=== PATIENT | male | born 1945 | race Caucasian/White ===

== ENCOUNTER 2021-03-05 17:56 | Outpatient (CLI) | payer OTHER | END 2021-03-05 17:57 | disposition critical access hospital (66) | LOC: EMS 17:56 | DX: S00.83XA Contusion of other part of head, initial encounter (principal); W19.XXXA Unspecified fall, initial encounter; Y92.003 Bedroom of unspecified non-institutional (private) residence as the place of occurrence of the external cause; R41.0 Disorientation, unspecified | CPT/HCPCS: A0425; A0429 ==

== ENCOUNTER 2021-03-05 18:30 | Inpatient (IN) | payer OTHER ==
[2021-03-05 18:53] LABS: BASOPHILS # (AUTO) 0.1 10^3/uL (0.0-0.1); BASOPHILS % (AUTO) 0.3 %; EOSINOPHILS # (AUTO) 0.3 10^3/uL (0.0-0.7); EOSINOPHILS % (AUTO) 1.5 %; HCT - HEMATOCRIT 43.2 % (42.0-52.0); HGB - HEMOGLOBIN 14.3 g/dL (14.0-18.0); LYMPHOCYTES # (AUTO) 0.2 10^3/uL (1.5-3.5); LYMPHOCYTES % (AUTO) 1.3 %; MEAN CORPUSCULAR HEMOGLOBIN 31.4 pg (27.0-31.0); MEAN CORPUSCULAR HGB CONC 33.1 g/dL (32.0-36.0); MEAN CORPUSCULAR VOLUME 94.7 fL (80.0-94.0); MEAN PLATELET VOLUME 10.9 fL (7.4-11.4); MONOCYTES # (AUTO) 1.2 10^3/uL (0.0-1.0); MONOCYTES % (AUTO) 6.3 %; NEUTROPHILS # (AUTO) 16.6 10^3/uL (1.5-6.6); NEUTROPHILS % (AUTO) 90.1 %; PLT - PLATELET COUNT 179 10^3/uL (130-450); RED BLOOD COUNT 4.56 10^6/uL (4.70-6.10); RED CELL DISTRIBUTION WIDTH 13.1 % (12.0-15.0); WHITE BLOOD COUNT 18.4 x10^3/uL (4.8-10.8)
[2021-03-05 18:58] LABS: INR 1.2 (0.8-1.2); PT - PROTHROMBIN TIME 12.8 secs (9.9-12.6); SLIDE REVIEW? Indicated
[2021-03-05 18:59] LABS: LACTIC ACID, VENOUS 2.1 mmol/L (0.5-2.2)
[2021-03-05 19:03] LABS: ALBUMIN 4.7 g/dL (3.2-5.5); ALBUMIN/GLOBULIN RATIO 1.8 (1.0-2.2); BILIRUBIN,TOTAL 0.7 mg/dL (0.2-1.0); CALCIUM 9.2 mg/dL (8.5-10.3); CREATININE 1.6 mg/dL (0.6-1.2); POTASSIUM 3.1 mmol/L (3.5-5.0); TOTAL PROTEIN 7.3 g/dL (6.7-8.2)
--- NOTE | 2021-03-05 19:04 | XRAY Report ---
PROCEDURE: Chest 1 View X-Ray INDICATIONS: fever TECHNIQUE: One view of the chest was acquired. COMPARISON: None. FINDINGS: Surgical changes and devices: None. Lungs and pleura: No pleural effusions or pneumothorax. Lungs are clear. Mediastinum: Mediastinal contours appear normal. Heart size is normal. Bones and chest wall: No suspicious bony lesions. Overlying soft tissues appear unremarkable. IMPRESSION: 1. No acute cardiopulmonary disease. Reviewed by: Yong Julien MD on 03/05/2021 7:03 PM [facility] Approved by: Yong Julien MD on 03/05/2021 7:03 PM [facility] Station ID: [id number]
[2021-03-05 19:05] LABS: PARTIAL THROMBOPLASTIN TIME 26.2 secs (24.9-33.3)
[2021-03-05 19:06] LABS: BILIRUBIN,URINE NEGATIVE (NEGATIVE); GLUCOSE, URINE (UA) NEGATIVE (NEGATIVE); KETONES,URINE (UA) NEGATIVE (NEGATIVE); LEUKOCYTE ESTERASE, URINE TRACE (NEGATIVE); NITRITE,URINE POSITIVE (NEGATIVE); OCCULT BLOOD,URINE LARGE (NEGATIVE); PROTEIN,URINE TRACE mg/dL (NEGATIVE); UROBILINOGEN,URINE 0.2 (NORMAL) E.U./dL (NORMAL)
[2021-03-05 19:18] LABS: CLARITY,URINE HAZY (CLEAR)
[2021-03-05 19:19] LABS: BACTERIA,URINE Few /HPF (None Seen); SQUAMOUS EPITHELIAL CELL,UR RARE Squamous (<= Few)
--- NOTE | 2021-03-05 19:36 | CT Report ---
PROCEDURE: HEAD WO INDICATIONS: fall, altered TECHNIQUE: Noncontrast 4.5 mm thick angled axial sections acquired from the foramen magnum to the vertex. For r adiation dose reduction, the following was used: automated exposure control, adjustment of mA and/or kV according to patient size. COMPARISON: None. FINDINGS: Image quality: Excellent. CSF spaces: There is moderate cerebral volume loss with prominence of the ventricles and sulci. Ther e is also ex vacuo dilatation of the posterior horn of the left lateral ventricle secondary to left p arietal encephalomalacia. Basal cisterns are patent. No extra-axial fluid collections. Brain: No intracranial hemorrhage, mass, or mass effect. There is a moderate region of encephalomalac ia within the left parietal lobe. A small region of encephalomalacia is also demonstrated in the left frontal lobe. There are periventricular and subcortical white matter hypodensities consistent with m oderate chronic small vessel ischemic changes. Skull and face: Calvarium and visualized facial bones are intact, without suspicious lesions. Sinuses: Visualized sinuses and mastoids are clear. IMPRESSION: 1. No acute intracranial abnormality. 2. Left frontal and parietal encephalomalacia consistent with sequelae of prior infarcts or trauma. T here is associated ex vacuo dilatation of the left lateral ventricle. 3. Moderate cerebral volume loss and chronic white matter vessel skin changes Reviewed by: Yong Julien MD on 03/05/2021 7:35 PM PST Approved by: Yong Julien MD on 03/05/2021 7:35 PM PST Station ID: [id number]
--- NOTE | 2021-03-05 19:43 | CT Report ---
PROCEDURE: CERVICAL SPINE WO INDICATIONS: fall, altered TECHNIQUE: Noncontrast 3 mm thick sections acquired from the skull base to the T4 level. Sagittal and coronal r eformats were then constructed. For radiation dose reduction, the following was used: automated exp osure control, adjustment of mA and/or kV according to patient size. COMPARISON: None. FINDINGS: Image quality: Excellent. Bones: No definite fractures or subluxation. There is minimal retrolisthesis at C3-C4 and C4-C5. Th ere is minimal anterolisthesis at C6-C7 and C7-T1. There is multilevel generative disc disease includ ing severe degeneration at C3-C4, C4-C5, C5-C6, and C6-C7. There is multilevel facet arthropathy incl uding severe degeneration at C7-T1. Visualized superior ribs are intact. Soft tissues: Prevertebral soft tissues are normal in thickness. No paravertebral hematomas. No ap ical pneumothoraces. There is bilateral calcified plaque within the carotid bulbs. IMPRESSION: 1. No definite fracture or dislocation. 2. Multilevel degenerative disc disease including severe degeneration in the mid and lower cervical s pine. 3. Multilevel facet arthropathy most prominent at C7-T1. Reviewed by: Yong Julien MD on 03/05/2021 7:41 PM PST Approved by: Yong Julien MD on 03/05/2021 7:41 PM PST Station ID: [id number]
[2021-03-05 19:50] LABS: PLATELET MORPHOLOGY NORMAL APPEARANCE (NORMAL); RBC MORPHOLOGY (MULTIPLE) NORMAL APPEARANCE (NORMAL)
[2021-03-05 19:51] LABS: PLATELET ESTIMATE, MANUAL NORMAL (130-450,000) (NORMAL)
[2021-03-05] MEDS ORDERED: SODIUM CHLORIDE 0.9% 1,000 ML IV STA (20:06)
[2021-03-05] MEDS ORDERED: cefTRIAXone 1 GM VIAL IVP STA (20:06)
--- NOTE | 2021-03-05 20:07 | ED Physician Documentation ---
History of Present Illness - Stated complaint Stated Complaint: GLF, CONFUSION,INCONTINENT, RT FACIAL PAIN - Chief complaint Chief Complaint: Trauma Hd/Nk - History obtained from History obtained from: Patient, EMS - History of Present Illness Timing: Today Pain level max: 0 Pain level now: 0 - Additonal information Additional information: Patient is a 75-year-old male who is brought in by EMS today. He was found down on the ground at home. Last seen normal at about noon. He normally is coherent and able to take care of himself. Per family on scene per EMS patient was very confused and disoriented. Unknown how long he has been on the ground. Patient denies any pain. He was found to be incontinent. Review of Systems Unable to obtain: Confused Constitutional: reports: Fever (febrile here) Respiratory: denies: Cough GI: denies: Vomiting, Diarrhea PD PAST MEDICAL HISTORY - Past Medical History Past Medical History: Yes Cardiovascular: Hypertension Neuro: CVA - Present Medications Home Medications: Ambulatory Orders Medication Instructions Recorded Confirmed Atorvastatin [Lipitor] 1 tablet ORAL DAILY 03/05/21 03/05/21 Clopidogrel [Plavix] 1 tablet ORAL DAILY 03/05/21 03/05/21 Lisinopril [Zestril] 10 mg PO DAILY 03/05/21 03/05/21 Sertraline [Zoloft] 1 tab ORAL DAILY 03/05/21 03/05/21 amLODIPine [Norvasc] 1 tab ORAL DAILY 03/05/21 03/05/21 - Allergies Allergies/Adverse Reactions: Allergies Allergy/AdvReac Type Severity Reaction Status Date / Time No Known Drug Allergies Allergy Verified 03/05/21 18:38 - Living Situation Living Situation: reports: With family Living Arrangement: reports: At home - Social History Does the pt have substance abuse?: No PD ED PE NORMAL - Vitals Vital signs reviewed: Yes - General General: No acute distress, Well developed/nourished, Other (Alert, oriented to person and place, not to time) - HEENT HEENT: PERRL - Neck Neck: Supple, no meningeal sign - Cardiac Cardiac: RRR - Respiratory Respiratory: No respiratory distress, Clear bilaterally - Abdomen Abdomen: Soft, Non tender, Non distended - Back Back: No spinal TTP - Derm Derm: Warm and dry - Extremities Extremities: No calf tenderness / cord - Neuro Neuro: No motor deficit, No sensory deficit, Other (Alert, oriented to person and place, not to time) Eye Opening: Spontaneous Motor: Obeys Commands Verbal: Confused GCS Score: 14 - Psych Psych: Normal mood, Normal affect Results - Vitals Vitals: Vital Signs - 24 hr 03/05/21 03/05/21 03/05/21 18:31 19:18 21:05 Temperature 39.1 C H 37.2 C Heart Rate 105 H 97 92 Respiratory 25 H 21 25 H Rate Blood Pressure 111/72 113/71 117/77 O2 Saturation 97 96 98 Oxygen O2 Source Room air - EKG (time done) 1857 Rate: Rate (enter#) (98) Rhythm: NSR [place]: Normal Intervals: Prolonged [place] QRS: Normal Ischemia: Normal ST segments - Labs Labs: Laboratory Tests 03/05/21 03/05/21 03/05/21 18:36 18:36 18:36 WBC 18.4 H RBC 4.56 L Hgb 14.3 Hct 43.2 MCV 94.7 H MCH 31.4 H MCHC 33.1 RDW 13.1 Plt Count 179 MPV 10.9 Neut # (Auto) 16.6 H Lymph # (Auto) 0.2 L [place] # (Auto) 1.2 H Eos # (Auto) 0.3 Baso # (Auto) 0.1 Absolute Nucleated RBC 0.00 Nucleated RBC % 0.0 Manual Slide Review Indicated Platelet Estimate NORMAL (130-450,000) Platelet Morphology NORMAL APPEARANCE RBC Morph Micro Appear NORMAL APPEARANCE PT 12.8 H INR 1.2 APTT 26.2 Sodium 137 Potassium 3.1 L Chloride 103 Carbon Dioxide 23 Anion Gap 11.0 BUN 38 H Creatinine 1.6 H Estimated GFR (MDRD) 43 L Glucose 123 H Lactic Acid Calcium 9.2 Total Bilirubin 0.7 AST 61 H ALT 16 Alkaline Phosphatase 45 Total Protein 7.3 Albumin 4.7 Globulin 2.6 Albumin/Globulin Ratio 1.8 Lipase 29 Urine Color Urine Clarity Urine pH Ur Specific [place] Urine Protein Urine Glucose (UA) Urine Ketones Urine Occult Blood Urine Nitrite Urine Bilirubin Urine Urobilinogen Ur Leukocyte Esterase Urine RBC Urine WBC Ur Squamous Epith Cells Urine Bacteria Ur Microscopic Review Urine Culture Comments Nasal Adenovirus (PCR) Nasal B. parapertussis DNA (PCR) Nasal Coronavir 229E PCR Nasal Coronavir HKU1 PCR Nasal Coronavir NL63 PCR Nasal Coronavir OC43 PCR Nasal Enterovir/Rhinovir PCR Nasal Influenza B PCR Nasal Influenza A PCR Nasal Parainfluen 1 PCR Nasal Parainfluen 2 PCR Nasal Parainfluen 3 PCR Nasal Parainfluen 4 PCR Nasal RSV (PCR) Nasal B.pertussis DNA PCR Nasal C.pneumoniae (PCR) [place] Human Metapneumo PCR Nasal M.pneumoniae (PCR) Nasal SARS-CoV-2 (PCR) 03/05/21 03/05/21 03/05/21 18:36 18:55 18:55 WBC RBC Hgb Hct MCV MCH MCHC RDW Plt Count MPV Neut # (Auto) Lymph # (Auto) [place] # (Auto) Eos # (Auto) Baso # (Auto) Absolute Nucleated RBC Nucleated RBC % Manual Slide Review Platelet Estimate Platelet Morphology RBC Morph Micro Appear PT INR APTT Sodium Potassium Chloride Carbon Dioxide Anion Gap BUN Creatinine Estimated GFR (MDRD) Glucose Lactic Acid 2.1 Calcium Total Bilirubin AST ALT Alkaline Phosphatase Total Protein Albumin Globulin Albumin/Globulin Ratio Lipase Urine Color BROWN Urine Clarity HAZY Urine pH 5.0 Ur Specific [place] 1.025 Urine Protein TRACE Urine Glucose (UA) NEGATIVE Urine Ketones NEGATIVE Urine Occult Blood LARGE H Urine Nitrite POSITIVE H Urine Bilirubin NEGATIVE Urine Urobilinogen 0.2 (NORMAL) Ur Leukocyte Esterase TRACE H Urine RBC 6-10 H Urine WBC 6-10 H Ur Squamous Epith Cells RARE Squamous Urine Bacteria Few Ur Microscopic Review INDICATED Urine Culture Comments INDICATED Nasal Adenovirus (PCR) NOT DETECTED Nasal B. parapertussis DNA (PCR) NOT DETECTED Nasal Coronavir 229E PCR NOT DETECTED Nasal Coronavir HKU1 PCR NOT DETECTED Nasal Coronavir NL63 PCR NOT DETECTED Nasal Coronavir OC43 PCR NOT DETECTED Nasal Enterovir/Rhinovir PCR NOT DETECTED Nasal Influenza B PCR NOT DETECTED Nasal Influenza A PCR NOT DETECTED Nasal Parainfluen 1 PCR NOT DETECTED Nasal Parainfluen 2 PCR NOT DETECTED Nasal Parainfluen 3 PCR NOT DETECTED Nasal Parainfluen 4 PCR NOT DETECTED Nasal RSV (PCR) NOT DETECTED Nasal B.pertussis DNA PCR NOT DETECTED Nasal C.pneumoniae (PCR) NOT DETECTED [place] Human Metapneumo PCR NOT DETECTED Nasal M.pneumoniae (PCR) NOT DETECTED Nasal SARS-CoV-2 (PCR) NOT DETECTED - Rads (name of study) head Ct Radiology: Final report received, EMP read contemporaneously, See rad report c-spine CT Radiology: Final report received, EMP read contemporaneously, See rad report abd/pelvis CT Radiology: Final report received, EMP read contemporaneously, See rad report PD MEDICAL DECISION MAKING - ED course Complexity details: reviewed results, re-evaluated patient, considered differential, d/w patient ED course: 75-year-old male with with continued altered mental status. Appears to have pyelonephritis with fever and altered mental status. Likely early sepsis. Given IV fluids, IV antibiotics. We will admit for further care. Discussed the case with Dr. Celestin, hospitalist who accepts This document was made in part using voice recognition software. While efforts a re made to proofread this document, sound alike and grammatical errors may occur. Departure - Departure Disposition: 66 [facility] DC/Xfer Clinical Impression: Pyelonephritis UTI (urinary tract infection) Qualifiers: Urinary tract infection type: acute pyelonephritis Qualified Code(s): N10 - Acute pyelonephritis Fever Qualifiers: Fever type: unspecified Qualified Code(s): R50.9 - Fever, unspecified Altered mental status Qualifiers: Altered mental status type: disorientation Qualified Code(s): R41.0 - Disorientation, unspecified Sepsis Qualifiers: Sepsis type: sepsis due to unspecified organism Sepsis acute organ dysfunction status: without acute organ dysfunction Qualified Code(s): A41.9 - Sepsis, unspecified organism Condition: Stable
[2021-03-05 20:30] LABS: B. PARAPERTUSSIS- RESP PCR PAN NOT DETECTED; B. PERTUSSIS- RESP PCR PANEL NOT DETECTED; C. PNEUMONIAE- RESP PCR PANEL NOT DETECTED; CORONAVIRUS 229E-RESP PCR NOT DETECTED; CORONAVIRUS HKU1-RESP PCR NOT DETECTED; CORONAVIRUS NL63-RESP PCR NOT DETECTED; CORONAVIRUS OC43-RESP PCR NOT DETECTED; HUMAN METAPNEUMOVIRUS NOT DETECTED; INFLUENZA A- RESP PCR PANEL NOT DETECTED; INFLUENZA B - RESP PCR PANEL NOT DETECTED; M. PNEUMONIAE- RESP PCR PANEL NOT DETECTED; PARAINFLUENZA VIRUS 1 NOT DETECTED; PARAINFLUENZA VIRUS 2 NOT DETECTED; PARAINFLUENZA VIRUS 3 NOT DETECTED; PARAINFLUENZA VIRUS 4 NOT DETECTED; RHINOVIRUS/ENTEROVIRUS NOT DETECTED; RSV- RESP PCR PANEL NOT DETECTED; SARS-CoV-2 -RESP PCR PANEL NOT DETECTED
--- NOTE | 2021-03-05 20:47 | CT Report ---
PROCEDURE: Abdomen/Pelvis WO INDICATIONS: fever, UTI TECHNIQUE: Noncontrast 5 mm thick sections acquired from the diaphragms to the symphysis. 5 mm coronal and sagi ttal reformats were then performed. For radiation dose reduction, the following was used: automated exposure control, adjustment of mA and/or kV according to patient size. COMPARISON: None. FINDINGS: Image quality: Excellent. ABDOMEN: Lung bases: There is mild dependent atelectasis. Heart size is normal. There is a small hiatal hernia . Solid organs: Noncontrast evaluation of the liver demonstrates no focal hepatic lesions. Gallbladder appears within normal limits without calcified gallstones. Pancreas is normal in contours. No adren al nodules. The right kidney appears atrophic in size. There is no hydronephrosis. Mild nonspecific perinephric s tranding is demonstrated bilaterally. Bilateral vascular calcifications are demonstrated within the r enal arteries which limits evaluation for nonobstructing renal stones. There is an exophytic slightly hyperdense lesion in the left kidney measuring up to 1.2 cm which may represent a solid mass or hype rdense cyst. Peritoneum and bowel: Small and large bowel loops demonstrate normal wall thickness and caliber. The appendix is normal in appearance. There is colonic diverticulosis without acute diverticulitis. No fr ee fluid or air. Nodes and vessels: No retroperitoneal or mesenteric adenopathy by size criteria. Aorta and inferior vena cava are normal in caliber. There is extensive apical scarring vascular calcification most prom inent within the iliac arteries bilaterally. Evaluation limited in the absence of intravenous contras t. Miscellaneous: No ventral hernias. PELVIS: Genitourinary: There are dependent calcifications within the bladder measuring up to 0.8 cm compatibl e with urinary stones. Bladder wall appears normal in thickness. Miscellaneous: No inguinal hernias or adenopathy. Bones: No suspicious bony lesions. No vertebral body compression fractures. IMPRESSION: 1. No evidence of hydronephrosis. Mild nonspecific perinephric stranding is demonstrated bilaterally. No obstructing renal stones. 2. Dependent urinary stones within the bladder. No definite bladder wall thickening or fat stranding to suggest cystitis. 3. Small exophytic slightly hyperdense mass or cyst extending posteriorly from the left kidney. Initi al further evaluation may be obtained with a dedicated renal ultrasound. 4. Colonic diverticulosis. Reviewed by: Yong Julien MD on 03/05/2021 8:45 PM PST Approved by: Yong Julien MD on 03/05/2021 8:45 PM PST Station ID: [id number]
[2021-03-05] MEDS ORDERED: SODIUM CHLORIDE FLUSH 0.9% 10 ML SYRINGE IVP PRN (21:19)
[2021-03-05] MEDS ORDERED: ACETAMINOPHEN 325 MG TABLET PO PRN (21:19)
--- NOTE | 2021-03-05 21:29 | HISTORY & PHYSICAL EXAMINATION ---
Chief Complaint - Chief Complaint Chief Complaint: Found down, confused History of Present Illness - Admitted From Admitted From:: ED - History Obtained From History obtained from: ED provider and chart review - History of Present Illness HPI Comment/Other: This is a 75 year old white male with history of stroke about 10 years ago with unknown amount of residual deficit, and he lives with his son. He also has HTN and depression. Today the son found the patient down on the floor in the house and called 911. The paramedics found him to be confused, incontinent of urine b ut with stable vital signs. In the ED, he had a fever of 39 degrees C, elevated WBC of 18, Lactic Acid level of 2.1, and was still confused. His U/A showed large blood, (+) nitrites, high WBCs and bacteria present. His BUN/creat are elevated at 38/1.6 and there are no prior labs done here for comparison. The patient underwent a head CT, C-spine imaging and abdomen CT. These showed brain encephalomalacia consistent with old strokes, no acute stroke or hemorrhage, no trauma, and stones visible in the urinary bladder, an atrophied R kidney, perinephric stranding, but no hydronephrosis. He received iv Ceftiaxone and was started on iv fluids in the ED. He was presented to the Hospitalist team for admission for treatment of altered mental status, fever and complicated UTI. History - Past Medical History Cardiovascular: reports: Hypertension, High cholesterol Respiratory: reports: None Neuro: reports: CVA Endocrine/Autoimmune: reports: None GI: reports: None : reports: Other (Unknown) Psych: reports: Depression - Family & Social History Family History Comment/Other: Patient lives with his son [place]. He no longer drives. He is an avid fisherman. He is retired from [employer]. Living arrangement: At home Living Situation: With family Social History Notes: He quit smoking over 5 years ago. He drinks no alcohol. He uses no recreational or illicit drugs. - Substance History Use: Uses substance without health or social issues: NONE Meds/Allgy - Home Medications Home Medications: Ambulatory Orders Medication Instructions Recorded Confirmed Atorvastatin [Lipitor] 1 tablet ORAL DAILY 03/05/21 03/05/21 Clopidogrel [Plavix] 1 tablet ORAL DAILY 03/05/21 03/05/21 Lisinopril [Zestril] 10 mg PO DAILY 03/05/21 03/05/21 Sertraline [Zoloft] 1 tab ORAL DAILY 03/05/21 03/05/21 amLODIPine [Norvasc] 1 tab ORAL DAILY 03/05/21 03/05/21 - Allergies Allergies/Adverse Reactions: Allergies Allergy/AdvReac Type Severity Reaction Status Date / Time No Known Drug Allergies Allergy Verified 03/05/21 18:38 Review of Systems - Constitutional Constitutional: reports: Weakness (He remembers being on the floor but cannot remember how he got there.) - Musculoskeletal Musculoskeletal: reports: Other (Uses a walker to ambulate) - Neurological Neurological: reports: Memory problems - All Other Systems All Other Systems: reports: Other (A more complete review of systems could not be done since the patient is confused and slow to respond or says "I don't know" and is a poor historian.) Exam - Vital Signs Reviewed Vital Signs: Yes Vital Signs: Vital Signs x48h Temp Pulse Resp BP Pulse Ox 03/05/21 21:05 92 25 H 117/77 98 03/05/21 19:18 37.2 C 97 21 113/71 96 03/05/21 18:31 39.1 C H 105 H 25 H 111/72 97 - Physical Exam General Appearance: positive: No acute distress, Other (Disheveled with long hair and long baltazar, and appears older than his age.) Eyes Bilateral: positive: Normal inspection, EOMI ENT: positive: Dry mucous membranes Neck: positive: Nml inspection Respiratory: positive: No respiratory distress, Breath sounds nml Cardiovascular: positive: Regular rate & rhythm, No murmur Abdomen: positive: Non-tender, Nml bowel sounds, No distention Skin: positive: Warm, Dry Extremities: positive: Non-tender, No pedal edema Neurologic/Psychiatric: positive: Disoriented to person, Disoriented to time, Other (Equal strength bilat UEs and LEs, L hand has a resting tremor. Slow to answer and needs questions asked different ways ("Who do live with"? No answer. "Does your son have a ?","Yes" Does she live with you?", "Yes".) Sepsis Event Note (H) - Sepsis Criteria Sepsis Criteria: Recorded Temperature greater than 38.3C or Less than 36C, Recorded Heart Rate greater than 90 bpm, WBC count greater than 12,000 or less than 4000, ELECTRICAL SIGN SERVICER: altered consciousness (unrelated to primary neuro pathology), Metabolic: lactate > 2 mmol/L Conclusion/Plan - Problem List (1) Sepsis Conclusion/Plan: He has several criteria for sepsis. He will be admitted to inpatient status. Continue with IV fluids. Continue with empiric IV ceftriaxone, awaiting urine and blood cultures, sensitivities for adjustment of antibiotics. Follow WBC daily Qualifiers: Sepsis type: sepsis due to unspecified organism Qualified Code(s): A41.9 - Sepsis, unspecified organism (2) Pyelonephritis Conclusion/Plan: His urinalysis had hematuria. Altered mental status is likely related to his urinary tract infection. The CT imaging showed perinephric stranding which is consistent with pyelonephritis. Continue with IV antibiotics awaiting culture and sensitivity results. (3) Bladder stones Conclusion/Plan: There are currently no stones in the kidney creating obstruction. We will order a uric acid level. (4) MARIS (acute kidney injury) Conclusion/Plan: He has not had labs done at this hospital in the past therefore unknown if this is CKD related to the atrophic kidney seen on abdomen imaging or if this is MARIS related to this UTI. Avoid nephrotoxins. IV fluids will continue. Follow BMP daily (5) Altered mental status Conclusion/Plan: According to the ED provider discussion with the son, this confusion is more than his normal. Will give IV fluids and antibiotics for treatment of the UTI and follow his neuro status for hopeful improvement. Will order PT to evaluate and to continue walking with him to prevent deconditioning Qualifiers: Altered mental status type: disorientation Qualified Code(s): R41.0 - Disorientation, unspecified (6) Hypokalemia Conclusion/Plan: Replace. Follow BMP daily (7) History of CVA with residual deficit Conclusion/Plan: Brain imaging indicates significant encephalomalacia as a result of more than 1 prior stroke. We will continue with his daily antiplatelet agent and statin. (8) Hx of essential hypertension Conclusion/Plan: Patient normally takes lisinopril and amlodipine for blood pressure but here his blood pressure is normal at 120s over 80s. Will not yet resume his blood pressure meds until blood pressure rises. (9) Depression Conclusion/Plan: We will continue his home dose of Zoloft - Lab Results Fish Bones: 03/05/21 18:36 03/05/21 18:36
[2021-03-05] MEDS: SODIUM CHLORIDE 0.9% 1,000 ML IV SCH (22:01)
[2021-03-05] MEDS ORDERED: ZINC OXIDE 20% OINT 30 GM TUBE TOP PRN (22:57)
[2021-03-05] MEDS ORDERED: POTASSIUM CHLORIDE 20 MEQ TABLET PO ONE (23:46)
[2021-03-06] MEDS: SODIUM CHLORIDE FLUSH 0.9% 10 ML SYRINGE IVP SCH ×3 (00:27→17:02)
[2021-03-06 06:06] LABS: BASOPHILS % (AUTO) 0.3 %; EOSINOPHILS % (AUTO) 0.1 %; HGB - HEMOGLOBIN 12.2 g/dL (14.0-18.0); LYMPHOCYTES # (AUTO) 0.9 10^3/uL (1.5-3.5); LYMPHOCYTES % (AUTO) 6.4 %; MEAN CORPUSCULAR HEMOGLOBIN 31.3 pg (27.0-31.0); MEAN CORPUSCULAR VOLUME 94.9 fL (80.0-94.0); MEAN PLATELET VOLUME 10.8 fL (7.4-11.4); MONOCYTES # (AUTO) 0.9 10^3/uL (0.0-1.0); MONOCYTES % (AUTO) 6.5 %; NEUTROPHILS # (AUTO) 12.1 10^3/uL (1.5-6.6); NEUTROPHILS % (AUTO) 86.3 %; PLT - PLATELET COUNT 144 10^3/uL (130-450); RED CELL DISTRIBUTION WIDTH 13.2 % (12.0-15.0)
[2021-03-06 06:19] LABS: ALBUMIN 3.4 g/dL (3.2-5.5); ALBUMIN/GLOBULIN RATIO 1.5 (1.0-2.2); BILIRUBIN,TOTAL 0.7 mg/dL (0.2-1.0); CALCIUM 8.2 mg/dL (8.5-10.3); CREATININE 1.3 mg/dL (0.6-1.2); POTASSIUM 3.5 mmol/L (3.5-5.0); TOTAL PROTEIN 5.7 g/dL (6.7-8.2)
[2021-03-06] MEDS: SODIUM CHLORIDE 0.9% 1,000 ML IV SCH (07:54)
[2021-03-06] MEDS ORDERED: cefTRIAXone 2 GM in SODIUM CHLORIDE 0.9% MINIBAG 100 ML IV SCH (09:00)
[2021-03-06] MEDS ORDERED: cefTRIAXone 1 GM in SODIUM CHLORIDE 0.9% MINIBAG 100 ML IV SCH (09:00)
[2021-03-06] MEDS: cefTRIAXone 2 GM in SODIUM CHLORIDE 0.9% MINIBAG 100 ML IV SCH (09:11)
[2021-03-06] MEDS: CLOPIDOGREL 75 MG TABLET PO SCH (09:11)
[2021-03-06] MEDS: SERTRALINE 25 MG TABLET PO SCH (09:11)
--- NOTE | 2021-03-06 09:40 | PHARMACY PROGRESS NOTE ---
- Best Possible Medication History Admit Date and Time: 03/05/212118 Processed by: Nursing Medication History completed: Yes As the person ultimately responsible for medication therapy, providers are able to order a medication from an existing home medication list in [facility] via the "Reconcile Routine" prior to Confirmation of that medication by business support manager. Such practice is discouraged except when the physician, in their clinical judgment, deems that a medical need exists for a medication without regard to previous use.
--- NOTE | 2021-03-06 10:38 | ADVANCE CARE PLANNING NOTE ---
Advance Care Planning - Planning Encounter Date: 03/06/21 Time: 09:20 Purpose: Advanced care plan for patient Parties in Attendance: Patient and me Decisional Capacity of the Patient: pt is alert, orientated to himself, he know the hospital name, who is president, but unaware of the day. - Encounter Subjective/Patient's Story: Patient reported he had a stroke about 10 to 12 years ago. Since that, his quality life had reduce. He liked fishing before, now he can not fish. He can walk with walker at home. He lives with his son in [facility]. Patient report he smoked over 20 years, he stopped to smoke about 6 to 8 years ago. He has no alcohol or drug problem. He used to work at [employer]. He had 2 sons. he live with his son and two grandchildren. he report His father born in 1921, 1984, He did not remember what caused his father . His mother 20 years ago, unknown cause. He also reported he had no COVID-19 vaccination because he did not believe. Clearly patient would like to have "do not resuscitation, do not intubation" for his CODE STATUS. Objective/Medical Story: Patient has a medical history of stroke, hypertension, depression. You walk with a walker in the home. Patient was admitted in the hospital this time for fall in the home, confusion, and fever. Patient was found to have urinary sepsis. Goals of Care: Stabilization for his sepsis, hope d/c to home after he became Hemodynamically stable Plan: Stabilization for his sepsis, Antibiotics treatment for his urinary tract infection, nurse help pt out of bed to see if need PT/OT evaluation, hope d/c to home after he became Hemodynamically stable, Switch patient's CODE STATUS from full code to DNR per patient's wish. Code Status: Do Not Attempt Resuscitation Time spent on advance care plannin
--- NOTE | 2021-03-06 12:35 | PROVIDER PROGRESS NOTE ---
Assessment/Plan - Problem List (1) Altered mental status Qualifiers: Altered mental status type: disorientation Qualified Code(s): R41.0 - Disorientation, unspecified Assessment/Plan: 03/06 pt significantly improved. pt is alert and oriented +2, himself and location. it was likely caused by infection and fever. Continue antibiotics, IV fluids, neuro Check (2) Sepsis improved. Patient has no fever at today, WBC is reduced. Patient feels better, patient's mental status improved. 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 Blood culture and urine sensitivity study are pending (3) Pyelonephritis His urinalysis had hematuria, positive nitrite, esterase, pyuria. Altered mental status is likely related to his urinary tract infection. The CT imaging showed perinephric stranding which is suggestive to pyelonephritis. Continue with IV antibiotics, Intravenous IV fluids, awaiting Blood culture and sensitivity results. (4) Bladder stones Patient denies pain, CT of abdomen/pelvis reveal no evidence of obstruction, Continue IV fluids (5) MARIS (acute kidney injury) improved. Creatinine is 1.3 from 1.6 at admission. Avoid nephrotoxins. continue IV fluids will continue. Follow BMP daily (6) Hypokalemia resolved (7) History of CVA with residual deficit stable, continue antiplatelet agent and statin. (8) Hx of essential hypertension stable (9) Depression stable, continue home dose of Zoloft - Current Meds Current Meds: Current Medications Generic Name Dose Route Start Last Admin Trade Name Freq PRN Reason Stop Dose Admin Acetaminophen 650 mg 03/05/21 21:19 03/06/21 00:00 Acetaminophen 325 Mg Tablet PO 650 mg Q4HR PRN Administration Pain or Fever > 38C (100.4F) Clopidogrel Bisulfate 75 mg 03/06/21 09:00 03/06/21 09:11 Clopidogrel 75 Mg Tablet PO 75 mg DAILY CAROLYN Administration Sodium Chloride 1,000 mls @ 100 mls/hr 03/05/21 22:00 03/06/21 07:54 Normal Saline 0.9% IV 03/06/21 17:59 100 mls/hr .Q10H CAROLYN Administration Ceftriaxone Sodium 2 gm/ 100 mls @ 200 mls/hr 03/06/21 09:30 03/06/21 09:45 Sodium Chloride IV Infused DAILY CAROLYN Infusion Sertraline HCl 25 mg 03/06/21 09:00 03/06/21 09:11 Sertraline 25 Mg Tablet PO 25 mg DAILY CAROLYN Administration Sodium Chloride 10 ml 03/05/21 21:19 03/05/21 22:01 Sodium Chloride Flush 0.9% 10 Ml Syringe IVP 10 ml PRN PRN Administration NEEDED PER PROVIDER ORDERS Sodium Chloride 10 ml 03/06/21 01:00 03/06/21 09:11 Sodium Chloride Flush 0.9% 10 Ml Syringe IVP 10 ml 0100,0900,1700 CAROLYN Administration - Lab Result Fish Bone Diagrams: 03/06/21 05:33 03/06/21 05:33 - Additional Planning My Orders: My Active Orders 03/06/21 09:30 cefTRIAXone [Rocephin] 2 gm Sodium Chloride 0.9% Minibag [Normal Saline 0.9% Minibag] 100 ml IV DAILY 03/06/21 10:29 Out of bed 3+ hours today [RC] TID 03/06/21 10:36 Code Status [OTHERS] Routine 03/06/21 21:00 Atorvastatin [Lipitor] 20 mg PO QPM Subjective - Subjective Patient Reports: Feeling Better, Resting Comfortably Objective Vital Signs: Vital Signs - 24 hr 03/05/21 03/05/21 03/05/21 18:31 19:18 21:05 Temperature 39.1 C H 37.2 C Heart Rate 105 H 97 92 Heart Rate [ Brachial] Heart Rate [ Monitoring electrodes] Respiratory 25 H 21 25 H Rate Blood Pressure 111/72 113/71 117/77 Blood Pressure [Right Brachial artery] O2 Saturation 97 96 98 03/05/21 03/05/21 03/06/21 22:20 23:51 01:24 Temperature 37.1 C 38.4 C H 37.4 C Heart Rate Heart Rate [ 82 Brachial] Heart Rate [ 91 Monitoring electrodes] Respiratory 18 24 Rate Blood Pressure Blood Pressure 99/64 104/58 L [Right Brachial artery] O2 Saturation 99 96 03/06/21 03/06/21 05:39 07:55 Temperature 36.9 C 37 C Heart Rate Heart Rate [ 65 75 Brachial] Heart Rate [ Monitoring electrodes] Respiratory 24 21 Rate Blood Pressure Blood Pressure 124/54 L 119/57 L [Right Brachial artery] O2 Saturation 96 98 Oxygen O2 Source Room air I&O (Last 24 Hrs): Intake and Output Totals x24h 03/04/21 03/05/21 03/06/21 23:59 23:59 23:59 Intake Total 1000 1718.333 Output Total 300 Balance 1000 1418.333 General: Alert, Oriented x3, Cooperative, No acute distress HEENT: Atraumatic, PERRLA Neck: Supple Lymphatic: no adenopathy Neuro: Alert, Oriented Times 3 Cardiovascular: Regular rate, Normal S1, Normal S2 Respiratory: Chest non-tender, No respiratory distress Abdomen: Normal bowel sounds, Soft Extremities: Normal pulses - Results Results: Laboratory Results WBC 14.0 x10^3/uL (4.8-10.8) H 03/06/21 05:33 RBC 3.90 10^6/uL (4.70-6.10) L 03/06/21 05:33 Hgb 12.2 g/dL (14.0-18.0) L 03/06/21 05:33 Hct 37.0 % (42.0-52.0) L 03/06/21 05:33 MCV 94.9 fL (80.0-94.0) H 03/06/21 05:33 MCH 31.3 pg (27.0-31.0) H 03/06/21 05:33 MCHC 33.0 g/dL (32.0-36.0) 03/06/21 05:33 RDW 13.2 % (12.0-15.0) 03/06/21 05:33 Plt Count 144 10^3/uL (130-450) 03/06/21 05:33 MPV 10.8 fL (7.4-11.4) 03/06/21 05:33 Neut # (Auto) 12.1 10^3/uL (1.5-6.6) H 03/06/21 05:33 Lymph # (Auto) 0.9 10^3/uL (1.5-3.5) L 03/06/21 05:33 Travis # (Auto) 0.9 10^3/uL (0.0-1.0) 03/06/21 05:33 Eos # (Auto) 0.0 10^3/uL (0.0-0.7) 03/06/21 05:33 Baso # (Auto) 0.0 10^3/uL (0.0-0.1) 03/06/21 05:33 Absolute Nucleated RBC 0.00 x10^3/uL 03/06/21 05:33 Nucleated RBC % 0.0 /100WBC 03/06/21 05:33 Manual Slide Review Indicated 03/05/21 18:36 Platelet Estimate NORMAL (130-450,000) (NORMAL) 03/05/21 18:36 Platelet Morphology NORMAL APPEARANCE (NORMAL) 03/05/21 18:36 RBC Morph Micro Appear NORMAL APPEARANCE (NORMAL) 03/05/21 18:36 PT 12.8 secs (9.9-12.6) H 03/05/21 18:36 INR 1.2 (0.8-1.2) 03/05/21 18:36 APTT 26.2 secs (24.9-33.3) 03/05/21 18:36 Sodium 139 mmol/L (135-145) 03/06/21 05:33 Potassium 3.5 mmol/L (3.5-5.0) 03/06/21 05:33 Chloride 109 mmol/L (101-111) 03/06/21 05:33 Carbon Dioxide 21 mmol/L (21-32) 03/06/21 05:33 Anion Gap 9.0 (6-13) 03/06/21 05:33 BUN 31 mg/dL (6-20) H 03/06/21 05:33 Creatinine 1.3 mg/dL (0.6-1.2) H 03/06/21 05:33 Estimated GFR (MDRD) 54 (>89) L 03/06/21 05:33 Glucose 102 mg/dL (70-100) H 03/06/21 05:33 Lactic Acid 1.3 mmol/L (0.5-2.2) 03/05/21 22:23 Calcium 8.2 mg/dL (8.5-10.3) L 03/06/21 05:33 Total Bilirubin 0.7 mg/dL (0.2-1.0) 03/06/21 05:33 AST 261 IU/L (10-42) H 03/06/21 05:33 ALT 35 IU/L (10-60) 03/06/21 05:33 Alkaline Phosphatase 31 IU/L (42-121) L 03/06/21 05:33 Total Protein 5.7 g/dL (6.7-8.2) L 03/06/21 05:33 Albumin 3.4 g/dL (3.2-5.5) 03/06/21 05:33 Globulin 2.3 g/dL (2.1-4.2) 03/06/21 05:33 Albumin/Globulin Ratio 1.5 (1.0-2.2) 03/06/21 05:33 Lipase 29 U/L (22-51) 03/05/21 18:36 Urine Color BROWN 03/05/21 18:55 Urine Clarity HAZY (CLEAR) 03/05/21 18:55 Urine pH 5.0 PH (5.0-7.5) 03/05/21 18:55 Ur Specific [place] 1.025 (1.002-1.030) 03/05/21 18:55 Urine Protein TRACE mg/dL (NEGATIVE) 03/05/21 18:55 Urine Glucose (UA) NEGATIVE mg/dL (NEGATIVE) 03/05/21 18:55 Urine Ketones NEGATIVE mg/dL (NEGATIVE) 03/05/21 18:55 Urine Occult Blood LARGE (NEGATIVE) H 03/05/21 18:55 Urine Nitrite POSITIVE (NEGATIVE) H 03/05/21 18:55 Urine Bilirubin NEGATIVE (NEGATIVE) 03/05/21 18:55 Urine Urobilinogen 0.2 (NORMAL) E.U./dL (NORMAL) 03/05/21 18:55 Ur Leukocyte Esterase TRACE (NEGATIVE) H 03/05/21 18:55 Urine RBC 6-10 /HPF (0-5) H 03/05/21 18:55 Urine WBC 6-10 /HPF (0-3) H 03/05/21 18:55 Ur Squamous Epith Cells RARE Squamous (<= Few) 03/05/21 18:55 Urine Bacteria Few /HPF (None Seen) 03/05/21 18:55 Ur Microscopic Review INDICATED 03/05/21 18:55 Urine Culture Comments INDICATED 03/05/21 18:55 Nasal Adenovirus (PCR) NOT DETECTED 03/05/21 18:55 Nasal B. parapertussis DNA (PCR) NOT DETECTED 03/05/21 18:55 Nasal Coronavir 229E PCR NOT DETECTED 03/05/21 18:55 Nasal Coronavir HKU1 PCR NOT DETECTED 03/05/21 18:55 Nasal Coronavir NL63 PCR NOT DETECTED 03/05/21 18:55 Nasal Coronavir OC43 PCR NOT DETECTED 03/05/21 18:55 Nasal Enterovir/Rhinovir PCR NOT DETECTED 03/05/21 18:55 Nasal Influenza B PCR NOT DETECTED 03/05/21 18:55 Nasal Influenza A PCR NOT DETECTED 03/05/21 18:55 Nasal Parainfluen 1 PCR NOT DETECTED 03/05/21 18:55 Nasal Parainfluen 2 PCR NOT DETECTED 03/05/21 18:55 Nasal Parainfluen 3 PCR NOT DETECTED 03/05/21 18:55 Nasal Parainfluen 4 PCR NOT DETECTED 03/05/21 18:55 Nasal RSV (PCR) NOT DETECTED 03/05/21 18:55 Nasal B.pertussis DNA PCR NOT DETECTED 03/05/21 18:55 Nasal C.pneumoniae (PCR) NOT DETECTED 03/05/21 18:55 Glen Human Metapneumo PCR NOT DETECTED 03/05/21 18:55 Nasal M.pneumoniae (PCR) NOT DETECTED 03/05/21 18:55 Nasal SARS-CoV-2 (PCR) NOT DETECTED 03/05/21 18:55 Sepsis Event Note (H) - Sepsis Criteria Sepsis Criteria: Recorded Temperature greater than 38.3C or Less than 36C, R ecorded Heart Rate greater than 90 bpm, WBC count greater than 12,000 or less than 4000, 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 (unrelated to primary neuro pathology), Metabolic: lactate > 2 mmol/L ABX Reporting Has patient been on IV antibiotics over the past 48 hours?: Yes Current Medications - Current Medications Current Medications: Active Medications Acetaminophen (Acetaminophen 325 Mg Tablet) 650 mg PO Q4HR PRN PRN Reason: Pain or Fever > 38C (100.4F) Last Admin: 03/06/21 00:00 Dose: 650 mg Documented by: Atorvastatin Calcium (Atorvastatin 10 Mg Tablet) 20 mg PO QPM CAROLYN Clopidogrel Bisulfate (Clopidogrel 75 Mg Tablet) 75 mg PO DAILY COUNT INCLUDES THE [facility] Last Admin: 03/06/21 09:11 Dose: 75 mg Documented by: Sodium Chloride (Normal Saline 0.9%) 1,000 mls @ 100 mls/hr IV .Q10H CAROLYN Stop: 03/06/21 17:59 Last Admin: 03/06/21 07:54 Dose: 100 mls/hr Documented by: Ceftriaxone Sodium 2 gm/ (Sodium Chloride) 100 mls @ 200 mls/hr IV DAILY COUNT INCLUDES THE [facility] Last Infusion: 03/06/21 09:45 Dose: Infused Documented by: Multi-Ingredient Ointment (Zinc Oxide 20% Oint 30 Gm Tube) 1 applic TOP PRN PRN PRN Reason: Skin Care Sertraline HCl (Sertraline 25 Mg Tablet) 25 mg PO DAILY COUNT INCLUDES THE [facility] Last Admin: 03/06/21 09:11 Dose: 25 mg Documented by: Sodium Chloride (Sodium Chloride Flush 0.9% 10 Ml Syringe) 10 ml IVP PRN PRN PRN Reason: NEEDED PER PROVIDER ORDERS Last Admin: 03/05/21 22:01 Dose: 10 ml Documented by: Sodium Chloride (Sodium Chloride Flush 0.9% 10 Ml Syringe) 10 ml IVP 0100,0900,1700 COUNT INCLUDES THE [facility] Last Admin: 03/06/21 09:11 Dose: 10 ml Documented by: Atorvastatin [Lipitor] 1 tablet ORAL DAILY 03/05/21 Clopidogrel [Plavix] 1 tablet ORAL DAILY 03/05/21 Lisinopril [Zestril] 10 mg PO DAILY 03/05/21 Sertraline [Zoloft] 1 tab ORAL DAILY 03/05/21 amLODIPine [Norvasc] 1 tab ORAL DAILY 03/05/21
[2021-03-06] MEDS ORDERED: ATORVASTATIN 10 MG TABLET PO SCH (21:00)
[2021-03-07] MEDS: SODIUM CHLORIDE FLUSH 0.9% 10 ML SYRINGE IVP SCH ×2 (00:24→08:30)
[2021-03-07 06:33] LABS: BASOPHILS % (AUTO) 0.4 %; EOSINOPHILS # (AUTO) 0.1 10^3/uL (0.0-0.7); EOSINOPHILS % (AUTO) 0.8 %; HCT - HEMATOCRIT 38.4 % (42.0-52.0); HGB - HEMOGLOBIN 12.8 g/dL (14.0-18.0); LYMPHOCYTES # (AUTO) 1.1 10^3/uL (1.5-3.5); LYMPHOCYTES % (AUTO) 13.5 %; MEAN CORPUSCULAR HEMOGLOBIN 31.5 pg (27.0-31.0); MEAN CORPUSCULAR HGB CONC 33.3 g/dL (32.0-36.0); MEAN CORPUSCULAR VOLUME 94.6 fL (80.0-94.0); MEAN PLATELET VOLUME 10.8 fL (7.4-11.4); MONOCYTES # (AUTO) 0.6 10^3/uL (0.0-1.0); MONOCYTES % (AUTO) 7.6 %; NEUTROPHILS # (AUTO) 6.5 10^3/uL (1.5-6.6); NEUTROPHILS % (AUTO) 77.3 %; PLT - PLATELET COUNT 149 10^3/uL (130-450); RED BLOOD COUNT 4.06 10^6/uL (4.70-6.10); RED CELL DISTRIBUTION WIDTH 13.2 % (12.0-15.0); WHITE BLOOD COUNT 8.4 x10^3/uL (4.8-10.8)
[2021-03-07 06:42] LABS: CALCIUM 8.5 mg/dL (8.5-10.3); POTASSIUM 3.7 mmol/L (3.5-5.0)
[2021-03-07] MEDS: SERTRALINE 25 MG TABLET PO SCH (08:30)
[2021-03-07] MEDS: CLOPIDOGREL 75 MG TABLET PO SCH (08:30)
[2021-03-07] MEDS: cefTRIAXone 2 GM in SODIUM CHLORIDE 0.9% MINIBAG 100 ML IV SCH (08:30)
--- NOTE | 2021-03-07 08:51 | PROVIDER PROGRESS NOTE ---
Assessment/Plan - Current Meds Current Meds: Current Medications Generic Name Dose Route Start Last Admin Trade Name Freq PRN Reason Stop Dose Admin Acetaminophen 650 mg 03/05/21 21:19 03/06/21 00:00 Acetaminophen 325 Mg Tablet PO 650 mg Q4HR PRN Administration Pain or Fever > 38C (100.4F) Atorvastatin Calcium 20 mg 03/06/21 21:00 03/06/21 21:00 Atorvastatin 10 Mg Tablet PO 20 mg QPM CAROLYN Administration Clopidogrel Bisulfate 75 mg 03/06/21 09:00 03/07/21 08:30 Clopidogrel 75 Mg Tablet PO 75 mg DAILY CAROLYN Administration Ceftriaxone Sodium 2 gm/ 100 mls @ 200 mls/hr 03/06/21 09:30 03/07/21 08:30 Sodium Chloride IV 200 mls/hr DAILY CAROLYN Administration Sertraline HCl 25 mg 03/06/21 09:00 03/07/21 08:30 Sertraline 25 Mg Tablet PO 25 mg DAILY CAROLYN Administration Sodium Chloride 10 ml 03/05/21 21:19 03/05/21 22:01 Sodium Chloride Flush 0.9% 10 Ml Syringe IVP 10 ml PRN PRN Administration NEEDED PER PROVIDER ORDERS Sodium Chloride 10 ml 03/06/21 01:00 03/07/21 08:30 Sodium Chloride Flush 0.9% 10 Ml Syringe IVP 10 ml 0100,0900,1700 CAROLYN Administration - Lab Result Fish Bone Diagrams: 03/07/21 06:22 03/07/21 06:22 Objective Vital Signs: Vital Signs - 24 hr 03/06/21 03/06/21 03/06/21 11:50 12:54 16:26 Temperature 36.9 C 37.2 C Heart Rate [ 75 70 Brachial] Heart Rate [ 66 Sitting] Respiratory 20 18 Rate Blood Pressure 124/69 136/70 H [Right Brachial artery] Blood Pressure 124/69 [Sitting] O2 Saturation 97 95 03/06/21 03/06/21 03/07/21 21:00 23:52 04:25 Temperature 37.6 C 37.1 C 36.8 C Heart Rate [ 66 66 83 Brachial] Heart Rate [ Sitting] Respiratory 18 20 20 Rate Blood Pressure 123/62 146/68 H 112/71 [Right Brachial artery] Blood Pressure [Sitting] O2 Saturation 97 98 97 03/07/21 07:37 Temperature 37.0 C Heart Rate [ 74 Brachial] Heart Rate [ Sitting] Respiratory 18 Rate Blood Pressure 143/66 H [Right Brachial artery] Blood Pressure [Sitting] O2 Saturation 97 Oxygen O2 Source Room air I&O (Last 24 Hrs): Intake and Output Totals x24h 03/05/21 03/06/21 03/07/21 23:59 23:59 23:59 Intake Total 1000 3498.333 Output Total 825 450 Balance 1000 2673.333 -450 - Results Results: Laboratory Results WBC 8.4 x10^3/uL (4.8-10.8) 03/07/21 06:22 RBC 4.06 10^6/uL (4.70-6.10) L 03/07/21 06:22 Hgb 12.8 g/dL (14.0-18.0) L 03/07/21 06:22 Hct 38.4 % (42.0-52.0) L 03/07/21 06:22 MCV 94.6 fL (80.0-94.0) H 03/07/21 06:22 MCH 31.5 pg (27.0-31.0) H 03/07/21 06:22 MCHC 33.3 g/dL (32.0-36.0) 03/07/21 06:22 RDW 13.2 % (12.0-15.0) 03/07/21 06:22 Plt Count 149 10^3/uL (130-450) 03/07/21 06:22 MPV 10.8 fL (7.4-11.4) 03/07/21 06:22 Neut # (Auto) 6.5 10^3/uL (1.5-6.6) 03/07/21 06:22 Lymph # (Auto) 1.1 10^3/uL (1.5-3.5) L 03/07/21 06:22 Levy # (Auto) 0.6 10^3/uL (0.0-1.0) 03/07/21 06:22 Eos # (Auto) 0.1 10^3/uL (0.0-0.7) 03/07/21 06:22 Baso # (Auto) 0.0 10^3/uL (0.0-0.1) 03/07/21 06:22 Absolute Nucleated RBC 0.00 x10^3/uL 03/07/21 06:22 Nucleated RBC % 0.0 /100WBC 03/07/21 06:22 Manual Slide Review Indicated 03/05/21 18:36 Platelet Estimate NORMAL (130-450,000) (NORMAL) 03/05/21 18:36 Platelet Morphology NORMAL APPEARANCE (NORMAL) 03/05/21 18:36 RBC Morph Micro Appear NORMAL APPEARANCE (NORMAL) 03/05/21 18:36 PT 12.8 secs (9.9-12.6) H 03/05/21 18:36 INR 1.2 (0.8-1.2) 03/05/21 18:36 APTT 26.2 secs (24.9-33.3) 03/05/21 18:36 Sodium 138 mmol/L (135-145) 03/07/21 06:22 Potassium 3.7 mmol/L (3.5-5.0) 03/07/21 06:22 Chloride 107 mmol/L (101-111) 03/07/21 06:22 Carbon Dioxide 21 mmol/L (21-32) 03/07/21 06:22 Anion Gap 10.0 (6-13) 03/07/21 06:22 BUN 18 mg/dL (6-20) 03/07/21 06:22 Creatinine 1.0 mg/dL (0.6-1.2) 03/07/21 06:22 Estimated GFR (MDRD) 73 (>89) L 03/07/21 06:22 Glucose 100 mg/dL (70-100) 03/07/21 06:22 Lactic Acid 1.3 mmol/L (0.5-2.2) 03/05/21 22:23 Calcium 8.5 mg/dL (8.5-10.3) 03/07/21 06:22 Total Bilirubin 0.7 mg/dL (0.2-1.0) 03/06/21 05:33 AST 261 IU/L (10-42) H 03/06/21 05:33 ALT 35 IU/L (10-60) 03/06/21 05:33 Alkaline Phosphatase 31 IU/L (42-121) L 03/06/21 05:33 Total Protein 5.7 g/dL (6.7-8.2) L 03/06/21 05:33 Albumin 3.4 g/dL (3.2-5.5) 03/06/21 05:33 Globulin 2.3 g/dL (2.1-4.2) 03/06/21 05:33 Albumin/Globulin Ratio 1.5 (1.0-2.2) 03/06/21 05:33 Lipase 29 U/L (22-51) 03/05/21 18:36 Urine Color BROWN 03/05/21 18:55 Urine Clarity HAZY (CLEAR) 03/05/21 18:55 Urine pH 5.0 PH (5.0-7.5) 03/05/21 18:55 Ur Specific [place] 1.025 (1.002-1.030) 03/05/21 18:55 Urine Protein TRACE mg/dL (NEGATIVE) 03/05/21 18:55 Urine Glucose (UA) NEGATIVE mg/dL (NEGATIVE) 03/05/21 18:55 Urine Ketones NEGATIVE mg/dL (NEGATIVE) 03/05/21 18:55 Urine Occult Blood LARGE (NEGATIVE) H 03/05/21 18:55 Urine Nitrite POSITIVE (NEGATIVE) H 03/05/21 18:55 Urine Bilirubin NEGATIVE (NEGATIVE) 03/05/21 18:55 Urine Urobilinogen 0.2 (NORMAL) E.U./dL (NORMAL) 03/05/21 18:55 Ur Leukocyte Esterase TRACE (NEGATIVE) H 03/05/21 18:55 Urine RBC 6-10 /HPF (0-5) H 03/05/21 18:55 Urine WBC 6-10 /HPF (0-3) H 03/05/21 18:55 Ur Squamous Epith Cells RARE Squamous (<= Few) 03/05/21 18:55 Urine Bacteria Few /HPF (None Seen) 03/05/21 18:55 Ur Microscopic Review INDICATED 03/05/21 18:55 Urine Culture Comments INDICATED 03/05/21 18:55 Nasal Adenovirus (PCR) NOT DETECTED 03/05/21 18:55 Nasal B. parapertussis DNA (PCR) NOT DETECTED 03/05/21 18:55 Nasal Coronavir 229E PCR NOT DETECTED 03/05/21 18:55 Nasal Coronavir HKU1 PCR NOT DETECTED 03/05/21 18:55 Nasal Coronavir NL63 PCR NOT DETECTED 03/05/21 18:55 Nasal Coronavir OC43 PCR NOT DETECTED 03/05/21 18:55 Nasal Enterovir/Rhinovir PCR NOT DETECTED 03/05/21 18:55 Nasal Influenza B PCR NOT DETECTED 03/05/21 18:55 Nasal Influenza A PCR NOT DETECTED 03/05/21 18:55 Nasal Parainfluen 1 PCR NOT DETECTED 03/05/21 18:55 Nasal Parainfluen 2 PCR NOT DETECTED 03/05/21 18:55 Nasal Parainfluen 3 PCR NOT DETECTED 03/05/21 18:55 Nasal Parainfluen 4 PCR NOT DETECTED 03/05/21 18:55 Nasal RSV (PCR) NOT DETECTED 03/05/21 18:55 Nasal B.pertussis DNA PCR NOT DETECTED 03/05/21 18:55 Nasal C.pneumoniae (PCR) NOT DETECTED 03/05/21 18:55 Glen Human Metapneumo PCR NOT DETECTED 03/05/21 18:55 Nasal M.pneumoniae (PCR) NOT DETECTED 03/05/21 18:55 Nasal SARS-CoV-2 (PCR) NOT DETECTED 03/05/21 18:55 Sepsis Event Note (H) - Sepsis Criteria Sepsis Criteria: Recorded Temperature greater than 38.3C or Less than 36C, Recorded Heart Rate greater than 90 bpm, WBC count greater than 12,000 or less than 4000, 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
--- NOTE | 2021-03-07 12:40 | DISCHARGE SUMMARY ---
Discharge Summary Admit Date: 03/05/21 Discharge Date: 03/08/21 Discharging Provider: Ozzy Delong Primary Care Provider: Martínez Sauceda Condition at Discharge: Stable Discharge Disposition: 01 Home, Self Care - DIAGNOSES Admission Diagnoses: Sepsis Pyelonephritis Bladder stones MARIS Altered mental status Hypokalemia Hx of CVA with residual deficit History of essential hypertension Depression Discharge Diagnoses with Status of Each Condition: Sepsis: Acute. 2/2 Pyelonephritis. Improved/Resolved. Cipro 500mg po bid X 7 days Pyelonephritis: Acute. Improved/Resolved. Cipro 500mg po bid X 7 days Bladder stones: Resolved MARIS: Resolved. Kikely 2/2 pyelonephritis Altered mental status: Acute. Likely 2/2 Sepsis. Resolved Hypokalemia: Acute. Resolved Hx of CVA with residual deficit: Chronic. Continue home medications History of essential hypertension: Chronic. Stable. Continue home medications Depression: Chronic. Continue home medications - HPI History of Present Illness: This is a 75 year old white male with history of stroke about 10 years ago with unknown amount of residual deficit, and he lives with his son. He also has HTN and depression. Today the son found the patient down on the floor in the house and called 911. The paramedics found him to be confused, incontinent of urine but with stable vital signs. In the ED, he had a fever of 39 degrees C, elevated WBC of 18, Lactic Acid level of 2.1, and was still confused. His U/A showed large blood, (+) nitrites, high WBCs and bacteria present. His BUN/creat are elevated at 38/1.6 and there are no prior labs done here for comparison. The patient underwent a head CT, C-spine imaging and abdomen CT. These showed brain encephalomalacia consistent with old strokes, no acute stroke or hemorrhage, no trauma, and stones visible in the urinary bladder, an atrophied R kidney, perinephric stranding, but no hydronephrosis. He received iv Ceftiaxone and was started on iv fluids in the ED. He was presented to the Hospitalist team for admission for treatment of altered mental status, fever and complicated UTI. - HOSPITAL COURSE Hospital Course: Patient was started on Rocephin 1 g IV daily and IV hydration with normal saline at the time of admission. His white blood cell count which was 18.4 at time of admission steadily decreased down to 8.4 at the time of discharge. Creatinine was initially 1.6 with an estimated GFR of 43. By discharge creatinine was 1.0 with an estimated GFR of 73. By the time of discharge blood cultures with no growth to date. Urine cultures were still pending. Patient was discharged with a prescription of Cipro 500 mg p.o. twice daily x7 days CT of head and cervical spine were unremarkable for any acute processes. Chest x-ray showed no acute cardiopulmonary disease. Patient was discharged in stable condition after 3 days of hospital stay. - ALLERGIES Allergies/Adverse Reactions: Allergies Allergy/AdvReac Type Severity Reaction Status Date / Time No Known Drug Allergies Allergy Verified 03/05/21 18:38 - MEDICATIONS Home Medications: Ambulatory Orders Medication Instructions Recorded Confirmed Atorvastatin [Lipitor] 1 tablet ORAL DAILY 03/05/21 03/05/21 Clopidogrel [Plavix] 1 tablet ORAL DAILY 03/05/21 03/05/21 Lisinopril [Zestril] 10 mg PO DAILY 03/05/21 03/05/21 Sertraline [Zoloft] 1 tab ORAL DAILY 03/05/21 03/05/21 amLODIPine [Norvasc] 1 tab ORAL DAILY 03/05/21 03/05/21 Ciprofloxacin HCl [Cipro] 500 mg PO BID 7 Days #14 tablet 03/07/21 - PHYSICAL EXAM AT DISCHARGE General Appearance: positive: No acute distress, Alert Eyes Bilateral: positive: PERRL, EOMI ENT: positive: No signs of dehydration Neck: positive: No JVD, Trachea midline Respiratory: positive: Chest non-tender, No respiratory distress, Breath sounds nml. negative: Wheezes, Rales, Rhonchi Cardiovascular: positive: Regular rate & rhythm, No murmur Abdomen: positive: Non-tender, No organomegaly, Nml bowel sounds, No distention. 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
--- NOTE | 2021-03-07 12:44 | Discharge Plan ---
Discharge Plan Problem Reviewed?: Yes Disposition: Home, Self Care Condition: Stable Prescriptions: Ciprofloxacin HCl [Cipro] 500 mg PO BID 7 Days #14 tablet Diet: Cardiac Activity Restrictions: Activity as Tolerated Health Concerns: You presented to the emergency department via EMS on 03/05/2021 with altered mental status and a fever for which further work-up showed you had a urinary tract infection. You were admitted to the hospital and placed on antibiotics which included Rocephin. Over the cause of your 3-day hospital stay you steadily improved. By the day of discharge your white blood cell count was normal. You did not have a fever and your vitals are stable. Blood and urine cultures are no growth to date. Upon discharge you are being placed on Cipro 500mg po twice daily for 7 days You are being discharged in stable condition. You may follow-up with your primary care physician in 7 to 10 days or as needed. The above was explained to you you expressed understanding and are in agreement. No Smoking: If you smoke, Please STOP! Call for help. Follow-up with: NILSON AVILA DO [Primary Care Provider] -
[2021-03-07 17:03] VITALS: BP 148/70
== END 2021-03-07 17:25 | disposition home or self-care (01) | DRG 872 ==
LOC: ED 18:30 → MS2 21:19
PROVIDERS: ADMIT Internal Medicine; ATTEND Internal Medicine
DX: A41.9 Sepsis, unspecified organism (principal); N10 Acute pyelonephritis; N17.9 Acute kidney failure, unspecified; N21.0 Calculus in bladder; R41.82 Altered mental status, unspecified; E87.6 Hypokalemia; I69.398 Other sequelae of cerebral infarction; G93.89 Other specified disorders of brain; I10 Essential (primary) hypertension; F32.9 Major depressive disorder, single episode, unspecified; Z87.891 Personal history of nicotine dependence; Z79.899 Other long term (current) drug therapy; Z91.81 History of falling; Z79.01 Long term (current) use of anticoagulants; E78.00 Pure hypercholesterolemia, unspecified; R25.1 Tremor, unspecified; Z66 Do not resuscitate; Z20.822 Contact with and (suspected) exposure to COVID-19
CPT/HCPCS: 0202U; 36415; 70450; 71045; 72125; 74176; 80048; 80053; 81001; 83605; 83690; 85025; 85610; 85730; 87040; 87086; 93005; 96361; 96374; 97161; 97530; 99283; 99285; A9270; 81003

== ENCOUNTER 2021-09-28 16:01 | Outpatient (CLI) | payer OTHER | END 2021-09-28 16:02 | disposition critical access hospital (66) | LOC: EMS 16:01 | DX: R53.1 Weakness (principal); R26.81 Unsteadiness on feet; R05.9 Cough, unspecified; R29.6 Repeated falls; Z79.02 Long term (current) use of antithrombotics/antiplatelets | CPT/HCPCS: A0425; A0427 ==

== ENCOUNTER 2021-09-28 16:35 | Emergency (ER) | payer OTHER ==
[2021-09-28] MEDS ORDERED: SODIUM CHLORIDE 0.9% 1,000 ML IV STA (16:56)
--- NOTE | 2021-09-28 16:57 | ED Physician Documentation ---
History of Present Illness - Stated complaint Stated Complaint: INCREASED FALLS - Chief complaint Chief Complaint: General - History obtained from History obtained from: Patient, EMS - Additonal information Additional information: 76-year-old gentleman who goes by "[facility]ide" comes in by ambulance with a report of increased falls over the last day or so associate with 2 days of cough and foul- smelling urine. Patient is reportedly confused at baseline but a little more confused than normal. No family accompanies him on initial evaluation. Review of Systems Unable to obtain: Confused PD PAST MEDICAL HISTORY - Past Medical History Cardiovascular: Hypertension, High cholesterol Respiratory: None Neuro: CVA Endocrine/Autoimmune: None GI: None : Other (Unknown) Psych: Depression - Present Medications Home Medications: Ambulatory Orders Medication Instructions Recorded Confirmed Atorvastatin [Lipitor] 1 tablet ORAL DAILY 03/05/21 03/05/21 Clopidogrel [Plavix] 1 tablet ORAL DAILY 03/05/21 03/05/21 Lisinopril [Zestril] 10 mg PO DAILY 03/05/21 03/05/21 Sertraline [Zoloft] 1 tab ORAL DAILY 03/05/21 03/05/21 amLODIPine [Norvasc] 1 tab ORAL DAILY 03/05/21 03/05/21 Ciprofloxacin HCl [Cipro] 500 mg PO BID 7 Days #14 tablet 03/07/21 - Allergies Allergies/Adverse Reactions: Allergies Allergy/AdvReac Type Severity Reaction Status Date / Time No Known Drug Allergies Allergy Verified 09/28/21 16:41 - Social History Smoking Status: Former smoker Does the pt have substance abuse?: No PD ED PE NORMAL - Vitals Vital signs reviewed: Yes - General General: No acute distress, Other (He is oriented to person and place, knows the month and the year but not the date but seems confused as to short-term events and the purpose of his visit.) - HEENT HEENT: PERRL, EOMI - Neck Neck: Supple, no meningeal sign, No bony TTP - Cardiac Cardiac: RRR, No murmur - Respiratory Respiratory: No respiratory distress, Clear bilaterally - Abdomen Abdomen: Other (Mild suprapubic tenderness without surgical signs) - Back Back: No CVA TTP, No spinal TTP - Derm Derm: Normal color, Warm and dry - Neuro Neuro: Normal speech Eye Opening: Spontaneous Motor: Obeys Commands Results - Vitals Vitals: Vital Signs - 24 hr 06/13/22 06/13/22 16:41 16:47 Temperature 37.2 C Heart Rate 76 76 Respiratory 16 16 Rate Blood Pressure 145/80 H 145/81 H O2 Saturation 98 97 Oxygen O2 Source Room air - Labs Labs: Laboratory Tests 09/28/21 09/28/21 09/28/21 17:00 17:00 17:35 WBC 6.7 RBC 4.53 L Hgb 14.0 Hct 43.9 MCV 96.9 H MCH 30.9 MCHC 31.9 L RDW 13.2 Plt Count TNP MPV 11.2 Neut # (Auto) 5.2 Lymph # (Auto) 0.7 L [place] # (Auto) 0.8 Eos # (Auto) 0.0 Baso # (Auto) 0.0 Absolute Nucleated RBC 0.00 Nucleated RBC % 0.0 Platelet Estimate NORMAL (130-450,000) Platelet Morphology PLATELET CLUMPING Sodium 138 Potassium 3.9 Chloride 101 Carbon Dioxide 25 Anion Gap 12.0 BUN 27 H Creatinine 1.4 H Estimated GFR (MDRD) 50 L Glucose 109 H Calcium 8.9 Urine Color YELLOW Urine Clarity CLEAR Urine pH 5.5 Ur Specific [place] 1.020 Urine Protein NEGATIVE Urine Glucose (UA) NEGATIVE Urine Ketones NEGATIVE Urine Occult Blood SMALL H Urine Nitrite NEGATIVE Urine Bilirubin NEGATIVE Urine Urobilinogen 0.2 (NORMAL) Ur Leukocyte Esterase NEGATIVE Urine RBC 0-5 Urine WBC 0-3 Ur Squamous Epith Cells RARE Squamous Urine Bacteria None Seen Ur Microscopic Review INDICATED Urine Culture Comments NOT INDICATED - Rads (name of study) Single view chest x-ray is unremarkable Radiology: EMP read contemporaneously PD MEDICAL DECISION MAKING - ED course ED course: 76-year-old gentleman presents by ambulance for worsening of dementia albeit not terribly so. Family worried about UTI but no evidence of UTI nor pneumonia given his ongoing cough. He was hydrated here noticing some prerenal azotemia and I spoke with the son at 620 by phone and he will come pick him up. Departure - Departure Disposition: 01 Home, Self Care Clinical Impression: Altered mental status, History of CVA with residual deficit, Dehydration Condition: Good Record reviewed to determine appropriate education?: Yes Instructions: ED Dehydration Comments: There is no evidence of UTI nor pneumonia. He was a little dehydrated which can cause folks with dementia to be a little worse than there to make baseline with regard to mental status. Drink plenty of fluids. Return for new or worsening symptoms. Follow-up with your primary care physician, next available appointment.
[2021-09-28 17:16] LABS: BASOPHILS % (AUTO) 0.2 %; CALCIUM 8.9 mg/dL (8.5-10.3); CREATININE 1.4 mg/dL (0.6-1.2); EOSINOPHILS % (AUTO) 0.2 %; HCT - HEMATOCRIT 43.9 % (42.0-52.0); LYMPHOCYTES # (AUTO) 0.7 10^3/uL (1.5-3.5); LYMPHOCYTES % (AUTO) 10.1 %; MEAN CORPUSCULAR HEMOGLOBIN 30.9 pg (27.0-31.0); MEAN CORPUSCULAR HGB CONC 31.9 g/dL (32.0-36.0); MEAN CORPUSCULAR VOLUME 96.9 fL (80.0-94.0); MEAN PLATELET VOLUME 11.2 fL (7.4-11.4); MONOCYTES # (AUTO) 0.8 10^3/uL (0.0-1.0); MONOCYTES % (AUTO) 11.3 %; NEUTROPHILS # (AUTO) 5.2 10^3/uL (1.5-6.6); NEUTROPHILS % (AUTO) 77.9 %; POTASSIUM 3.9 mmol/L (3.5-5.0); RED BLOOD COUNT 4.53 10^6/uL (4.70-6.10); RED CELL DISTRIBUTION WIDTH 13.2 % (12.0-15.0); WHITE BLOOD COUNT 6.7 x10^3/uL (4.8-10.8)
--- NOTE | 2021-09-28 17:18 | XRAY Report ---
PROCEDURE: Chest 1 View X-Ray INDICATIONS: Cough TECHNIQUE: One view of the chest was acquired. COMPARISON: 03/05/2021 FINDINGS: Surgical changes and devices: None. Lungs and pleura: No pleural effusions or pneumothorax. Lungs are clear. Mediastinum: Mediastinal contours appear normal. Heart size is normal. Bones and chest wall: No suspicious bony lesions. Overlying soft tissues appear unremarkable. IMPRESSION: No acute cardiopulmonary process demonstrated radiographically. Reviewed by: Dionisio Hurley MD on 09/28/2021 5:16 PM PDT Approved by: Dionisio Hurley MD on 09/28/2021 5:16 PM PDT Station ID: [id number]
[2021-09-28 17:39] LABS: PLATELET ESTIMATE, MANUAL NORMAL (130-450,000) (NORMAL); PLATELET MORPHOLOGY PLATELET CLUMPING (NORMAL)
[2021-09-28 17:47] LABS: BILIRUBIN,URINE NEGATIVE (NEGATIVE); GLUCOSE, URINE (UA) NEGATIVE (NEGATIVE); KETONES,URINE (UA) NEGATIVE (NEGATIVE); LEUKOCYTE ESTERASE, URINE NEGATIVE (NEGATIVE); NITRITE,URINE NEGATIVE (NEGATIVE); OCCULT BLOOD,URINE SMALL (NEGATIVE); PH,URINE 5.5 PH (5.0-7.5); PROTEIN,URINE NEGATIVE (NEGATIVE); UROBILINOGEN,URINE 0.2 (NORMAL) E.U./dL (NORMAL)
[2021-09-28 18:00] LABS: CLARITY,URINE CLEAR (CLEAR)
[2021-09-28 18:01] LABS: BACTERIA,URINE None Seen /HPF (None Seen); RBC,URINE 0-5 /HPF (0-5); SQUAMOUS EPITHELIAL CELL,UR RARE Squamous (<= Few); WBC,URINE 0-3 /HPF (0-3)
[2021-09-28 19:15] VITALS: BP 144/72
== END 2021-09-28 19:29 | disposition home or self-care (01) ==
LOC: ED 16:35
DX: I10 Essential (primary) hypertension (principal); R41.82 Altered mental status, unspecified; F03.90 Unspecified dementia, unspecified severity, without behavioral disturbance, psychotic disturbance, mood disturbance, and anxiety; E86.0 Dehydration; Z87.891 Personal history of nicotine dependence; Z86.73 Personal history of transient ischemic attack (TIA), and cerebral infarction without residual deficits
CPT/HCPCS: 36415; 80048; 81001; 81003; 85025; 87086; 96360; 96361; 99281

== ENCOUNTER 2022-01-13 14:21 | Outpatient (CLI) | payer OTHER | END 2022-01-13 14:22 | disposition short-term general hospital (02) | LOC: EMS 14:21 | DX: M25.552 Pain in left hip (principal); W01.0XXA Fall on same level from slipping, tripping and stumbling without subsequent striking against object, initial encounter; Y93.E1 Activity, personal bathing and showering; Y92.002 Bathroom of unspecified non-institutional (private) residence as the place of occurrence of the external cause | CPT/HCPCS: A0425; A0427 ==

== ENCOUNTER 2022-03-24 12:28 | Outpatient (CLI) | payer OTHER | END 2022-03-24 23:59 | disposition EMS.NT | LOC: EMS 12:28 | DX: Z03.89 Encounter for observation for other suspected diseases and conditions ruled out (principal) ==

== ENCOUNTER 2022-04-16 12:22 | Outpatient (CLI) | payer OTHER ==
[2022-04-16 12:33] LABS: BILIRUBIN,URINE NEGATIVE (NEGATIVE); GLUCOSE, URINE (UA) NEGATIVE (NEGATIVE); KETONES,URINE (UA) NEGATIVE (NEGATIVE); LEUKOCYTE ESTERASE, URINE NEGATIVE (NEGATIVE); NITRITE,URINE NEGATIVE (NEGATIVE); OCCULT BLOOD,URINE NEGATIVE (NEGATIVE); PROTEIN,URINE NEGATIVE (NEGATIVE); UROBILINOGEN,URINE 0.2 (NORMAL) E.U./dL (NORMAL)
[2022-04-16 12:56] LABS: BACTERIA,URINE Rare /HPF (None Seen); CLARITY,URINE CLEAR (CLEAR); RBC,URINE None Seen /HPF (0-5); SQUAMOUS EPITHELIAL CELL,UR FEW Squamous (<= Few); WBC,URINE 0-3 /HPF (0-3)
== END 2022-04-16 12:23 | disposition home or self-care (01) ==
LOC: LAB.R 12:22
PROVIDERS: ATTEND Family Medicine
DX: N39.0 Urinary tract infection, site not specified (principal)
CPT/HCPCS: 81001

== ENCOUNTER 2022-04-26 11:16 | Outpatient (CLI) | payer OTHER ==
--- NOTE | 2022-05-02 11:29 | PHARMACY PROGRESS NOTE ---
- Best Possible Medication History Admit Date and Time: Processed by: Pharmacy Medication History completed: Yes Patient Interview: Completed Secondary Source(s): Other family member (SPOKE TO SON (MADELINE)) As the person ultimately responsible for medication therapy, providers are able to order a medication from an existing home medication list in [facility] via the "Reconcile Routine" prior to Confirmation of that medication by lab support service tech. S uch practice is discouraged except when the physician, in their clinical judgment, deems that a medical need exists for a medication without regard to previous use.
== END 2022-04-26 11:17 | disposition critical access hospital (66) ==
LOC: EMS 11:16
DX: R53.1 Weakness (principal); R41.0 Disorientation, unspecified; R39.89 Other symptoms and signs involving the genitourinary system
CPT/HCPCS: A0425; A0429

== ENCOUNTER 2022-04-26 11:50 | Emergency (ER) | payer OTHER ==
--- NOTE | 2022-04-26 12:13 | ED Physician Documentation ---
History of Present Illness - Stated complaint Stated Complaint: GLF - Chief complaint Chief Complaint: General - Additonal information Additional information: History is obtained through chart review as well as EMS. Patient has dementia and is a poor historian. 77-year-old male brought into the emergency department for concerns of increasing weakness and as well as increasing frequency of falls. He is anticoagulated. Patient's son, per EMS, is concerned that he may have a urinary tract infection as he reports foul-smelling urine. The patient appears to have been incontinent of urine. Patient states that he feels okay though he thinks he is fallen 3 or 4 times over the last few days. I asked him if he thinks he is confused and he says "of course I am." Review of Systems Unable to obtain: Confused, Dementia, Other (per EMS) PD PAST MEDICAL HISTORY - Past Medical History Cardiovascular: Hypertension, High cholesterol Respiratory: None Neuro: CVA Endocrine/Autoimmune: None GI: None : Other (Unknown) Psych: Depression - Past Surgical History Past Surgical History: Yes - Present Medications Home Medications: Ambulatory Orders Medication Instructions Recorded Confirmed Atorvastatin [Lipitor] 1 tablet ORAL DAILY 03/05/21 03/05/21 Clopidogrel [Plavix] 1 tablet ORAL DAILY 03/05/21 03/05/21 Lisinopril [Zestril] 10 mg PO DAILY 03/05/21 03/05/21 Sertraline [Zoloft] 1 tab ORAL DAILY 03/05/21 03/05/21 amLODIPine [Norvasc] 1 tab ORAL DAILY 03/05/21 03/05/21 Ciprofloxacin HCl [Cipro] 500 mg PO BID 7 Days #14 tablet 03/07/21 - Allergies Allergies/Adverse Reactions: Allergies Allergy/AdvReac Type Severity Reaction Status Date / Time No Known Drug Allergies Allergy Verified 04/26/22 11:56 - Social History Does the pt smoke?: No Smoking Status: Former smoker Does the pt have substance abuse?: No PD ED PE EXPANDED - General General: Alert, No acute distress, Other (No signs of traumatic injury, bruising bleeding or ecchymosis noted) - Cardiac Cardiac: Regular Rate, Radial strong equal, Pedal strong equal, Cap refill < 2 sec, Other (Bilateral lower extremity pedal edema) - Respiratory Respiratory: Clear to ausultation theron. No: Distress, Labored - Abdomen Abdomen: Normal Bowel sounds. No: Tender to palpation - Back Back: Other (No pain noted with active or passive range of motion of bilateral lower extremities. No tenderness in the hips). No: Vertebral tenderness (No tenderness elicited with palpation of the cervical thoracic or lower lumbar spine. No step-off crepitus or deformity) - Derm Derm: Normal color, Warm and dry. No: Bruising (No bruising signs of traumatic ecchymosis or injury noted) - Extremities Extremities: Pedal edema bilateral - Neuro Neuro: Confused, CNII-XII intact - GCS Eye Opening: Spontaneous Motor: Obeys Commands Verbal: Confused Total: 14 Results - Vitals Vitals: Vital Signs - 24 hr 04/26/22 04/26/22 04/26/22 11:56 12:00 14:00 Temperature 36.3 C L 36.5 C Heart Rate 61 61 76 Respiratory 18 18 16 Rate Blood Pressure 169/80 H 169/80 H 160/100 H O2 Saturation 99 99 100 04/26/22 04/26/22 04/26/22 16:00 18:00 20:00 Temperature Heart Rate 94 66 80 Respiratory 18 16 16 Rate Blood Pressure 148/80 H 173/87 H 160/80 H O2 Saturation 100 99 97 Oxygen O2 Source Room air - Labs Labs: Laboratory Tests 04/26/22 04/26/22 04/26/22 12:20 12:20 12:38 WBC 5.2 RBC 4.66 L Hgb 13.7 L Hct 43.0 MCV 92.3 MCH 29.4 MCHC 31.9 L RDW 14.1 Plt Count 217 MPV 10.1 Neut # (Auto) 3.6 Lymph # (Auto) 1.1 L [place] # (Auto) 0.4 Eos # (Auto) 0.1 Baso # (Auto) 0.0 Absolute Nucleated RBC 0.00 Nucleated RBC % 0.0 Sodium 141 Potassium 3.7 Chloride 105 Carbon Dioxide 25 Anion Gap 11.0 BUN 19 Creatinine 1.0 Estimated GFR (MDRD) 73 L Glucose 108 H Calcium 9.1 Total Bilirubin 0.9 AST 21 ALT 12 Alkaline Phosphatase 58 Total Protein 7.2 Albumin 4.1 Globulin 3.1 Albumin/Globulin Ratio 1.3 Lipase 25 Urine Color YELLOW Urine Clarity CLEAR Urine pH 6.0 Ur Specific [place] 1.020 Urine Protein NEGATIVE Urine Glucose (UA) NEGATIVE Urine Ketones NEGATIVE Urine Occult Blood NEGATIVE Urine Nitrite NEGATIVE Urine Bilirubin NEGATIVE Urine Urobilinogen 0.2 (NORMAL) Ur Leukocyte Esterase NEGATIVE Ur Microscopic Review NOT INDICATED Urine Culture Comments NOT INDICATED - Rads (name of study) CT head Radiology: Final report received (No CT evidence of acute intracranial abnormalities. Old infarction in left frontal parietal lobe unchanged from previous study. No acute skull fracture) cervical ct Radiology: Final report received (No acute cervical spine fracture or dislocation. Degenerative disc disease throughout the cervical spine unchanged from prior study) PD Medical Decision Making - ED course Complexity details: reviewed results, re-evaluated patient, considered differential, d/w patient, d/w family ED course: This is a well-appearing 77-year-old male who was brought into the emergency department via EMS for evaluation of increased frequency of falls. Per EMS the son had reported he had concerns his father had a urinary tract infection. The patient does have a history of dementia and is a poor historian. Here in the emergency department we did obtain a CT of his head and neck that showed no acute findings though there are findings of old infarct in the left frontoparietal lobe. I did obtain a CBC and electrolytes with no acute worrisome abnormalities noted. Specifically he has normal renal function. No leukocytosis. His urinalysis was without findings of infection. Following the unremarkable labs as well as CT imaging I did have the patient up with a walker in the emergency department he had a steady gait. At this time there is no indication for inpatient admission or observation. I called the patient's son Chino and I spoke with him about the ED visit as well as our laboratory and CT results. I told him that his father was safe at this time to take home but Chino neally refused to pick his father up. He states that he can no longer care for him and it is not safe at his house. When I reiterated that there was no indication for inpatient admission and that he would in fact need to pick his father up and that he would need to work with his pcp to arrange outpatient transfer toa assisted living facility he stated that we were "at an impasse." At this time with no safe disposition I am going to ask for social work to help evaluate. Per social work they have attempted multiple times to reach the family but they have not returned phone calls. Our nursing staff has not been able to contact the family to complete a med reconciliation. Patient will continue to board in the ER until a safe disposition is found Departure - Departure Clinical Impression: Dementia Qualifiers: Dementia type: unspecified type Dementia severity: unspecified severity Dementia behavioral or psychological symptom: without behavioral, psychotic, or mood disturbance or anxiety Qualified Code(s): F03.90 - Unspecified dementia, unspecified severity, without behavioral disturbance, psychotic disturbance, mood disturbance, and anxiety Condition: Stable Instructions: ED Dementia Caregiver Support
[2022-04-26 12:26] LABS: BASOPHILS % (AUTO) 0.6 %; EOSINOPHILS # (AUTO) 0.1 10^3/uL (0.0-0.7); EOSINOPHILS % (AUTO) 1.5 %; HGB - HEMOGLOBIN 13.7 g/dL (14.0-18.0); LYMPHOCYTES # (AUTO) 1.1 10^3/uL (1.5-3.5); LYMPHOCYTES % (AUTO) 20.5 %; MEAN CORPUSCULAR HEMOGLOBIN 29.4 pg (27.0-31.0); MEAN CORPUSCULAR HGB CONC 31.9 g/dL (32.0-36.0); MEAN CORPUSCULAR VOLUME 92.3 fL (80.0-94.0); MEAN PLATELET VOLUME 10.1 fL (7.4-11.4); MONOCYTES # (AUTO) 0.4 10^3/uL (0.0-1.0); MONOCYTES % (AUTO) 8.3 %; NEUTROPHILS # (AUTO) 3.6 10^3/uL (1.5-6.6); NEUTROPHILS % (AUTO) 68.9 %; PLT - PLATELET COUNT 217 10^3/uL (130-450); RED BLOOD COUNT 4.66 10^6/uL (4.70-6.10); RED CELL DISTRIBUTION WIDTH 14.1 % (12.0-15.0); WHITE BLOOD COUNT 5.2 x10^3/uL (4.8-10.8)
[2022-04-26 12:45] LABS: BILIRUBIN,URINE NEGATIVE (NEGATIVE); GLUCOSE, URINE (UA) NEGATIVE (NEGATIVE); KETONES,URINE (UA) NEGATIVE (NEGATIVE); LEUKOCYTE ESTERASE, URINE NEGATIVE (NEGATIVE); NITRITE,URINE NEGATIVE (NEGATIVE); OCCULT BLOOD,URINE NEGATIVE (NEGATIVE); PROTEIN,URINE NEGATIVE (NEGATIVE); UROBILINOGEN,URINE 0.2 (NORMAL) E.U./dL (NORMAL)
[2022-04-26 12:46] LABS: CLARITY,URINE CLEAR (CLEAR)
[2022-04-26 12:47] LABS: ALBUMIN 4.1 g/dL (3.2-5.5); ALBUMIN/GLOBULIN RATIO 1.3 (1.0-2.2); BILIRUBIN,TOTAL 0.9 mg/dL (0.2-1.0); CALCIUM 9.1 mg/dL (8.5-10.3); POTASSIUM 3.7 mmol/L (3.5-5.0); TOTAL PROTEIN 7.2 g/dL (6.7-8.2)
--- NOTE | 2022-04-26 13:11 | CT Report ---
PROCEDURE: HEAD WO INDICATIONS: glf; anticoagulated TECHNIQUE: Noncontrast 4.5 mm thick angled axial sections acquired from the foramen magnum to the vertex. For r adiation dose reduction, the following was used: automated exposure control, adjustment of mA and/or kV according to patient size. COMPARISON: 03/05/2021 FINDINGS: Image quality: Excellent. CSF spaces: Basal cisterns are patent. No extra-axial fluid collections. The ventricles are symmet janneth in size and shape. Brain: Old infarction in left frontal parietal lobe is again seen with encephalomalacia and expected dilatation of left lateral ventricle unchanged from prior study. No intracranial bleeds or masses. There is cerebral volume loss for age, with resultant ventricular and sulcal prominence. There are p eriventricular and deep white matter chronic small vessel ischemic changes. There is intracranial in ternal carotid artery atherosclerosis. Skull and face: Calvarium and visualized facial bones appear intact, without suspicious lesions. Sinuses: Visualized sinuses and mastoids are clear. IMPRESSION: 1. No CT evidence of acute intracranial abnormalities. 2. No significant changes from previous study. Old infarction in left frontoparietal lobe with enceph alomalacia and expected dilatation of left lateral ventricle. 3. No acute skull fracture. Reviewed by: Grzegorz Mckeon MD on 04/26/2022 1:10 PM PST Approved by: Grzegorz Mckeon MD on 04/26/2022 1:10 PM PST Station ID: [id number]
--- NOTE | 2022-04-26 13:13 | CT Report ---
PROCEDURE: CERVICAL SPINE WO INDICATIONS: glf TECHNIQUE: Noncontrast 3 mm thick sections acquired from the skull base to the T4 level. Sagittal and coronal r eformats were then constructed. For radiation dose reduction, the following was used: automated exp osure control, adjustment of mA and/or kV according to patient size. COMPARISON: 03/05/2021. FINDINGS: Image quality: Excellent. Bones: No fractures or dislocations. Loss of disc height, degenerative endplate changes and bilatera l facet hypertrophic changes are noted throughout cervical spine. Dorsal disc osteophyte complex form ation are noted at C3-4 through C6-7 levels causing [id number]-[id number] central canal stenosis and bilat eral neural foraminal narrowing. Visualized superior ribs are intact. Soft tissues: Prevertebral soft tissues are normal in thickness. No paravertebral hematomas. No ap ical pneumothoraces. IMPRESSION: 1. No acute cervical spine fracture or dislocation. 2. Degenerative disc disease throughout cervical spine unchanged from prior study. Reviewed by: Grzegorz Mckeon MD on 04/26/2022 1:11 PM PST Approved by: Grzegorz Mckeon MD on 04/26/2022 1:11 PM PST Station ID: [id number]
[2022-04-26] MEDS ORDERED: ONDANSETRON 4 MG/2 ML VIAL IVP PRN (20:12)
[2022-04-27] MEDS: PANTOPRAZOLE 40 MG TABLET PO SCH (06:39)
[2022-04-27] MEDS: CLOPIDOGREL 75 MG TABLET PO SCH (09:01)
[2022-04-27] MEDS: lisinopriL 5 MG TABLET PO SCH (09:01)
[2022-04-27] MEDS: amLODIPine 5 MG TABLET PO SCH (09:01)
[2022-04-27] MEDS: ATORVASTATIN 40 MG TABLET PO SCH (09:01)
--- NOTE | 2022-04-27 13:31 | ED Physician Documentation ---
ED Addendum - Addendum Addendum: 04/27/22 13:29 I have personally seen and evaluated the patient. In brief this is a 77-year-old male that presented the emergency department yesterday via EMS for frequent falls at home in the setting of dementia. He was reportedly anticoagulated though it appears to be on Plavix. While in the emergency department today he is pleasantly confused and has no behavioral changes. We did obtain CT imaging of the head and neck that was unremarkable. Labs and urinalysis were unremarkable. We have noted that the patient is able to ambulate independently with a walker multiple times. When the patient was ready for discharge yesterday patient's son refused to pick the patient up stating that he felt his father was too much care and did not feel that he was safe to return home thus he continues to board with social work. Please see social work notes they have been in contact with the son and he continues to decline to pick the patient up. I reviewed the patient's vital signs and they are without any acute worrisome abnormalities. I have resumed him on his routine usual medications. He is eating a diet well. At this time he will board until a safe disposition is made.
[2022-04-28] MEDS: PANTOPRAZOLE 40 MG TABLET PO SCH (06:34)
[2022-04-28] MEDS: ATORVASTATIN 40 MG TABLET PO SCH (09:42)
[2022-04-28] MEDS: lisinopriL 5 MG TABLET PO SCH (09:42)
[2022-04-28] MEDS: CLOPIDOGREL 75 MG TABLET PO SCH (09:42)
[2022-04-28] MEDS: amLODIPine 5 MG TABLET PO SCH (09:42)
--- NOTE | 2022-04-28 18:32 | ED Physician Documentation ---
ED Addendum - Addendum Addendum: 04/28/22 18:31 Patient was signed out to me at change of shift after presenting to the emergency department for ground-level fall. He continues to board in the emergency department because his son will not come pick him up and does not think he can care for him at home. The patient has been noted to ambulate in the emergency department with a walker. At this point in time, he has had no acute needs and has been calm and cooperative. Social work is continuing to work with his situation. He will be signed out to the oncoming emergency physician at change of shift.
[2022-04-29] MEDS: amLODIPine 5 MG TABLET PO SCH (08:08)
[2022-04-29] MEDS: PANTOPRAZOLE 40 MG TABLET PO SCH (08:08)
[2022-04-29] MEDS: lisinopriL 5 MG TABLET PO SCH (08:08)
[2022-04-29] MEDS: CLOPIDOGREL 75 MG TABLET PO SCH (08:08)
[2022-04-29] MEDS: ATORVASTATIN 40 MG TABLET PO SCH (08:08)
--- NOTE | 2022-04-29 18:22 | ED Physician Documentation ---
ED Addendum - Addendum Addendum: 04/29/22 18:22 Patient continues to board in the emergency department, pending placement in a long-term care facility by social work. There were no issues that arose today. The patient was comfortable and quiet. He took his meds and ate his meals. No interventions were required. We will continue to work with social work on a final disposition. Patient signed out to the oncoming emergency department physician pending this.
[2022-04-30] MEDS: PANTOPRAZOLE 40 MG TABLET PO SCH (06:33)
--- NOTE | 2022-04-30 07:49 | ED Physician Documentation ---
ED Addendum - Addendum Addendum: 04/30/22 07:48 Patient received a signout from off going physician, please see their d ocumentation for further detail. Patient evaluated independently at bedside at 0748 hrs. Found to be resting comfortably. Discussed overnight care with patient's nurse. No acute events to report. Patient has no complaints at this time. Physical exam demonstrates clear aeration in all lung cline and a soft nonacute abdomen. He requests a breakfast tray and verbalized understanding of our current plan for ongoing work with social work/rn social work for placement.
[2022-04-30] MEDS: ATORVASTATIN 40 MG TABLET PO SCH (08:27)
[2022-04-30] MEDS: CLOPIDOGREL 75 MG TABLET PO SCH (08:27)
[2022-04-30] MEDS: lisinopriL 5 MG TABLET PO SCH (08:27)
[2022-04-30] MEDS: amLODIPine 5 MG TABLET PO SCH (08:27)
--- NOTE | 2022-04-30 13:28 | ED Physician Documentation ---
ED Addendum - Addendum Addendum: 04/30/22 13:27 Notified by PT that they thought he was listing to the right on their evaluation today. They had not noted that 2 days ago when they last worked with him. I discussed with the with the patient. He is aware of this, but he does seem confused as he is able to name the month but not the year and he says he is 75 years old. He thinks his symptoms started 4 to 5 days ago. On examination he does have a possible mild right facial droop but peripheral strength appears n ormal. NIH stroke scale is 2 for confusion and right facial droop. Will obtain a CT of the head. Also labs and EKG. 04/30/22 13:42 Twelve-lead EKG done at 1334 hrs. discloses normal sinus rhythm with a rate of 67. No ectopy or ST elevation or depression. 04/30/22 14:44 CT of the head interpreted independently by me but also discussed with the radiologist shows no acute changes. He does have an old infarct of the left temporoparietal lobe. My suspicion is the things we are seeing at this point are from his old stroke. He is already medically managed for stroke. 04/30/22 14:45 CBC from today reviewed with mild anemia. INR is normal. CMP showing elevated BUN. Given this he may have some hypovolemia exacerbating prior stroke symptoms and I will bolus him with IV fluids.
--- NOTE | 2022-04-30 14:14 | CT Report ---
PROCEDURE: Head W/O Stroke Protocol INDICATIONS: Neuro deficit, acute, stroke suspected TECHNIQUE: Noncontrast 4.5 mm thick angled axial sections acquired from the foramen magnum to the vertex, with c oronal reformats. For radiation dose reduction, the following was used: automated exposure control, adjustment of mA and/or kV according to patient size. COMPARISON: 04/26/2022 and 03/05/2021 FINDINGS: Image quality: Excellent. CSF spaces: Basal cisterns are patent. No extra-axial fluid collections. Ventricles are normal in size and shape. Brain: Old infarction involving left frontoparietal lobe is again seen with encephalomalacia and ex v acuo dilatation of left lateral ventricle unchanged from prior study. There is no shift. No intracra nial masses or hemorrhage. Diffuse volume loss and periventricular and deep white matter chronic smal l vessel ischemic changes are again seen. There is intracranial internal carotid artery atheroscleros is. Skull and face: Calvarium and visualized facial bones are intact, without suspicious lesions. Sinuses: Visualized sinuses and mastoids are clear. IMPRESSION: 1. No CT evidence of acute intracranial abnormalities. No contraindication for T PA therapy. 2. No significant changes from recent studies. Findings were reported to Dr. Oro in the ER at 2:01 PM on 04/30/2022. This study fulfills neurological imaging criteria for inclusion or exclusion of acute stroke therapie s based on available published neurological imaging guidelines. Reviewed by: Gzregorz Mckeon MD on 04/30/2022 2:13 PM PST Approved by: Grzegorz Mckeon MD on 04/30/2022 2:13 PM PST Station ID: [id number]
[2022-04-30 14:18] LABS: BASOPHILS % (AUTO) 0.3 %; EOSINOPHILS # (AUTO) 0.2 10^3/uL (0.0-0.7); HCT - HEMATOCRIT 40.1 % (42.0-52.0); HGB - HEMOGLOBIN 12.5 g/dL (14.0-18.0); LYMPHOCYTES # (AUTO) 1.3 10^3/uL (1.5-3.5); LYMPHOCYTES % (AUTO) 21.8 %; MEAN CORPUSCULAR HEMOGLOBIN 29.1 pg (27.0-31.0); MEAN CORPUSCULAR HGB CONC 31.2 g/dL (32.0-36.0); MEAN CORPUSCULAR VOLUME 93.5 fL (80.0-94.0); MEAN PLATELET VOLUME 9.9 fL (7.4-11.4); MONOCYTES # (AUTO) 0.6 10^3/uL (0.0-1.0); MONOCYTES % (AUTO) 9.3 %; NEUTROPHILS # (AUTO) 3.9 10^3/uL (1.5-6.6); NEUTROPHILS % (AUTO) 65.4 %; PLT - PLATELET COUNT 208 10^3/uL (130-450); RED BLOOD COUNT 4.29 10^6/uL (4.70-6.10); RED CELL DISTRIBUTION WIDTH 14.1 % (12.0-15.0); WHITE BLOOD COUNT 5.9 x10^3/uL (4.8-10.8)
[2022-04-30 14:30] LABS: PT - PROTHROMBIN TIME 11.5 secs (9.9-12.6)
[2022-04-30 14:32] LABS: ALBUMIN 3.7 g/dL (3.2-5.5); ALBUMIN/GLOBULIN RATIO 1.3 (1.0-2.2); BILIRUBIN,TOTAL 0.7 mg/dL (0.2-1.0); CREATININE 1.1 mg/dL (0.6-1.2); POTASSIUM 4.1 mmol/L (3.5-5.0); TOTAL PROTEIN 6.6 g/dL (6.7-8.2)
[2022-04-30] MEDS ORDERED: SODIUM CHLORIDE 0.9% 1,000 ML IV STA (14:46)
[2022-05-01] MEDS: PANTOPRAZOLE 40 MG TABLET PO SCH (06:36)
[2022-05-01] MEDS: amLODIPine 5 MG TABLET PO SCH (09:05)
[2022-05-01] MEDS: lisinopriL 5 MG TABLET PO SCH (09:05)
[2022-05-01] MEDS: CLOPIDOGREL 75 MG TABLET PO SCH (09:05)
[2022-05-01] MEDS: ATORVASTATIN 40 MG TABLET PO SCH (09:05)
[2022-05-02] MEDS: PANTOPRAZOLE 40 MG TABLET PO SCH (06:38)
[2022-05-02] MEDS: lisinopriL 5 MG TABLET PO SCH (09:23)
[2022-05-02] MEDS: amLODIPine 5 MG TABLET PO SCH (09:23)
[2022-05-02] MEDS: CLOPIDOGREL 75 MG TABLET PO SCH (09:23)
[2022-05-02] MEDS: ATORVASTATIN 40 MG TABLET PO SCH (09:23)
--- NOTE | 2022-05-02 10:36 | ED Physician Documentation ---
ED Addendum - Addendum Addendum: 05/02/22 10:36 Patient seen and examined at bedside.: Subjective: He has no complaints Objective: Vital signs reviewed with modest hypertension, otherwise unremarkable General: Well-appearing nontoxic. Assessment: 1. Dementia: Stable 2. Undomiciled: Due to decline over the last few months his son can no longer take care of him at home. Social work is working on placement and an APS report has been filed.
[2022-05-03] MEDS: PANTOPRAZOLE 40 MG TABLET PO SCH (06:55)
[2022-05-03] MEDS: amLODIPine 5 MG TABLET PO SCH (08:45)
[2022-05-03] MEDS: CLOPIDOGREL 75 MG TABLET PO SCH (08:45)
[2022-05-03] MEDS: lisinopriL 5 MG TABLET PO SCH (08:45)
[2022-05-03] MEDS: ATORVASTATIN 40 MG TABLET PO SCH (08:45)
[2022-05-04] MEDS: PANTOPRAZOLE 40 MG TABLET PO SCH (06:34)
--- NOTE | 2022-05-04 11:56 | ED Physician Documentation ---
ED Addendum - Addendum Addendum: 05/04/22 11:55 Patient was seen and examined at the bedside. He reports feeling well with no specific complaints. I reviewed the vitals for the last 24 hours and find him to be afebrile without tachycardia or hypotension. Benign clinical exam. He is intermittently incontinent of urine but is ambulatory with his walker. Assessment: #[address] scan on the showed no acute changes from most recent. #2 nosafe disposition. Social work continuing to work on placement as the family feels they can no longer care for him at home. APS report has been filed.
[2022-05-04] MEDS: amLODIPine 5 MG TABLET PO SCH (12:18)
[2022-05-04] MEDS: lisinopriL 5 MG TABLET PO SCH (12:18)
[2022-05-04] MEDS: ATORVASTATIN 40 MG TABLET PO SCH (12:18)
[2022-05-04] MEDS: CLOPIDOGREL 75 MG TABLET PO SCH (12:18)
[2022-05-05] MEDS: PANTOPRAZOLE 40 MG TABLET PO SCH (06:29)
[2022-05-05] MEDS: CLOPIDOGREL 75 MG TABLET PO SCH (09:13)
[2022-05-05] MEDS: amLODIPine 5 MG TABLET PO SCH (09:13)
[2022-05-05] MEDS: ATORVASTATIN 40 MG TABLET PO SCH (09:13)
[2022-05-05] MEDS: lisinopriL 5 MG TABLET PO SCH (09:13)
--- NOTE | 2022-05-05 11:06 | ED Physician Documentation ---
ED Addendum - Addendum Addendum: 05/05/22 11:04 In brief this is a 77-year-old gentleman who has dementia for which she been having increased frequency of falls. The family has refused to care for him at home and social work is pending placement. While here in the emergency department he has been up with PT frequently. He has had no further falls. He is been eating independently. Objective: vital signs reviewed without acute worrisome abnormalities over the last 24 hours. No fevers. No abdominal tenderness elicited. Assessment and plan: 77-year-old gentleman with dementia for whom his family declines to care for at home any further. Social work continues to work finding placement. There have been no behavioral concerns while here in the emergency department
[2022-05-06] MEDS: PANTOPRAZOLE 40 MG TABLET PO SCH (06:37)
[2022-05-06] MEDS: amLODIPine 5 MG TABLET PO SCH (08:51)
[2022-05-06] MEDS: lisinopriL 5 MG TABLET PO SCH (08:52)
[2022-05-06] MEDS: CLOPIDOGREL 75 MG TABLET PO SCH (08:52)
[2022-05-06] MEDS: ATORVASTATIN 40 MG TABLET PO SCH (08:52)
--- NOTE | 2022-05-06 08:56 | ED Physician Documentation ---
ED Addendum - Addendum Addendum: 05/06/22 08:53 The patient was resting and sleeping as a went into see him this morning. He was allowed to remaining resting and I will check in on him again later. Nursing notes did not reveal any particular problems. I will check nursing notes to see if they have been doing rolling or skin evaluations. Otherwise maintaining current diet and medications. Review of nursing notes from the last 2 days showed normal hygiene and cleansing and review of the [place] area without any problems. Physical therapy note from 05-05 showed they were not able to meet with the patient today due to time constraints. Presume they will be here today. Placement issues still ongoing. 05/06/22 08:56
[2022-05-07] MEDS: PANTOPRAZOLE 40 MG TABLET PO SCH (06:10)
[2022-05-07] MEDS: CLOPIDOGREL 75 MG TABLET PO SCH (09:05)
[2022-05-07] MEDS: amLODIPine 5 MG TABLET PO SCH (09:05)
[2022-05-07] MEDS: ATORVASTATIN 40 MG TABLET PO SCH (09:05)
[2022-05-07] MEDS: lisinopriL 5 MG TABLET PO SCH (09:05)
--- NOTE | 2022-05-07 21:33 | ED Physician Documentation ---
ED Addendum - Addendum Addendum: 05/07/22 21:31 Patient had moved to med/surg unit yesterday for prolonged boarding. Seems to have settled into room okay. Nursing notes stated patient comfortable. Regular diet and meds. [facility] for [facility] without return call. Presume will not hear back from them until Tuesday at least. HCS assessemnt scheduled for May 21 or per Hospitalist. Discussed briefly with hsopitalist and no new orders needed.
[2022-05-08] MEDS: PANTOPRAZOLE 40 MG TABLET PO SCH (07:52)
[2022-05-08] MEDS: amLODIPine 5 MG TABLET PO SCH (08:56)
[2022-05-08] MEDS: CLOPIDOGREL 75 MG TABLET PO SCH (08:56)
[2022-05-08] MEDS: lisinopriL 5 MG TABLET PO SCH (08:56)
[2022-05-08] MEDS: ATORVASTATIN 40 MG TABLET PO SCH (08:56)
[2022-05-09] MEDS: PANTOPRAZOLE 40 MG TABLET PO SCH (06:36)
[2022-05-09] MEDS: CLOPIDOGREL 75 MG TABLET PO SCH (09:16)
[2022-05-09] MEDS: lisinopriL 5 MG TABLET PO SCH (09:17)
[2022-05-09] MEDS: amLODIPine 5 MG TABLET PO SCH (09:17)
[2022-05-09] MEDS: ATORVASTATIN 40 MG TABLET PO SCH (09:22)
--- NOTE | 2022-05-09 18:57 | ED Physician Documentation ---
ED Addendum - Addendum Addendum: 05/09/22 18:57 Patient is still awaiting placement. No acute issues. No acute issues overnight.
[2022-05-10] MEDS: PANTOPRAZOLE 40 MG TABLET PO SCH (06:13)
--- NOTE | 2022-05-10 08:15 | ED Physician Documentation ---
ED Addendum - Addendum Addendum: Patient seen this morning. He has eaten his breakfast. He states he is enjoying the view from his wire. Denies any concerns or complaints.Social work continues to work on a safe disposition.
[2022-05-10] MEDS: lisinopriL 5 MG TABLET PO SCH (11:03)
[2022-05-10] MEDS: amLODIPine 5 MG TABLET PO SCH (11:04)
[2022-05-10] MEDS: CLOPIDOGREL 75 MG TABLET PO SCH (11:05)
[2022-05-10] MEDS: ATORVASTATIN 40 MG TABLET PO SCH (11:05)
[2022-05-11] MEDS: PANTOPRAZOLE 40 MG TABLET PO SCH (06:27)
[2022-05-11] MEDS: lisinopriL 5 MG TABLET PO SCH (09:28)
[2022-05-11] MEDS: CLOPIDOGREL 75 MG TABLET PO SCH (09:29)
[2022-05-11] MEDS: ATORVASTATIN 40 MG TABLET PO SCH (09:29)
[2022-05-11] MEDS: amLODIPine 5 MG TABLET PO SCH (09:29)
[2022-05-12] MEDS: PANTOPRAZOLE 40 MG TABLET PO SCH (06:45)
[2022-05-12] MEDS: ATORVASTATIN 40 MG TABLET PO SCH (08:42)
[2022-05-12] MEDS: amLODIPine 5 MG TABLET PO SCH (08:42)
[2022-05-12] MEDS: lisinopriL 5 MG TABLET PO SCH (08:43)
[2022-05-12] MEDS: CLOPIDOGREL 75 MG TABLET PO SCH (08:43)
[2022-05-13] MEDS: PANTOPRAZOLE 40 MG TABLET PO SCH (06:50)
[2022-05-13] MEDS: lisinopriL 5 MG TABLET PO SCH (08:13)
[2022-05-13] MEDS: CLOPIDOGREL 75 MG TABLET PO SCH (08:13)
[2022-05-13] MEDS: amLODIPine 5 MG TABLET PO SCH (08:13)
[2022-05-13] MEDS: ATORVASTATIN 40 MG TABLET PO SCH (08:13)
--- NOTE | 2022-05-13 18:19 | ED Physician Documentation ---
ED Addendum - Addendum Addendum: 05/13/22 18:17 The patient was signed out to me at change of shift, continuing to pend placement in an assisted living facility. She has had no further issues today. She is eating her meals and been stable. She has gotten all her medications as ordered. Social work has continued to be involved with her case, and final disposition is still pending. She is signed out to the oncoming emergency physician as such
[2022-05-14] MEDS: PANTOPRAZOLE 40 MG TABLET PO SCH (06:34)
[2022-05-14] MEDS: CLOPIDOGREL 75 MG TABLET PO SCH (08:58)
[2022-05-14] MEDS: ATORVASTATIN 40 MG TABLET PO SCH (08:58)
[2022-05-14] MEDS: lisinopriL 5 MG TABLET PO SCH (08:58)
[2022-05-14] MEDS: amLODIPine 5 MG TABLET PO SCH (08:58)
[2022-05-14] MEDS ORDERED: ONDANSETRON ODT 4 MG TABLET TL PRN (16:36)
--- NOTE | 2022-05-14 17:26 | ED Physician Documentation ---
ED Addendum - Addendum Addendum: 05/14/22 17:25 The patient was signed out to me at change of shift, continuing to pend transfer to a long-term care facility. Social work continues to be involved in working on this. The patient had no complaints and was stable throughout the day. At nurses request, I did change his IV Zofran to oral dissolving Zofran and an as needed Order for Tums was also placed. Patient will be signed out to the oncoming emergency physician continuing to pend final disposition.
[2022-05-14] MEDS: CALCIUM CARBONATE CHEW 500 MG TABLET PO SCH (20:14)
[2022-05-15] MEDS: PANTOPRAZOLE 40 MG TABLET PO SCH (06:45)
[2022-05-15] MEDS: lisinopriL 5 MG TABLET PO SCH (08:33)
[2022-05-15] MEDS: ATORVASTATIN 40 MG TABLET PO SCH (08:33)
[2022-05-15] MEDS: amLODIPine 5 MG TABLET PO SCH (08:34)
[2022-05-15] MEDS: CLOPIDOGREL 75 MG TABLET PO SCH (08:34)
[2022-05-15] MEDS: CALCIUM CARBONATE CHEW 500 MG TABLET PO SCH ×2 (08:34→19:59)
--- NOTE | 2022-05-15 16:01 | ED Physician Documentation ---
ED Addendum - Addendum Addendum: 05/15/22 16:00 No reports of problems from nursing notes or social work. The patient remains stable with some forgetfulness of course otherwise alert. Social work notes states they have been trying to [facility] to the [facility] as he is 50% service- connected and to see what resources are available through that.
[2022-05-16] MEDS: PANTOPRAZOLE 40 MG TABLET PO SCH (06:49)
[2022-05-16] MEDS: CALCIUM CARBONATE CHEW 500 MG TABLET PO SCH ×2 (08:16→20:52)
[2022-05-16] MEDS: lisinopriL 5 MG TABLET PO SCH (08:16)
[2022-05-16] MEDS: ATORVASTATIN 40 MG TABLET PO SCH (08:16)
[2022-05-16] MEDS: CLOPIDOGREL 75 MG TABLET PO SCH (08:16)
[2022-05-16] MEDS: amLODIPine 5 MG TABLET PO SCH (08:17)
[2022-05-17] MEDS: PANTOPRAZOLE 40 MG TABLET PO SCH (06:34)
[2022-05-17] MEDS: amLODIPine 5 MG TABLET PO SCH (08:13)
[2022-05-17] MEDS: lisinopriL 5 MG TABLET PO SCH (08:13)
[2022-05-17] MEDS: CALCIUM CARBONATE CHEW 500 MG TABLET PO SCH ×2 (08:13→23:07)
[2022-05-17] MEDS: ATORVASTATIN 40 MG TABLET PO SCH (08:14)
[2022-05-17] MEDS: CLOPIDOGREL 75 MG TABLET PO SCH (08:14)
[2022-05-18] MEDS: PANTOPRAZOLE 40 MG TABLET PO SCH (06:42)
[2022-05-18] MEDS: CLOPIDOGREL 75 MG TABLET PO SCH (09:26)
[2022-05-18] MEDS: ATORVASTATIN 40 MG TABLET PO SCH (09:26)
[2022-05-18] MEDS: amLODIPine 5 MG TABLET PO SCH (09:26)
[2022-05-18] MEDS: CALCIUM CARBONATE CHEW 500 MG TABLET PO SCH ×2 (09:27→21:00)
[2022-05-18] MEDS: lisinopriL 5 MG TABLET PO SCH (09:27)
--- NOTE | 2022-05-18 17:06 | ED Physician Documentation ---
ED Addendum - Addendum Addendum: Patient is boarding on the medical floor for placement. Social work continues to work on his case.No issues brought to our attention from floor nursing staff.
[2022-05-19] MEDS: PANTOPRAZOLE 40 MG TABLET PO SCH (06:04)
[2022-05-19] MEDS: amLODIPine 5 MG TABLET PO SCH (09:20)
[2022-05-19] MEDS: ATORVASTATIN 40 MG TABLET PO SCH (09:20)
[2022-05-19] MEDS: lisinopriL 5 MG TABLET PO SCH (09:20)
[2022-05-19] MEDS: CLOPIDOGREL 75 MG TABLET PO SCH (09:20)
[2022-05-19] MEDS: CALCIUM CARBONATE CHEW 500 MG TABLET PO SCH ×2 (09:22→21:46)
[2022-05-20] MEDS: PANTOPRAZOLE 40 MG TABLET PO SCH (07:05)
[2022-05-20] MEDS: ATORVASTATIN 40 MG TABLET PO SCH (08:31)
[2022-05-20] MEDS: lisinopriL 5 MG TABLET PO SCH (08:31)
[2022-05-20] MEDS: amLODIPine 5 MG TABLET PO SCH (08:31)
[2022-05-20] MEDS: CLOPIDOGREL 75 MG TABLET PO SCH (08:32)
[2022-05-20] MEDS: CALCIUM CARBONATE CHEW 500 MG TABLET PO SCH ×2 (08:32→22:44)
[2022-05-21] MEDS: PANTOPRAZOLE 40 MG TABLET PO SCH (06:55)
[2022-05-21] MEDS: ATORVASTATIN 40 MG TABLET PO SCH (09:55)
[2022-05-21] MEDS: CLOPIDOGREL 75 MG TABLET PO SCH (09:55)
[2022-05-21] MEDS: CALCIUM CARBONATE CHEW 500 MG TABLET PO SCH ×2 (09:55→22:15)
[2022-05-21] MEDS: lisinopriL 5 MG TABLET PO SCH (09:56)
[2022-05-21] MEDS: amLODIPine 5 MG TABLET PO SCH (09:56)
[2022-05-22] MEDS: CALCIUM CARBONATE CHEW 500 MG TABLET PO SCH ×3 (09:00→22:03)
[2022-05-22] MEDS: amLODIPine 5 MG TABLET PO SCH (09:06)
[2022-05-22] MEDS: ATORVASTATIN 40 MG TABLET PO SCH (09:06)
[2022-05-22] MEDS: lisinopriL 5 MG TABLET PO SCH (09:06)
[2022-05-22] MEDS: CLOPIDOGREL 75 MG TABLET PO SCH (09:06)
[2022-05-22] MEDS: PANTOPRAZOLE 40 MG TABLET PO SCH (09:10)
--- NOTE | 2022-05-22 19:14 | ED Physician Documentation ---
ED Addendum - Addendum Addendum: 05/22/22 19:13 Patient was examined at the bedside. He has no new complaints. Vital signs reviewed for the last 24 hours with no acute worrisome abnormalities. He continues to board in the emergency department pending social work and appropriate GROUP HOME versus SNF placement. Impression: dementia without safe disposition
[2022-05-23] MEDS: ATORVASTATIN 40 MG TABLET PO SCH (10:39)
[2022-05-23] MEDS: PANTOPRAZOLE 40 MG TABLET PO SCH (10:39)
[2022-05-23] MEDS: CALCIUM CARBONATE CHEW 500 MG TABLET PO SCH ×2 (10:40→23:29)
[2022-05-23] MEDS: lisinopriL 5 MG TABLET PO SCH (10:40)
[2022-05-23] MEDS: amLODIPine 5 MG TABLET PO SCH (10:40)
[2022-05-23] MEDS: CLOPIDOGREL 75 MG TABLET PO SCH (10:40)
[2022-05-24] MEDS: PANTOPRAZOLE 40 MG TABLET PO SCH (06:39)
[2022-05-24] MEDS: amLODIPine 5 MG TABLET PO SCH (08:19)
[2022-05-24] MEDS: lisinopriL 5 MG TABLET PO SCH (08:19)
[2022-05-24] MEDS: CALCIUM CARBONATE CHEW 500 MG TABLET PO SCH ×2 (08:20→21:56)
[2022-05-24] MEDS: ATORVASTATIN 40 MG TABLET PO SCH (08:20)
[2022-05-24] MEDS: CLOPIDOGREL 75 MG TABLET PO SCH (08:20)
[2022-05-25] MEDS: PANTOPRAZOLE 40 MG TABLET PO SCH (06:43)
[2022-05-25] MEDS: CLOPIDOGREL 75 MG TABLET PO SCH (08:10)
[2022-05-25] MEDS: CALCIUM CARBONATE CHEW 500 MG TABLET PO SCH ×4 (08:10→22:06)
[2022-05-25] MEDS: amLODIPine 5 MG TABLET PO SCH (08:10)
[2022-05-25] MEDS: ATORVASTATIN 40 MG TABLET PO SCH (08:10)
[2022-05-25] MEDS: lisinopriL 5 MG TABLET PO SCH (08:10)
--- NOTE | 2022-05-25 11:41 | ED Physician Documentation ---
ED Addendum - Addendum Addendum: 05/25/22 11:40 I have personally evaluated the patient at the bedside. He is sitting up in a chair. Alert pleasant conversant. He denies any complaints. I have reviewed the vital signs over the last few days and find no worrisome abnormalities. No fevers, tachycardia hypotension etc. Nursing staff reports to me that he is eating his meals well. Cardiopulmonary exam was unremarkable today no abdominal tenderness elicited. He will continue to board pending social work placement and formal disposition of this gentleman in whom his family does not feel can be adequately cared for at home. Impression: Dementia
[2022-05-26] MEDS: PANTOPRAZOLE 40 MG TABLET PO SCH (06:30)
--- NOTE | 2022-05-26 07:39 | ED Physician Documentation ---
ED Addendum - Addendum Addendum: 05/26/22 07:37 Patient seen this morning on rounds. He is sleeping so I did not awaken him.His nurse was outside the room and she states there are no concerns regarding the patient. She asks for us to change his Tums order to as needed as he only wants it when he has heartburn And he has recently been refusing it.Prior calcium levels have been within normal limits so does not appear he was getting it for calcium replacement. Patient remains boarding and social work continues to work on safe disposition.
[2022-05-26] MEDS: ATORVASTATIN 40 MG TABLET PO SCH (08:49)
[2022-05-26] MEDS: lisinopriL 5 MG TABLET PO SCH (08:49)
[2022-05-26] MEDS: amLODIPine 5 MG TABLET PO SCH (08:49)
[2022-05-26] MEDS: CLOPIDOGREL 75 MG TABLET PO SCH (08:49)
[2022-05-27] MEDS: PANTOPRAZOLE 40 MG TABLET PO SCH (06:40)
[2022-05-27] MEDS: amLODIPine 5 MG TABLET PO SCH (08:57)
[2022-05-27] MEDS: ATORVASTATIN 40 MG TABLET PO SCH (08:57)
[2022-05-27] MEDS: lisinopriL 5 MG TABLET PO SCH (08:57)
[2022-05-27] MEDS: CLOPIDOGREL 75 MG TABLET PO SCH (08:58)
--- NOTE | 2022-05-27 13:57 | ED Physician Documentation ---
ED Addendum - Addendum Addendum: No acute events overnight. Social work is continuing to reach out to patient's family to help fill out forms for the [facility]. He remains in the emergency department pending placement for safe disposition.
[2022-05-28] MEDS: PANTOPRAZOLE 40 MG TABLET PO SCH (06:56)
[2022-05-28] MEDS: CLOPIDOGREL 75 MG TABLET PO SCH (08:21)
[2022-05-28] MEDS: amLODIPine 5 MG TABLET PO SCH (08:21)
[2022-05-28] MEDS: lisinopriL 5 MG TABLET PO SCH (08:21)
[2022-05-28] MEDS: ATORVASTATIN 40 MG TABLET PO SCH (08:21)
--- NOTE | 2022-05-28 16:03 | ED Physician Documentation ---
ED Addendum - Addendum Addendum: 05/28/22 16:02 77-year-old Sharee Lipscomb has had a fall at home and is now no longer able to be cared for by his son. He has plans to reside in the [facility] in [place]. He is awaiting paperwork and is currently placed in our facility as an emergency department patient on the floor. He indicates he has slept well is not in particular pain has no specific needs.
[2022-05-29] MEDS: PANTOPRAZOLE 40 MG TABLET PO SCH (05:58)
[2022-05-29] MEDS: ATORVASTATIN 40 MG TABLET PO SCH (08:06)
[2022-05-29] MEDS: lisinopriL 5 MG TABLET PO SCH (08:07)
[2022-05-29] MEDS: CLOPIDOGREL 75 MG TABLET PO SCH (08:07)
[2022-05-29] MEDS: amLODIPine 5 MG TABLET PO SCH (08:07)
--- NOTE | 2022-05-29 18:42 | ED Physician Documentation ---
ED Addendum - Addendum Addendum: 05/29/22 18:42 NO changes today for Mr. Lipscomb. He is awaiting placement.
[2022-05-30] MEDS: PANTOPRAZOLE 40 MG TABLET PO SCH (06:37)
[2022-05-30] MEDS: lisinopriL 5 MG TABLET PO SCH (08:24)
[2022-05-30] MEDS: CLOPIDOGREL 75 MG TABLET PO SCH (08:24)
[2022-05-30] MEDS: ATORVASTATIN 40 MG TABLET PO SCH (08:24)
[2022-05-30] MEDS: amLODIPine 5 MG TABLET PO SCH (08:24)
--- NOTE | 2022-05-30 18:09 | ED Physician Documentation ---
ED Addendum - Addendum Addendum: 05/30/22 18:08 Patient seen and evaluated at bedside at approximately 1800 hrs. Report from nursing staff is that he had an unwitnessed fall and was found sitting in front of the toilet of his bathroom. He denies any head trauma and reports that he just "slid off the pod". He has no focal or lateralizing neurologic deficits. There is no spinal tenderness to palpation. He moves all extremities spontaneously. I will order for CT of his head at this time to ensure that there is no intracranial injury. I will be sending her out to the oncoming physician, please see their documentation for further detail. CT head was reviewed: Negative for intercranial abnormality. 06/01/22 01:52
--- NOTE | 2022-05-30 19:06 | CT Report ---
PROCEDURE: HEAD WO INDICATIONS: fall TECHNIQUE: Noncontrast 4.5 mm thick angled axial sections acquired from the foramen magnum to the vertex. For r adiation dose reduction, the following was used: automated exposure control, adjustment of mA and/or kV according to patient size. COMPARISON: 04/30/2022, 04/26/2022 and 03/05/2021 FINDINGS: Image quality: Excellent. CSF spaces: Basal cisterns are patent. No extra-axial fluid collections. The ventricles are symmet janneth in size and shape. Brain: No intracranial bleeds or masses. 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 T here is cerebral volume loss for age, with resultant ventricular and sulcal prominence. There are pe riventricular and deep white matter chronic small vessel ischemic changes. There is intracranial int ernal carotid artery atherosclerosis. Skull and face: Calvarium and visualized facial bones appear intact, without suspicious lesions. Sinuses: Visualized sinuses and mastoids are clear. IMPRESSION: No CT evidence of acute intracranial abnormalities. No significant changes from previous studies. No acute skull fracture. Reviewed by: Grzegorz Mckeon MD on 05/30/2022 7:05 PM PST Approved by: Grzegorz Mckeon MD on 05/30/2022 7:05 PM PST Station ID: [id number]
--- NOTE | 2022-05-30 21:41 | ED Physician Documentation ---
ED Addendum - Addendum Addendum: 05/30/22 21:40 We were notified by the floor staff that the patient had an unwitnessed fall in the bathroom. Patient was seen by my colleague earlier in the shift after the fall and he did order a CT. Subsequently the imaging has been completed and is found to be negative for acute intracranial findings. Patient continues to board here in the emergency department pending appropriate social work evaluation for long-term placement
[2022-05-31] MEDS: PANTOPRAZOLE 40 MG TABLET PO SCH (07:00)
[2022-05-31] MEDS: ATORVASTATIN 40 MG TABLET PO SCH (08:02)
[2022-05-31] MEDS: CLOPIDOGREL 75 MG TABLET PO SCH (08:02)
[2022-05-31] MEDS: amLODIPine 5 MG TABLET PO SCH (08:02)
[2022-05-31] MEDS: lisinopriL 5 MG TABLET PO SCH (08:03)
[2022-06-01] MEDS: PANTOPRAZOLE 40 MG TABLET PO SCH (06:32)
[2022-06-01] MEDS: ATORVASTATIN 40 MG TABLET PO SCH (09:41)
[2022-06-01] MEDS: lisinopriL 5 MG TABLET PO SCH (09:41)
[2022-06-01] MEDS: amLODIPine 5 MG TABLET PO SCH (09:41)
[2022-06-01] MEDS: CLOPIDOGREL 75 MG TABLET PO SCH (09:41)
[2022-06-02] MEDS: PANTOPRAZOLE 40 MG TABLET PO SCH (06:42)
[2022-06-02] MEDS: CLOPIDOGREL 75 MG TABLET PO SCH (08:18)
[2022-06-02] MEDS: lisinopriL 5 MG TABLET PO SCH (08:18)
[2022-06-02] MEDS: ATORVASTATIN 40 MG TABLET PO SCH (08:18)
[2022-06-02] MEDS: amLODIPine 5 MG TABLET PO SCH (08:18)
[2022-06-03] MEDS: PANTOPRAZOLE 40 MG TABLET PO SCH (05:57)
[2022-06-03] MEDS: ATORVASTATIN 40 MG TABLET PO SCH (09:32)
[2022-06-03] MEDS: CLOPIDOGREL 75 MG TABLET PO SCH (09:32)
[2022-06-03] MEDS: amLODIPine 5 MG TABLET PO SCH (09:32)
[2022-06-03] MEDS: lisinopriL 5 MG TABLET PO SCH (09:32)
--- NOTE | 2022-06-03 16:33 | ED Physician Documentation ---
ED Addendum - Addendum Addendum: 06/03/22 16:32 Sharee Lipscomb is awaiting placement and has no specific needs or changes in the past day. I encountered the patient sitting watching a Western and enjoying himself. He has no idea what the future plan is.
[2022-06-04] MEDS: PANTOPRAZOLE 40 MG TABLET PO SCH (06:14)
[2022-06-04] MEDS: CLOPIDOGREL 75 MG TABLET PO SCH (08:25)
[2022-06-04] MEDS: ATORVASTATIN 40 MG TABLET PO SCH (08:25)
[2022-06-04] MEDS: amLODIPine 5 MG TABLET PO SCH (08:26)
[2022-06-04] MEDS: lisinopriL 5 MG TABLET PO SCH (08:26)
[2022-06-05] MEDS: PANTOPRAZOLE 40 MG TABLET PO SCH (07:00)
[2022-06-05] MEDS: CLOPIDOGREL 75 MG TABLET PO SCH (08:08)
[2022-06-05] MEDS: ATORVASTATIN 40 MG TABLET PO SCH (08:08)
[2022-06-05] MEDS: lisinopriL 5 MG TABLET PO SCH (08:09)
[2022-06-05] MEDS: amLODIPine 5 MG TABLET PO SCH (08:09)
--- NOTE | 2022-06-05 17:46 | ED Physician Documentation ---
ED Addendum - Addendum Addendum: 06/05/22 17:46 Patient is still awaiting placement. No events overnight. Social work will continue to look for placement. They have not heard from the son who was following up with the [facility].
[2022-06-06] MEDS: PANTOPRAZOLE 40 MG TABLET PO SCH (06:33)
[2022-06-06] MEDS: lisinopriL 5 MG TABLET PO SCH (08:16)
[2022-06-06] MEDS: CLOPIDOGREL 75 MG TABLET PO SCH (08:16)
[2022-06-06] MEDS: ATORVASTATIN 40 MG TABLET PO SCH (08:16)
[2022-06-06] MEDS: amLODIPine 5 MG TABLET PO SCH (08:17)
--- NOTE | 2022-06-06 15:52 | ED Physician Documentation ---
ED Addendum - Addendum Addendum: 06/06/22 15:52 Patient continues to await placement. No acute changes overnight.
[2022-06-07] MEDS: PANTOPRAZOLE 40 MG TABLET PO SCH (06:47)
[2022-06-07] MEDS: CLOPIDOGREL 75 MG TABLET PO SCH (09:19)
[2022-06-07] MEDS: ATORVASTATIN 40 MG TABLET PO SCH (09:19)
[2022-06-07] MEDS: amLODIPine 5 MG TABLET PO SCH (09:19)
[2022-06-07] MEDS: lisinopriL 5 MG TABLET PO SCH (09:20)
[2022-06-07] MEDS: polyethylene glycoL 3350 17 GM PACKET PO SCH (12:57)
[2022-06-07] MEDS: DOCUSATE SODIUM 250 MG CAPSULE PO SCH (12:57)
--- NOTE | 2022-06-07 22:20 | ED Physician Documentation ---
ED Addendum - Addendum Addendum: 06/07/22 22:19 Report from nursing that the patient had not had BM for few days and nursing asks for bowel set meds. Otherwise continues with usual meds/meals/etc.
[2022-06-08] MEDS: PANTOPRAZOLE 40 MG TABLET PO SCH (06:36)
[2022-06-08] MEDS: polyethylene glycoL 3350 17 GM PACKET PO SCH (09:00)
[2022-06-08] MEDS: CLOPIDOGREL 75 MG TABLET PO SCH (09:27)
[2022-06-08] MEDS: ATORVASTATIN 40 MG TABLET PO SCH (09:27)
[2022-06-08] MEDS: DOCUSATE SODIUM 250 MG CAPSULE PO SCH (09:27)
[2022-06-08] MEDS: amLODIPine 5 MG TABLET PO SCH (09:27)
[2022-06-08] MEDS: lisinopriL 5 MG TABLET PO SCH (09:27)
--- NOTE | 2022-06-08 18:06 | ED Physician Documentation ---
ED Addendum - Addendum Addendum: 06/08/22 18:04 Sharee Lipscomb is feeling well today. 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 The patient does have dementia and is unable to recall exactly what was he built out of a metal. 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 He is able to recall the name of the company he worked for. He is not able to recall what it was that he made. He was not able to recall where his sons live. He is still awaiting placement. 06/08/22 18:06
[2022-06-09] MEDS: PANTOPRAZOLE 40 MG TABLET PO SCH (06:30)
[2022-06-09] MEDS: DOCUSATE SODIUM 250 MG CAPSULE PO SCH (07:51)
[2022-06-09] MEDS: ATORVASTATIN 40 MG TABLET PO SCH (07:51)
[2022-06-09] MEDS: CLOPIDOGREL 75 MG TABLET PO SCH (07:52)
[2022-06-09] MEDS: lisinopriL 5 MG TABLET PO SCH (07:52)
[2022-06-09] MEDS: polyethylene glycoL 3350 17 GM PACKET PO SCH (07:52)
[2022-06-09] MEDS: amLODIPine 5 MG TABLET PO SCH (07:52)
--- NOTE | 2022-06-09 11:05 | ED Physician Documentation ---
ED Addendum - Addendum Addendum: 06/09/22 11:04 Nursing reports the patient had good bowel movement yesterday and is not having any stomach pains. We did instituted typical stool softeners and bowel regimen 2 days ago and apparently doing well. No other concerns from nursing staff. The patient is still awaiting placement.
[2022-06-10] MEDS: PANTOPRAZOLE 40 MG TABLET PO SCH (06:38)
[2022-06-10] MEDS: DOCUSATE SODIUM 250 MG CAPSULE PO SCH (08:28)
[2022-06-10] MEDS: amLODIPine 5 MG TABLET PO SCH (08:28)
[2022-06-10] MEDS: lisinopriL 5 MG TABLET PO SCH (08:28)
[2022-06-10] MEDS: ATORVASTATIN 40 MG TABLET PO SCH (08:28)
[2022-06-10] MEDS: CLOPIDOGREL 75 MG TABLET PO SCH (08:29)
[2022-06-10] MEDS: polyethylene glycoL 3350 17 GM PACKET PO SCH (08:29)
[2022-06-11] MEDS: PANTOPRAZOLE 40 MG TABLET PO SCH (06:43)
[2022-06-11] MEDS: lisinopriL 5 MG TABLET PO SCH (09:34)
[2022-06-11] MEDS: CLOPIDOGREL 75 MG TABLET PO SCH (09:34)
[2022-06-11] MEDS: DOCUSATE SODIUM 250 MG CAPSULE PO SCH (09:34)
[2022-06-11] MEDS: ATORVASTATIN 40 MG TABLET PO SCH (09:34)
[2022-06-11] MEDS: amLODIPine 5 MG TABLET PO SCH (09:34)
[2022-06-11] MEDS: polyethylene glycoL 3350 17 GM PACKET PO SCH ×2 (09:46→10:39)
[2022-06-12] MEDS: PANTOPRAZOLE 40 MG TABLET PO SCH (06:54)
[2022-06-12] MEDS: ATORVASTATIN 40 MG TABLET PO SCH (07:58)
[2022-06-12] MEDS: lisinopriL 5 MG TABLET PO SCH (07:58)
[2022-06-12] MEDS: polyethylene glycoL 3350 17 GM PACKET PO SCH (07:58)
[2022-06-12] MEDS: DOCUSATE SODIUM 250 MG CAPSULE PO SCH (07:58)
[2022-06-12] MEDS: CLOPIDOGREL 75 MG TABLET PO SCH (07:58)
[2022-06-12] MEDS: amLODIPine 5 MG TABLET PO SCH (07:58)
--- NOTE | 2022-06-12 16:12 | ED Physician Documentation ---
ED Addendum - Addendum Addendum: 06/12/22 16:11 - Seen this afternoon. He is sitting up at the bedside chair watching a movie. He reports eating well and denies any complaints or concerns. RN denies any needs at this time. Patient remains boarding awaiting placement. Social work continues to work on his case.
[2022-06-13] MEDS: PANTOPRAZOLE 40 MG TABLET PO SCH (07:43)
[2022-06-13] MEDS: DOCUSATE SODIUM 250 MG CAPSULE PO SCH (08:47)
[2022-06-13] MEDS: lisinopriL 5 MG TABLET PO SCH (08:47)
[2022-06-13] MEDS: amLODIPine 5 MG TABLET PO SCH (08:47)
[2022-06-13] MEDS: ATORVASTATIN 40 MG TABLET PO SCH (08:47)
[2022-06-13] MEDS: CLOPIDOGREL 75 MG TABLET PO SCH (08:47)
[2022-06-13] MEDS: polyethylene glycoL 3350 17 GM PACKET PO SCH (08:48)
--- NOTE | 2022-06-13 16:13 | ED Physician Documentation ---
ED Addendum - Addendum Addendum: Pt Remains boarding awaiting placement. Social work continues to work on his case. No acute issues.
[2022-06-14] MEDS: PANTOPRAZOLE 40 MG TABLET PO SCH (06:56)
--- NOTE | 2022-06-14 07:30 | ED Physician Documentation ---
ED Addendum - Addendum Addendum: Patient remains boarding awaiting placement. Social work continues to work on his case. No acute issues/events. Pt has been getting out of bed, having meals, enjoying watching shows.
[2022-06-14] MEDS: lisinopriL 5 MG TABLET PO SCH (08:08)
[2022-06-14] MEDS: amLODIPine 5 MG TABLET PO SCH (08:08)
[2022-06-14] MEDS: DOCUSATE SODIUM 250 MG CAPSULE PO SCH (08:09)
[2022-06-14] MEDS: CLOPIDOGREL 75 MG TABLET PO SCH (08:09)
[2022-06-14] MEDS: polyethylene glycoL 3350 17 GM PACKET PO SCH (08:09)
[2022-06-14] MEDS: ATORVASTATIN 40 MG TABLET PO SCH (08:09)
[2022-06-15] MEDS: PANTOPRAZOLE 40 MG TABLET PO SCH (06:31)
[2022-06-15] MEDS: polyethylene glycoL 3350 17 GM PACKET PO SCH (07:57)
[2022-06-15] MEDS: amLODIPine 5 MG TABLET PO SCH (07:57)
[2022-06-15] MEDS: CLOPIDOGREL 75 MG TABLET PO SCH (07:57)
[2022-06-15] MEDS: lisinopriL 5 MG TABLET PO SCH (07:57)
[2022-06-15] MEDS: DOCUSATE SODIUM 250 MG CAPSULE PO SCH (07:57)
[2022-06-15] MEDS: ATORVASTATIN 40 MG TABLET PO SCH (07:57)
[2022-06-16] MEDS: PANTOPRAZOLE 40 MG TABLET PO SCH (06:42)
[2022-06-16] MEDS: polyethylene glycoL 3350 17 GM PACKET PO SCH (08:12)
[2022-06-16] MEDS: ATORVASTATIN 40 MG TABLET PO SCH (08:12)
[2022-06-16] MEDS: DOCUSATE SODIUM 250 MG CAPSULE PO SCH (08:12)
[2022-06-16] MEDS: lisinopriL 5 MG TABLET PO SCH (08:12)
[2022-06-16] MEDS: amLODIPine 5 MG TABLET PO SCH (08:13)
[2022-06-16] MEDS: CLOPIDOGREL 75 MG TABLET PO SCH (08:13)
[2022-06-17] MEDS: PANTOPRAZOLE 40 MG TABLET PO SCH (06:51)
[2022-06-17] MEDS: DOCUSATE SODIUM 250 MG CAPSULE PO SCH (08:21)
[2022-06-17] MEDS: CLOPIDOGREL 75 MG TABLET PO SCH (08:21)
[2022-06-17] MEDS: lisinopriL 5 MG TABLET PO SCH (08:22)
[2022-06-17] MEDS: amLODIPine 5 MG TABLET PO SCH (08:22)
[2022-06-17] MEDS: ATORVASTATIN 40 MG TABLET PO SCH (08:22)
[2022-06-17] MEDS: polyethylene glycoL 3350 17 GM PACKET PO SCH (08:24)
[2022-06-18] MEDS: PANTOPRAZOLE 40 MG TABLET PO SCH (07:08)
[2022-06-18] MEDS: CLOPIDOGREL 75 MG TABLET PO SCH (08:37)
[2022-06-18] MEDS: polyethylene glycoL 3350 17 GM PACKET PO SCH (08:37)
[2022-06-18] MEDS: amLODIPine 5 MG TABLET PO SCH (08:37)
[2022-06-18] MEDS: lisinopriL 5 MG TABLET PO SCH (08:37)
[2022-06-18] MEDS: DOCUSATE SODIUM 250 MG CAPSULE PO SCH (08:38)
[2022-06-18] MEDS: ATORVASTATIN 40 MG TABLET PO SCH (08:40)
[2022-06-19] MEDS: PANTOPRAZOLE 40 MG TABLET PO SCH (06:42)
[2022-06-19] MEDS: DOCUSATE SODIUM 250 MG CAPSULE PO SCH (08:33)
[2022-06-19] MEDS: lisinopriL 5 MG TABLET PO SCH (08:33)
[2022-06-19] MEDS: CLOPIDOGREL 75 MG TABLET PO SCH (08:33)
[2022-06-19] MEDS: polyethylene glycoL 3350 17 GM PACKET PO SCH (08:33)
[2022-06-19] MEDS: ATORVASTATIN 40 MG TABLET PO SCH (08:33)
[2022-06-19] MEDS: amLODIPine 5 MG TABLET PO SCH (08:33)
--- NOTE | 2022-06-19 18:49 | ED Physician Documentation ---
ED Addendum - Addendum Addendum: 06/19/22 18:48 Patient has been ambulating in the halls states that he has somebody that assist him with this and he has done quite a bit of walking recently. Today he is in watching the 3 stages has no cares or worries. He expedited [facility] evaluation is continuing
[2022-06-20] MEDS: PANTOPRAZOLE 40 MG TABLET PO SCH (06:45)
--- NOTE | 2022-06-20 07:25 | ED Physician Documentation ---
ED Addendum - Addendum Addendum: 06/20/22 07:24 Patient seen and examined at bedside. He has no complaints and the nurse has no specific ongoing concerns. Vitals are basically within normal range. Social work notes reviewed, they are working hard on placement with the [facility].
[2022-06-20] MEDS: lisinopriL 5 MG TABLET PO SCH (08:35)
[2022-06-20] MEDS: ATORVASTATIN 40 MG TABLET PO SCH (08:35)
[2022-06-20] MEDS: CLOPIDOGREL 75 MG TABLET PO SCH (08:36)
[2022-06-20] MEDS: polyethylene glycoL 3350 17 GM PACKET PO SCH (08:36)
[2022-06-20] MEDS: DOCUSATE SODIUM 250 MG CAPSULE PO SCH (08:36)
[2022-06-20] MEDS: amLODIPine 5 MG TABLET PO SCH (08:36)
[2022-06-21] MEDS: PANTOPRAZOLE 40 MG TABLET PO SCH (06:27)
[2022-06-21] MEDS: DOCUSATE SODIUM 250 MG CAPSULE PO SCH (08:06)
[2022-06-21] MEDS: lisinopriL 5 MG TABLET PO SCH (08:06)
[2022-06-21] MEDS: ATORVASTATIN 40 MG TABLET PO SCH (08:06)
[2022-06-21] MEDS: CLOPIDOGREL 75 MG TABLET PO SCH (08:06)
[2022-06-21] MEDS: amLODIPine 5 MG TABLET PO SCH (08:09)
[2022-06-21] MEDS: polyethylene glycoL 3350 17 GM PACKET PO SCH (08:56)
[2022-06-22] MEDS: PANTOPRAZOLE 40 MG TABLET PO SCH (06:35)
[2022-06-22] MEDS: DOCUSATE SODIUM 250 MG CAPSULE PO SCH (08:30)
[2022-06-22] MEDS: lisinopriL 5 MG TABLET PO SCH (08:30)
[2022-06-22] MEDS: ATORVASTATIN 40 MG TABLET PO SCH (08:30)
[2022-06-22] MEDS: CLOPIDOGREL 75 MG TABLET PO SCH (08:30)
[2022-06-22] MEDS: amLODIPine 5 MG TABLET PO SCH (08:30)
[2022-06-22] MEDS: polyethylene glycoL 3350 17 GM PACKET PO SCH (08:31)
[2022-06-23] MEDS: PANTOPRAZOLE 40 MG TABLET PO SCH (05:24)
[2022-06-23] MEDS: amLODIPine 5 MG TABLET PO SCH (07:57)
[2022-06-23] MEDS: ATORVASTATIN 40 MG TABLET PO SCH (07:58)
[2022-06-23] MEDS: polyethylene glycoL 3350 17 GM PACKET PO SCH (07:58)
[2022-06-23] MEDS: lisinopriL 5 MG TABLET PO SCH (07:58)
[2022-06-23] MEDS: DOCUSATE SODIUM 250 MG CAPSULE PO SCH (07:58)
[2022-06-23] MEDS: CLOPIDOGREL 75 MG TABLET PO SCH (07:58)
--- NOTE | 2022-06-23 15:44 | ED Physician Documentation ---
ED Addendum - Addendum Addendum: 06/23/22 15:43 No reported problems on nursing notes. Morning report from staff revealed no change in current treatments needed.
[2022-06-24] MEDS: PANTOPRAZOLE 40 MG TABLET PO SCH (06:27)
[2022-06-24] MEDS: lisinopriL 5 MG TABLET PO SCH (08:01)
[2022-06-24] MEDS: amLODIPine 5 MG TABLET PO SCH (08:02)
[2022-06-24] MEDS: CLOPIDOGREL 75 MG TABLET PO SCH (08:02)
[2022-06-24] MEDS: polyethylene glycoL 3350 17 GM PACKET PO SCH (08:03)
[2022-06-24] MEDS: DOCUSATE SODIUM 250 MG CAPSULE PO SCH (08:05)
[2022-06-24] MEDS: ATORVASTATIN 40 MG TABLET PO SCH (08:05)
--- NOTE | 2022-06-24 16:02 | ED Physician Documentation ---
ED Addendum - Addendum Addendum: 06/24/22 16:01 Patient was seen briefly on the floor today. Review of his vital signs reviewed no worrisome abnormalities. Nursing staff report that he has been up ambulating easily with a walker. No recent falls. Taking his diet and medications well. No acute complaints. Social work continues to work with family and APS for appropriate disposition.
[2022-06-25] MEDS: PANTOPRAZOLE 40 MG TABLET PO SCH (06:52)
[2022-06-25] MEDS: lisinopriL 5 MG TABLET PO SCH (08:09)
[2022-06-25] MEDS: amLODIPine 5 MG TABLET PO SCH (08:09)
[2022-06-25] MEDS: DOCUSATE SODIUM 250 MG CAPSULE PO SCH (08:09)
[2022-06-25] MEDS: polyethylene glycoL 3350 17 GM PACKET PO SCH (08:09)
[2022-06-25] MEDS: CLOPIDOGREL 75 MG TABLET PO SCH (08:09)
[2022-06-25] MEDS: ATORVASTATIN 40 MG TABLET PO SCH (08:09)
[2022-06-26] MEDS: PANTOPRAZOLE 40 MG TABLET PO SCH (05:19)
[2022-06-26] MEDS: ATORVASTATIN 40 MG TABLET PO SCH (08:45)
[2022-06-26] MEDS: amLODIPine 5 MG TABLET PO SCH (08:45)
[2022-06-26] MEDS: lisinopriL 5 MG TABLET PO SCH (08:45)
[2022-06-26] MEDS: polyethylene glycoL 3350 17 GM PACKET PO SCH (08:46)
[2022-06-26] MEDS: CLOPIDOGREL 75 MG TABLET PO SCH (08:46)
[2022-06-26] MEDS: DOCUSATE SODIUM 250 MG CAPSULE PO SCH (08:46)
[2022-06-27] MEDS: PANTOPRAZOLE 40 MG TABLET PO SCH (05:21)
[2022-06-27] MEDS: DOCUSATE SODIUM 250 MG CAPSULE PO SCH (08:41)
[2022-06-27] MEDS: amLODIPine 5 MG TABLET PO SCH (08:42)
[2022-06-27] MEDS: CLOPIDOGREL 75 MG TABLET PO SCH (08:42)
[2022-06-27] MEDS: lisinopriL 5 MG TABLET PO SCH (08:42)
[2022-06-27] MEDS: ATORVASTATIN 40 MG TABLET PO SCH (08:42)
[2022-06-27] MEDS: polyethylene glycoL 3350 17 GM PACKET PO SCH (09:48)
--- NOTE | 2022-06-27 18:29 | ED Physician Documentation ---
ED Addendum - Addendum Addendum: 06/27/22 18:29 Seen and examined at bedside. Patient has no complaints. Nurse has no concerns. Still waiting on formal disposition.
[2022-06-28] MEDS: PANTOPRAZOLE 40 MG TABLET PO SCH (07:29)
[2022-06-28] MEDS: DOCUSATE SODIUM 250 MG CAPSULE PO SCH (08:17)
[2022-06-28] MEDS: CLOPIDOGREL 75 MG TABLET PO SCH (08:17)
[2022-06-28] MEDS: amLODIPine 5 MG TABLET PO SCH (08:17)
[2022-06-28] MEDS: ATORVASTATIN 40 MG TABLET PO SCH (08:18)
[2022-06-28] MEDS: lisinopriL 5 MG TABLET PO SCH (08:18)
[2022-06-28] MEDS: polyethylene glycoL 3350 17 GM PACKET PO SCH (08:24)
--- NOTE | 2022-06-28 19:54 | ED Physician Documentation ---
ED Addendum - Addendum Addendum: 06/28/22 19:54 Patient seen and examined at bedside. He has no complaints. The nurse states he felt cold earlier but now seems better. Vital signs reviewed, high normal blood pressures, pulse in the 50s. Reviewed social work notes from today, aids social worker has been working hard on this case for disposition. Nurse voiced no other specific needs for this patient.
[2022-06-29] MEDS: PANTOPRAZOLE 40 MG TABLET PO SCH (06:12)
--- NOTE | 2022-06-29 08:17 | ED Physician Documentation ---
ED Addendum - Addendum Addendum: 06/29/22 08:16 Patient 77-year-old male who has been in the hospital at 1500 hrs. awaiting placement. Evaluated independently at bedside at approximately 0815 hrs. Found to be resting comfortably and in no acute distress. Patient enjoying breakfast during my exam. Did complain of left lower extremity pain. Examination of the left lower extremity demonstrates strong palpable DP and PT pulses however there was some calf tenderness on exam. We will order lower extremity ultrasonography to rule out DVT 06/29/22 18:39 DVT study is reviewed, normal compressibility and no indications of deep venous thrombosis.
[2022-06-29] MEDS: ATORVASTATIN 40 MG TABLET PO SCH (08:43)
[2022-06-29] MEDS: amLODIPine 5 MG TABLET PO SCH (08:43)
[2022-06-29] MEDS: DOCUSATE SODIUM 250 MG CAPSULE PO SCH (08:44)
[2022-06-29] MEDS: lisinopriL 5 MG TABLET PO SCH (08:44)
[2022-06-29] MEDS: CLOPIDOGREL 75 MG TABLET PO SCH (08:44)
[2022-06-29] MEDS: polyethylene glycoL 3350 17 GM PACKET PO SCH (08:45)
--- NOTE | 2022-06-29 16:53 | Ultrasound Report ---
PROCEDURE: Duplex Ext Veins Left INDICATIONS: lft lower extermity pain TECHNIQUE: Real-time imaging, as well as color and pulse Doppler interrogation, were performed of the lower extr emity deep veins from the inguinal ligament to the popliteal fossa. COMPARISON: None. FINDINGS: The deep veins are normally compressible, and free of intraluminal thrombus. Color and pu lse Doppler demonstrate normal phasic intraluminal flow. There is normal augmentation response to di stal compression maneuver. IMPRESSION: No evidence of left lower, DVT. Reviewed by: Juan Sanchez MD on 06/29/2022 4:52 PM PDT Approved by: Juan Sanchez MD on 06/29/2022 4:52 PM PDT Station ID: [id number]
[2022-06-30] MEDS: PANTOPRAZOLE 40 MG TABLET PO SCH (05:20)
[2022-06-30] MEDS: amLODIPine 5 MG TABLET PO SCH (09:26)
[2022-06-30] MEDS: lisinopriL 5 MG TABLET PO SCH (09:26)
[2022-06-30] MEDS: DOCUSATE SODIUM 250 MG CAPSULE PO SCH (09:26)
[2022-06-30] MEDS: CLOPIDOGREL 75 MG TABLET PO SCH (09:27)
[2022-06-30] MEDS: ATORVASTATIN 40 MG TABLET PO SCH (09:27)
[2022-06-30] MEDS: polyethylene glycoL 3350 17 GM PACKET PO SCH (09:27)
--- NOTE | 2022-06-30 18:29 | ED Physician Documentation ---
ED Addendum - Addendum Addendum: 06/30/22 18:28 The patient signed out to me at change of shift, continuing to pend placement by social work. He has been boarding long-term on her inpatient unit while awaiting a residential placement. The patient was without acute issues or complaints today. He did not require any interventions beyond the scheduled medications and interventions. He has ordered. Nursing staff has not reported any other concerns for the patient. He has remained stable and will continue to board, pending placement. He is signed out to oncoming emergency physician at change of shift.
[2022-07-01] MEDS: PANTOPRAZOLE 40 MG TABLET PO SCH (05:34)
[2022-07-01] MEDS: polyethylene glycoL 3350 17 GM PACKET PO SCH (09:00)
[2022-07-01] MEDS: ATORVASTATIN 40 MG TABLET PO SCH (09:00)
[2022-07-01] MEDS: DOCUSATE SODIUM 250 MG CAPSULE PO SCH (09:00)
[2022-07-01] MEDS: CLOPIDOGREL 75 MG TABLET PO SCH (09:00)
[2022-07-01] MEDS: lisinopriL 5 MG TABLET PO SCH (09:02)
[2022-07-01] MEDS: amLODIPine 5 MG TABLET PO SCH (09:02)
--- NOTE | 2022-07-01 19:09 | ED Physician Documentation ---
ED Addendum - Addendum Addendum: 07/01/22 19:08 The patient was signed out to me at by off going emergency physician at change of shift, pending disposition by social work long-term care placement. The patient has been boarding under the emergency department care on the inpatient unit. The patient had no acute issues today and no interventions were required. Nursing staff reported no problems. The patient continued to eat his meals and receive his regularly scheduled medications. He is signed out to the oncoming emergency physician, continuing to pend final disposition per social work.
[2022-07-02] MEDS: PANTOPRAZOLE 40 MG TABLET PO SCH (06:38)
[2022-07-02] MEDS: CLOPIDOGREL 75 MG TABLET PO SCH (09:01)
[2022-07-02] MEDS: DOCUSATE SODIUM 250 MG CAPSULE PO SCH (09:01)
[2022-07-02] MEDS: lisinopriL 5 MG TABLET PO SCH (09:02)
[2022-07-02] MEDS: amLODIPine 5 MG TABLET PO SCH (09:02)
[2022-07-02] MEDS: ATORVASTATIN 40 MG TABLET PO SCH (09:02)
[2022-07-02] MEDS: polyethylene glycoL 3350 17 GM PACKET PO SCH (10:36)
--- NOTE | 2022-07-02 16:22 | ED Physician Documentation ---
ED Addendum - Addendum Addendum: 07/02/22 16:22 Seen and evaluated. No reports from nursing staff. Vital signs appropriate of last 24 hours. Tolerating a diet. Continues to be seen by social work pending appropriate placement and safe discharge plan.
[2022-07-03] MEDS: PANTOPRAZOLE 40 MG TABLET PO SCH (08:01)
[2022-07-03] MEDS: amLODIPine 5 MG TABLET PO SCH (08:03)
[2022-07-03] MEDS: DOCUSATE SODIUM 250 MG CAPSULE PO SCH (08:04)
[2022-07-03] MEDS: ATORVASTATIN 40 MG TABLET PO SCH (08:04)
[2022-07-03] MEDS: CLOPIDOGREL 75 MG TABLET PO SCH (08:04)
[2022-07-03] MEDS: lisinopriL 5 MG TABLET PO SCH (08:05)
[2022-07-03] MEDS: polyethylene glycoL 3350 17 GM PACKET PO SCH (08:08)
--- NOTE | 2022-07-03 14:43 | ED Physician Documentation ---
ED Addendum - Addendum Addendum: 07/03/22 14:43 No acute events overnight. Patient continues to board awaiting placement.
[2022-07-04] MEDS: PANTOPRAZOLE 40 MG TABLET PO SCH (07:01)
[2022-07-04] MEDS: lisinopriL 5 MG TABLET PO SCH (08:00)
[2022-07-04] MEDS: DOCUSATE SODIUM 250 MG CAPSULE PO SCH (08:00)
[2022-07-04] MEDS: ATORVASTATIN 40 MG TABLET PO SCH (08:00)
[2022-07-04] MEDS: CLOPIDOGREL 75 MG TABLET PO SCH (08:00)
[2022-07-04] MEDS: amLODIPine 5 MG TABLET PO SCH (08:00)
[2022-07-04] MEDS: polyethylene glycoL 3350 17 GM PACKET PO SCH (08:01)
--- NOTE | 2022-07-04 19:50 | ED Physician Documentation ---
ED Addendum - Addendum Addendum: 07/04/22 19:49 The patient was signed out to me at change of shift, continuing to pend long- term placement by social work, and continuing to board on the floors in ED patient. The patient reported no acute issues today, nor did the nursing staff caring for him. He took all his medications as ordered and ate his meals. He will be signed out to the oncoming emergency physician, continuing to pend final disposition.
[2022-07-05] MEDS: PANTOPRAZOLE 40 MG TABLET PO SCH (06:16)
[2022-07-05] MEDS: DOCUSATE SODIUM 250 MG CAPSULE PO SCH (08:48)
[2022-07-05] MEDS: ATORVASTATIN 40 MG TABLET PO SCH (08:48)
[2022-07-05] MEDS: lisinopriL 5 MG TABLET PO SCH (08:48)
[2022-07-05] MEDS: amLODIPine 5 MG TABLET PO SCH (08:48)
[2022-07-05] MEDS: CLOPIDOGREL 75 MG TABLET PO SCH (08:48)
[2022-07-05] MEDS: polyethylene glycoL 3350 17 GM PACKET PO SCH (08:49)
--- NOTE | 2022-07-05 12:28 | ED Physician Documentation ---
ED Addendum - Addendum Addendum: 07/05/22 12:28Talking with the nursing strip mine supervisor this morning, there is no reported problems from overnight shift etc. The patient is doing well on his current regimens. No change in treatment is needed.
[2022-07-06] MEDS: PANTOPRAZOLE 40 MG TABLET PO SCH (06:10)
[2022-07-06] MEDS: ATORVASTATIN 40 MG TABLET PO SCH (09:24)
[2022-07-06] MEDS: DOCUSATE SODIUM 250 MG CAPSULE PO SCH (09:24)
[2022-07-06] MEDS: amLODIPine 5 MG TABLET PO SCH (09:24)
[2022-07-06] MEDS: CLOPIDOGREL 75 MG TABLET PO SCH (09:25)
[2022-07-06] MEDS: lisinopriL 5 MG TABLET PO SCH (09:25)
[2022-07-06] MEDS: polyethylene glycoL 3350 17 GM PACKET PO SCH (09:26)
[2022-07-07] MEDS: PANTOPRAZOLE 40 MG TABLET PO SCH (06:28)
[2022-07-07] MEDS: lisinopriL 5 MG TABLET PO SCH (08:44)
[2022-07-07] MEDS: DOCUSATE SODIUM 250 MG CAPSULE PO SCH (08:44)
[2022-07-07] MEDS: polyethylene glycoL 3350 17 GM PACKET PO SCH (08:44)
[2022-07-07] MEDS: amLODIPine 5 MG TABLET PO SCH (08:44)
[2022-07-07] MEDS: ATORVASTATIN 40 MG TABLET PO SCH (08:44)
[2022-07-07] MEDS: CLOPIDOGREL 75 MG TABLET PO SCH (08:44)
[2022-07-08] MEDS: PANTOPRAZOLE 40 MG TABLET PO SCH (06:35)
[2022-07-08] MEDS: lisinopriL 5 MG TABLET PO SCH (08:04)
[2022-07-08] MEDS: CLOPIDOGREL 75 MG TABLET PO SCH (08:05)
[2022-07-08] MEDS: polyethylene glycoL 3350 17 GM PACKET PO SCH (08:05)
[2022-07-08] MEDS: ATORVASTATIN 40 MG TABLET PO SCH (08:05)
[2022-07-08] MEDS: DOCUSATE SODIUM 250 MG CAPSULE PO SCH (08:05)
[2022-07-08] MEDS: amLODIPine 5 MG TABLET PO SCH (08:05)
--- NOTE | 2022-07-08 12:46 | ED Physician Documentation ---
ED Addendum - Addendum Addendum: 07/08/22 12:46 Patient seen and examined at bedside. He is sitting up in a chair eating his lunch and watching an old movie. He is happy and has no complaints.
[2022-07-09] MEDS: PANTOPRAZOLE 40 MG TABLET PO SCH (06:34)
[2022-07-09] MEDS: amLODIPine 5 MG TABLET PO SCH (08:47)
[2022-07-09] MEDS: DOCUSATE SODIUM 250 MG CAPSULE PO SCH (08:47)
[2022-07-09] MEDS: lisinopriL 5 MG TABLET PO SCH (08:47)
[2022-07-09] MEDS: CLOPIDOGREL 75 MG TABLET PO SCH (08:47)
[2022-07-09] MEDS: ATORVASTATIN 40 MG TABLET PO SCH (08:47)
[2022-07-09] MEDS: polyethylene glycoL 3350 17 GM PACKET PO SCH (08:47)
--- NOTE | 2022-07-09 11:58 | ED Physician Documentation ---
ED Addendum - Addendum Addendum: 07/09/22 11:58 Patient seen and examined at the bedside. He appears exactly the same as yesterday, sitting up in a chair and watching an old movie while eating lunch. He voices no complaints. The RN was not available when I visited but I asked the UNION ORGANIZER to have her call me if she had concerns.
[2022-07-10] MEDS: PANTOPRAZOLE 40 MG TABLET PO SCH (06:07)
--- NOTE | 2022-07-10 07:52 | ED Physician Documentation ---
ED Addendum - Addendum Addendum: 07/10/22 07:52 Patient seen this morning at the bedside. He is sitting up at the bedside chair watching a show on the television. He denies having any complaints or concerns at this time. He states he is enjoying the meals And the view from his room. I met with his nurse who also voices no concerns or needs that require attention at this time.Patient remains boarding awaiting safe disposition.
[2022-07-10] MEDS: DOCUSATE SODIUM 250 MG CAPSULE PO SCH (08:34)
[2022-07-10] MEDS: ATORVASTATIN 40 MG TABLET PO SCH (08:34)
[2022-07-10] MEDS: polyethylene glycoL 3350 17 GM PACKET PO SCH (08:35)
[2022-07-10] MEDS: amLODIPine 5 MG TABLET PO SCH (08:35)
[2022-07-10] MEDS: lisinopriL 5 MG TABLET PO SCH (08:35)
[2022-07-10] MEDS: CLOPIDOGREL 75 MG TABLET PO SCH (08:35)
[2022-07-11] MEDS: PANTOPRAZOLE 40 MG TABLET PO SCH ×2 (06:50→08:11)
[2022-07-11] MEDS: amLODIPine 5 MG TABLET PO SCH (08:10)
[2022-07-11] MEDS: lisinopriL 5 MG TABLET PO SCH (08:10)
[2022-07-11] MEDS: ATORVASTATIN 40 MG TABLET PO SCH (08:11)
[2022-07-11] MEDS: DOCUSATE SODIUM 250 MG CAPSULE PO SCH (08:11)
[2022-07-11] MEDS: polyethylene glycoL 3350 17 GM PACKET PO SCH (08:13)
[2022-07-11] MEDS: CLOPIDOGREL 75 MG TABLET PO SCH (08:17)
--- NOTE | 2022-07-11 13:52 | ED Physician Documentation ---
ED Addendum - Addendum Addendum: 07/11/22 13:52 Patient doing well this morning. No complaints overnight. Still awaiting placement. Nursing staff states had a bowel movement this morning and ate breakfast. Patient has no complaints.
[2022-07-12] MEDS: PANTOPRAZOLE 40 MG TABLET PO SCH (07:07)
[2022-07-12] MEDS: lisinopriL 5 MG TABLET PO SCH (08:45)
[2022-07-12] MEDS: ATORVASTATIN 40 MG TABLET PO SCH (08:45)
[2022-07-12] MEDS: DOCUSATE SODIUM 250 MG CAPSULE PO SCH (08:45)
[2022-07-12] MEDS: CLOPIDOGREL 75 MG TABLET PO SCH (08:45)
[2022-07-12] MEDS: amLODIPine 5 MG TABLET PO SCH (08:45)
[2022-07-12] MEDS: polyethylene glycoL 3350 17 GM PACKET PO SCH (08:45)
--- NOTE | 2022-07-12 19:23 | ED Physician Documentation ---
ED Addendum - Addendum Addendum: 07/12/22 19:22 The patient was signed out to me at change of shift, continuing to board on her inpatient floor, pending long-term care placement. He had no new issues throughout the day. He took all of his medications as directed and ate his meals. He had no complaints. The patient is signed out to the oncoming emergency physician, continuing to pend final disposition.
[2022-07-13] MEDS: PANTOPRAZOLE 40 MG TABLET PO SCH (06:38)
[2022-07-13] MEDS: lisinopriL 5 MG TABLET PO SCH (08:10)
[2022-07-13] MEDS: CLOPIDOGREL 75 MG TABLET PO SCH (08:15)
[2022-07-13] MEDS: ATORVASTATIN 40 MG TABLET PO SCH (08:15)
[2022-07-13] MEDS: DOCUSATE SODIUM 250 MG CAPSULE PO SCH (08:15)
[2022-07-13] MEDS: amLODIPine 5 MG TABLET PO SCH (08:15)
[2022-07-13] MEDS: polyethylene glycoL 3350 17 GM PACKET PO SCH (08:24)
--- NOTE | 2022-07-13 08:30 | ED Physician Documentation ---
ED Addendum - Addendum Addendum: 07/13/22 08:29 Patient seen and examined at bedside. He is sitting up in a chair watching a movie eating his breakfast. Neither he nor his nurse who is at the bedside voiced concerns or necessities.
[2022-07-14] MEDS: PANTOPRAZOLE 40 MG TABLET PO SCH (06:47)
[2022-07-14] MEDS: amLODIPine 5 MG TABLET PO SCH (09:23)
[2022-07-14] MEDS: DOCUSATE SODIUM 250 MG CAPSULE PO SCH (09:23)
[2022-07-14] MEDS: ATORVASTATIN 40 MG TABLET PO SCH (09:23)
[2022-07-14] MEDS: lisinopriL 5 MG TABLET PO SCH (09:23)
[2022-07-14] MEDS: CLOPIDOGREL 75 MG TABLET PO SCH (09:24)
[2022-07-14] MEDS: polyethylene glycoL 3350 17 GM PACKET PO SCH (09:24)
[2022-07-15] MEDS: PANTOPRAZOLE 40 MG TABLET PO SCH (06:25)
[2022-07-15] MEDS: CLOPIDOGREL 75 MG TABLET PO SCH (08:29)
[2022-07-15] MEDS: amLODIPine 5 MG TABLET PO SCH (08:29)
[2022-07-15] MEDS: ATORVASTATIN 40 MG TABLET PO SCH (08:29)
[2022-07-15] MEDS: lisinopriL 5 MG TABLET PO SCH (08:29)
[2022-07-15] MEDS: DOCUSATE SODIUM 250 MG CAPSULE PO SCH (08:29)
[2022-07-15] MEDS: polyethylene glycoL 3350 17 GM PACKET PO SCH (08:30)
--- NOTE | 2022-07-15 16:28 | ED Physician Documentation ---
ED Addendum - Addendum Addendum: 07/15/22 16:28No reported problems or needs on morning report from nursing staff or in their notes. At this point presume continue regular diet and medications and activity.
[2022-07-16] MEDS: PANTOPRAZOLE 40 MG TABLET PO SCH (08:01)
[2022-07-16] MEDS: CLOPIDOGREL 75 MG TABLET PO SCH (09:45)
[2022-07-16] MEDS: amLODIPine 5 MG TABLET PO SCH (09:45)
[2022-07-16] MEDS: DOCUSATE SODIUM 250 MG CAPSULE PO SCH (09:45)
[2022-07-16] MEDS: polyethylene glycoL 3350 17 GM PACKET PO SCH (09:45)
[2022-07-16] MEDS: lisinopriL 5 MG TABLET PO SCH (09:46)
[2022-07-16] MEDS: ATORVASTATIN 40 MG TABLET PO SCH (09:46)
--- NOTE | 2022-07-16 11:52 | ED Physician Documentation ---
ED Addendum - Addendum Addendum: 07/16/22 11:51 No reported problems from nursing staff on morning report. Continue with current treatments and plans. No apparent updates on placement.
[2022-07-17] MEDS: PANTOPRAZOLE 40 MG TABLET PO SCH (06:23)
[2022-07-17] MEDS: polyethylene glycoL 3350 17 GM PACKET PO SCH (08:16)
[2022-07-17] MEDS: amLODIPine 5 MG TABLET PO SCH (08:17)
[2022-07-17] MEDS: ATORVASTATIN 40 MG TABLET PO SCH (08:17)
[2022-07-17] MEDS: DOCUSATE SODIUM 250 MG CAPSULE PO SCH (08:17)
[2022-07-17] MEDS: lisinopriL 5 MG TABLET PO SCH (08:17)
[2022-07-17] MEDS: CLOPIDOGREL 75 MG TABLET PO SCH (08:17)
--- NOTE | 2022-07-17 19:29 | ED Physician Documentation ---
ED Addendum - Addendum Addendum: 07/17/22 19:28 Social Work says that [facility] informed us that we were needing to talk with a different division or such regarding this. SW had placed call to that office. Otherwise no noted changes in status per nursing supervisor mold shop in morning report.
[2022-07-18] MEDS: PANTOPRAZOLE 40 MG TABLET PO SCH (06:38)
[2022-07-18] MEDS: CLOPIDOGREL 75 MG TABLET PO SCH (08:08)
[2022-07-18] MEDS: polyethylene glycoL 3350 17 GM PACKET PO SCH (08:08)
[2022-07-18] MEDS: DOCUSATE SODIUM 250 MG CAPSULE PO SCH (08:09)
[2022-07-18] MEDS: lisinopriL 5 MG TABLET PO SCH (08:09)
[2022-07-18] MEDS: amLODIPine 5 MG TABLET PO SCH (08:09)
[2022-07-18] MEDS: ATORVASTATIN 40 MG TABLET PO SCH (08:10)
--- NOTE | 2022-07-18 21:01 | ED Physician Documentation ---
ED Addendum - Addendum Addendum: 07/18/22 21:00 Patient may be on a new faster track for placement through the [facility]. Otherwise continuing with diet/meds/activities. No flags from nursing notes.
[2022-07-19] MEDS: PANTOPRAZOLE 40 MG TABLET PO SCH (06:19)
[2022-07-19] MEDS: amLODIPine 5 MG TABLET PO SCH (08:27)
[2022-07-19] MEDS: ATORVASTATIN 40 MG TABLET PO SCH (08:27)
[2022-07-19] MEDS: lisinopriL 5 MG TABLET PO SCH (08:28)
[2022-07-19] MEDS: DOCUSATE SODIUM 250 MG CAPSULE PO SCH (08:28)
[2022-07-19] MEDS: CLOPIDOGREL 75 MG TABLET PO SCH (08:28)
[2022-07-19] MEDS: polyethylene glycoL 3350 17 GM PACKET PO SCH (16:14)
--- NOTE | 2022-07-19 19:03 | ED Physician Documentation ---
ED Addendum - Addendum Addendum: 07/19/22 19:03 No acute changes on my shift. Patient continues to board awaiting placement. Nursing staff had no concerns.
[2022-07-20] MEDS: PANTOPRAZOLE 40 MG TABLET PO SCH (06:36)
[2022-07-20] MEDS: polyethylene glycoL 3350 17 GM PACKET PO SCH (08:18)
[2022-07-20] MEDS: DOCUSATE SODIUM 250 MG CAPSULE PO SCH (08:19)
[2022-07-20] MEDS: CLOPIDOGREL 75 MG TABLET PO SCH (08:19)
[2022-07-20] MEDS: amLODIPine 5 MG TABLET PO SCH (08:19)
[2022-07-20] MEDS: lisinopriL 5 MG TABLET PO SCH (08:19)
[2022-07-20] MEDS: ATORVASTATIN 40 MG TABLET PO SCH (08:19)
--- NOTE | 2022-07-20 15:56 | ED Physician Documentation ---
ED Addendum - Addendum Addendum: 07/20/22 15:55 No particular change in needs based on nursing contact centre supervisor report during morning report today. The patient is continuing on his medications, diet, activity. No change in therapy at this time.
[2022-07-21] MEDS: PANTOPRAZOLE 40 MG TABLET PO SCH (06:08)
[2022-07-21] MEDS: amLODIPine 5 MG TABLET PO SCH (08:37)
[2022-07-21] MEDS: ATORVASTATIN 40 MG TABLET PO SCH (08:37)
[2022-07-21] MEDS: CLOPIDOGREL 75 MG TABLET PO SCH (08:37)
[2022-07-21] MEDS: DOCUSATE SODIUM 250 MG CAPSULE PO SCH (08:37)
[2022-07-21] MEDS: lisinopriL 5 MG TABLET PO SCH (08:37)
[2022-07-21] MEDS: polyethylene glycoL 3350 17 GM PACKET PO SCH (08:38)
--- NOTE | 2022-07-21 16:24 | ED Physician Documentation ---
ED Addendum - Addendum Addendum: 07/21/22 16:23 No particular change in treatment suggested by nursing notes and report.
[2022-07-22] MEDS: PANTOPRAZOLE 40 MG TABLET PO SCH (06:36)
[2022-07-22] MEDS: ATORVASTATIN 40 MG TABLET PO SCH (09:39)
[2022-07-22] MEDS: DOCUSATE SODIUM 250 MG CAPSULE PO SCH (09:39)
[2022-07-22] MEDS: lisinopriL 5 MG TABLET PO SCH (09:39)
[2022-07-22] MEDS: amLODIPine 5 MG TABLET PO SCH (09:39)
[2022-07-22] MEDS: CLOPIDOGREL 75 MG TABLET PO SCH (09:40)
[2022-07-22] MEDS: polyethylene glycoL 3350 17 GM PACKET PO SCH (09:40)
[2022-07-22 10:57] LABS: BASOPHILS % (AUTO) 0.3 %; EOSINOPHILS # (AUTO) 0.3 10^3/uL (0.0-0.7); EOSINOPHILS % (AUTO) 4.3 %; HCT - HEMATOCRIT 38.7 % (42.0-52.0); LYMPHOCYTES # (AUTO) 1.3 10^3/uL (1.5-3.5); LYMPHOCYTES % (AUTO) 21.5 %; MEAN CORPUSCULAR HEMOGLOBIN 28.9 pg (27.0-31.0); MEAN CORPUSCULAR VOLUME 93.3 fL (80.0-94.0); MEAN PLATELET VOLUME 9.7 fL (7.4-11.4); MONOCYTES # (AUTO) 0.6 10^3/uL (0.0-1.0); MONOCYTES % (AUTO) 9.2 %; NEUTROPHILS % (AUTO) 64.2 %; PLT - PLATELET COUNT 216 10^3/uL (130-450); RED BLOOD COUNT 4.15 10^6/uL (4.70-6.10); RED CELL DISTRIBUTION WIDTH 13.8 % (12.0-15.0); WHITE BLOOD COUNT 6.2 x10^3/uL (4.8-10.8)
[2022-07-22 11:08] LABS: ALBUMIN 3.5 g/dL (3.2-5.5); ALKALINE PHOSPHATASE 57 IU/L (42-121); ALT ALANINE AMINOTRANSFERASE < 10 IU/L (10-60); AST ASPARTATE AMINOTRANSFERASE 12 IU/L (10-42); BILIRUBIN,TOTAL 0.3 mg/dL (0.2-1.0); BUN - BLOOD UREA NITROGEN 26 mg/dL (6-20); CALCIUM 8.9 mg/dL (8.5-10.3); CARBON DIOXIDE - CO2 28 mmol/L (21-32); CHLORIDE 112 mmol/L (101-111); CREATININE 1.1 mg/dL (0.6-1.2); GFR - MDRD 65 (>89); GLUCOSE 84 mg/dL (70-100); LIPASE 31 U/L (22-51); POTASSIUM 4.2 mmol/L (3.5-5.0); SODIUM 144 mmol/L (135-145); TOTAL PROTEIN 6.9 g/dL (6.7-8.2)
[2022-07-22 12:13] LABS: BILIRUBIN,URINE NEGATIVE (NEGATIVE); GLUCOSE, URINE (UA) NEGATIVE (NEGATIVE); KETONES,URINE (UA) NEGATIVE (NEGATIVE); LEUKOCYTE ESTERASE, URINE NEGATIVE (NEGATIVE); NITRITE,URINE NEGATIVE (NEGATIVE); OCCULT BLOOD,URINE NEGATIVE (NEGATIVE); PROTEIN,URINE NEGATIVE (NEGATIVE); UROBILINOGEN,URINE 0.2 (NORMAL) E.U./dL (NORMAL)
[2022-07-22 12:15] LABS: CLARITY,URINE CLEAR (CLEAR)
--- NOTE | 2022-07-22 18:25 | ED Physician Documentation ---
ED Addendum - Addendum Addendum: 07/22/22 18:24 The patient's nurse stated they had noticed some blood on his undergarment and sheet apparently with urine. He was not complaining of any dysuria per se. We can get a urine test as well as blood count and chemistry panel. Urinalysis came back showing no signs of infection. Blood count and chemistry panel are not changed from prior. We will watch and see if he has further symptoms.
[2022-07-23] MEDS: PANTOPRAZOLE 40 MG TABLET PO SCH (06:56)
[2022-07-23] MEDS: lisinopriL 5 MG TABLET PO SCH (07:58)
[2022-07-23] MEDS: DOCUSATE SODIUM 250 MG CAPSULE PO SCH (07:58)
[2022-07-23] MEDS: ATORVASTATIN 40 MG TABLET PO SCH (07:59)
[2022-07-23] MEDS: amLODIPine 5 MG TABLET PO SCH (07:59)
[2022-07-23] MEDS: polyethylene glycoL 3350 17 GM PACKET PO SCH (07:59)
[2022-07-23] MEDS: CLOPIDOGREL 75 MG TABLET PO SCH (07:59)
--- NOTE | 2022-07-23 08:47 | ED Physician Documentation ---
ED Addendum - Addendum Addendum: 07/23/22 08:46 No reported complaints overnight. Patient doing well today. Continues to board awaiting placement.
[2022-07-24] MEDS: PANTOPRAZOLE 40 MG TABLET PO SCH (06:55)
[2022-07-24] MEDS: CALCIUM CARBONATE CHEW 500 MG TABLET PO PRN (08:49)
[2022-07-24] MEDS: DOCUSATE SODIUM 250 MG CAPSULE PO SCH (08:49)
[2022-07-24] MEDS: ATORVASTATIN 40 MG TABLET PO SCH (08:49)
[2022-07-24] MEDS: lisinopriL 5 MG TABLET PO SCH (08:49)
[2022-07-24] MEDS: CLOPIDOGREL 75 MG TABLET PO SCH (08:49)
[2022-07-24] MEDS: amLODIPine 5 MG TABLET PO SCH (08:49)
[2022-07-24] MEDS: polyethylene glycoL 3350 17 GM PACKET PO SCH (08:50)
--- NOTE | 2022-07-24 12:39 | ED Physician Documentation ---
ED Addendum - Addendum Addendum: 07/24/22 12:39 No reported complaints overnight. Patient doing well today. Continues to board awaiting placement.
[2022-07-25] MEDS: PANTOPRAZOLE 40 MG TABLET PO SCH (06:30)
[2022-07-25] MEDS: lisinopriL 5 MG TABLET PO SCH (08:15)
[2022-07-25] MEDS: polyethylene glycoL 3350 17 GM PACKET PO SCH (08:16)
[2022-07-25] MEDS: amLODIPine 5 MG TABLET PO SCH (08:16)
[2022-07-25] MEDS: CLOPIDOGREL 75 MG TABLET PO SCH (08:16)
[2022-07-25] MEDS: ATORVASTATIN 40 MG TABLET PO SCH (08:16)
[2022-07-25] MEDS: DOCUSATE SODIUM 250 MG CAPSULE PO SCH (08:16)
--- NOTE | 2022-07-25 15:33 | ED Physician Documentation ---
ED Addendum - Addendum Addendum: 07/25/22 15:30 No particular needs identified on nursing rounds this morning. Continue with current treatment diet and plan. No words seen on nursing notes sorry social work notes about placement. Social work notes from 2 days ago discussed an issue of the patient's son still receiving [facility] phones and so the patient is not considered a homeless despite being in the emergency department and therefore does not necessarily hit highest priority for placement. Results are still in will in the works. 07/25/22 15:32
[2022-07-26] MEDS: PANTOPRAZOLE 40 MG TABLET PO SCH (06:42)
[2022-07-26] MEDS: DOCUSATE SODIUM 250 MG CAPSULE PO SCH (07:33)
[2022-07-26] MEDS: lisinopriL 5 MG TABLET PO SCH (07:33)
[2022-07-26] MEDS: amLODIPine 5 MG TABLET PO SCH (07:34)
[2022-07-26] MEDS: ATORVASTATIN 40 MG TABLET PO SCH (07:34)
[2022-07-26] MEDS: polyethylene glycoL 3350 17 GM PACKET PO SCH (07:34)
[2022-07-26] MEDS: CLOPIDOGREL 75 MG TABLET PO SCH (07:34)
--- NOTE | 2022-07-26 14:30 | ED Physician Documentation ---
ED Addendum - Addendum Addendum: 07/26/22 14:30 No acute problems identified on nursing during morning rounds. Maintain current treatment plan.
[2022-07-27] MEDS: PANTOPRAZOLE 40 MG TABLET PO SCH (06:43)
[2022-07-27] MEDS: amLODIPine 5 MG TABLET PO SCH (08:25)
[2022-07-27] MEDS: ATORVASTATIN 40 MG TABLET PO SCH (08:25)
[2022-07-27] MEDS: CLOPIDOGREL 75 MG TABLET PO SCH (08:25)
[2022-07-27] MEDS: DOCUSATE SODIUM 250 MG CAPSULE PO SCH (08:25)
[2022-07-27] MEDS: lisinopriL 5 MG TABLET PO SCH (08:25)
[2022-07-27] MEDS: polyethylene glycoL 3350 17 GM PACKET PO SCH (08:26)
[2022-07-28] MEDS: PANTOPRAZOLE 40 MG TABLET PO SCH (06:32)
[2022-07-28] MEDS: ATORVASTATIN 40 MG TABLET PO SCH (08:25)
[2022-07-28] MEDS: lisinopriL 5 MG TABLET PO SCH (08:25)
[2022-07-28] MEDS: polyethylene glycoL 3350 17 GM PACKET PO SCH (08:25)
[2022-07-28] MEDS: CLOPIDOGREL 75 MG TABLET PO SCH (08:25)
[2022-07-28] MEDS: amLODIPine 5 MG TABLET PO SCH (08:25)
[2022-07-28] MEDS: DOCUSATE SODIUM 250 MG CAPSULE PO SCH (08:25)
--- NOTE | 2022-07-28 09:45 | ED Physician Documentation ---
ED Addendum - Addendum Addendum: Patient remains boarding awaiting a safe disposition and placement. Social work continues to work on the case. No acute events overnight or issues to be addressed at this time.
[2022-07-29] MEDS: PANTOPRAZOLE 40 MG TABLET PO SCH (06:52)
[2022-07-29] MEDS: DOCUSATE SODIUM 250 MG CAPSULE PO SCH (08:51)
[2022-07-29] MEDS: CLOPIDOGREL 75 MG TABLET PO SCH (08:51)
[2022-07-29] MEDS: amLODIPine 5 MG TABLET PO SCH (08:51)
[2022-07-29] MEDS: polyethylene glycoL 3350 17 GM PACKET PO SCH (08:51)
[2022-07-29] MEDS: lisinopriL 5 MG TABLET PO SCH (08:51)
[2022-07-29] MEDS: ATORVASTATIN 40 MG TABLET PO SCH (08:51)
--- NOTE | 2022-07-29 19:15 | ED Physician Documentation ---
ED Addendum - Addendum Addendum: 07/29/22 19:14 Today John is watching MASH on TV and he thinks all the people in the show are goofing off. He has nothing new to report no new findings no new leads
[2022-07-30] MEDS: PANTOPRAZOLE 40 MG TABLET PO SCH (06:19)
[2022-07-30] MEDS: lisinopriL 5 MG TABLET PO SCH (08:29)
[2022-07-30] MEDS: polyethylene glycoL 3350 17 GM PACKET PO SCH (08:29)
[2022-07-30] MEDS: ATORVASTATIN 40 MG TABLET PO SCH (08:29)
[2022-07-30] MEDS: DOCUSATE SODIUM 250 MG CAPSULE PO SCH (08:29)
[2022-07-30] MEDS: CLOPIDOGREL 75 MG TABLET PO SCH (08:29)
[2022-07-30] MEDS: amLODIPine 5 MG TABLET PO SCH (08:29)
--- NOTE | 2022-07-30 17:44 | ED Physician Documentation ---
ED Addendum - Addendum Addendum: 07/30/22 17:43 Patient was signed out to me by off going emergency physician this morning at change of shift. He had an uneventful day with no complaints or issues. He took all his medications as ordered and ate his meals. He continues to board on the floor under emergency department care, pending long-term care placement and final disposition. He is signed out to the oncoming emergency physician at change of shift.
[2022-07-31] MEDS: PANTOPRAZOLE 40 MG TABLET PO SCH (06:33)
[2022-07-31] MEDS: CLOPIDOGREL 75 MG TABLET PO SCH (07:53)
[2022-07-31] MEDS: lisinopriL 5 MG TABLET PO SCH (07:53)
[2022-07-31] MEDS: amLODIPine 5 MG TABLET PO SCH (07:53)
[2022-07-31] MEDS: DOCUSATE SODIUM 250 MG CAPSULE PO SCH (07:54)
[2022-07-31] MEDS: polyethylene glycoL 3350 17 GM PACKET PO SCH (07:54)
[2022-07-31] MEDS: ATORVASTATIN 40 MG TABLET PO SCH (07:56)
--- NOTE | 2022-07-31 17:37 | ED Physician Documentation ---
ED Addendum - Addendum Addendum: 07/31/22 17:36 Sharee has no new news to report. Today he is watching the rifleman says that he enjoys these old westerns. He has been continuing to walk the halls.
[2022-08-01] MEDS: PANTOPRAZOLE 40 MG TABLET PO SCH (06:29)
[2022-08-01] MEDS: DOCUSATE SODIUM 250 MG CAPSULE PO SCH (08:57)
[2022-08-01] MEDS: amLODIPine 5 MG TABLET PO SCH (08:58)
[2022-08-01] MEDS: CLOPIDOGREL 75 MG TABLET PO SCH (08:58)
[2022-08-01] MEDS: polyethylene glycoL 3350 17 GM PACKET PO SCH (08:58)
[2022-08-01] MEDS: ATORVASTATIN 40 MG TABLET PO SCH (08:58)
[2022-08-01] MEDS: lisinopriL 5 MG TABLET PO SCH (08:58)
--- NOTE | 2022-08-01 16:57 | ED Physician Documentation ---
ED Addendum - Addendum Addendum: 08/01/22 16:57 Patient continues to board in the emergency department. Vital signs reviewed over the last 24 hours without acute abnormalities noted. Appears to be eating his diet well and walking in the hallways. Nursing staff is documented appropriate bowel movements. Patient Is continuing to board pending appropriate social work placement for what appears to be an older gentleman with mild dementia and no safe disposition/housing
[2022-08-02] MEDS: PANTOPRAZOLE 40 MG TABLET PO SCH (06:32)
[2022-08-02] MEDS: polyethylene glycoL 3350 17 GM PACKET PO SCH (08:10)
[2022-08-02] MEDS: DOCUSATE SODIUM 250 MG CAPSULE PO SCH (08:10)
[2022-08-02] MEDS: ATORVASTATIN 40 MG TABLET PO SCH (08:10)
[2022-08-02] MEDS: amLODIPine 5 MG TABLET PO SCH (08:10)
[2022-08-02] MEDS: CLOPIDOGREL 75 MG TABLET PO SCH (08:10)
[2022-08-02] MEDS: lisinopriL 5 MG TABLET PO SCH (08:11)
--- NOTE | 2022-08-02 15:20 | ED Physician Documentation ---
ED Addendum - Addendum Addendum: 08/02/22 15:19 Patient signed out to me at change of shift, pending continuing to pend long- term care placement. Social work continues to be working with his case. Patient's been without issues throughout the day and has had no requests. Nursing staff has not reported any problems. The patient is taking all his medications and eating his meals. He is signed out to the oncoming emergency physician, continuing to pend final disposition.
[2022-08-03] MEDS: PANTOPRAZOLE 40 MG TABLET PO SCH (06:50)
[2022-08-03] MEDS: ATORVASTATIN 40 MG TABLET PO SCH (09:07)
[2022-08-03] MEDS: DOCUSATE SODIUM 250 MG CAPSULE PO SCH (09:07)
[2022-08-03] MEDS: CLOPIDOGREL 75 MG TABLET PO SCH (09:08)
[2022-08-03] MEDS: amLODIPine 5 MG TABLET PO SCH (09:08)
[2022-08-03] MEDS: lisinopriL 5 MG TABLET PO SCH (09:08)
[2022-08-03] MEDS: polyethylene glycoL 3350 17 GM PACKET PO SCH (09:09)
--- NOTE | 2022-08-03 11:48 | ED Physician Documentation ---
ED Addendum - Addendum Addendum: 08/03/22 11:47 Nursing notes state the patient had an uneventful night. No requests or problems identified from nursing staff on morning report. Apparently had a shave this morning. Administrative note previously stated the patient was supposed to have had a [facility] representative meet with him yesterday. No word as yet on that. Presume social work will have an update and notes today. Or tomorrow. Currently continue current diet, activity, medications etc.
[2022-08-04] MEDS: PANTOPRAZOLE 40 MG TABLET PO SCH (06:17)
[2022-08-04] MEDS: amLODIPine 5 MG TABLET PO SCH (07:58)
[2022-08-04] MEDS: ATORVASTATIN 40 MG TABLET PO SCH (07:58)
[2022-08-04] MEDS: DOCUSATE SODIUM 250 MG CAPSULE PO SCH (07:58)
[2022-08-04] MEDS: CLOPIDOGREL 75 MG TABLET PO SCH (07:59)
[2022-08-04] MEDS: lisinopriL 5 MG TABLET PO SCH (07:59)
[2022-08-04] MEDS: polyethylene glycoL 3350 17 GM PACKET PO SCH (07:59)
--- NOTE | 2022-08-04 15:33 | ED Physician Documentation ---
ED Addendum - Addendum Addendum: 08/04/22 15:33 Patient was signed out to me at change of shift, pending long-term care placement as he has been 4 months. He is continuing to board under emergency department care on the medical floor. He had no issues today. He took all his scheduled medications and ate his meals. He has no complaints. He will continue to be followed by social work, pending placement. He is signed out to the oncoming emergency physician pending this
[2022-08-05] MEDS: PANTOPRAZOLE 40 MG TABLET PO SCH (05:25)
--- NOTE | 2022-08-05 07:42 | ED Physician Documentation ---
ED Addendum - Addendum Addendum: Patient remains boarding under emergency department status on the medical floor.Spoke with his nurse this morning and that she denies any acute issues or Needs that require attention at this time. Patient is resting, appears comfortable, no concerns at this time.
[2022-08-05] MEDS: lisinopriL 5 MG TABLET PO SCH (08:10)
[2022-08-05] MEDS: polyethylene glycoL 3350 17 GM PACKET PO SCH (08:10)
[2022-08-05] MEDS: DOCUSATE SODIUM 250 MG CAPSULE PO SCH (08:11)
[2022-08-05] MEDS: ATORVASTATIN 40 MG TABLET PO SCH (08:12)
[2022-08-05] MEDS: CLOPIDOGREL 75 MG TABLET PO SCH (08:12)
[2022-08-05] MEDS: amLODIPine 5 MG TABLET PO SCH (08:12)
[2022-08-05] MEDS: MAGIC MOUTHWASH 120 ML BOTTLE PO PRN (11:51)
[2022-08-05] MEDS: ACETAMINOPHEN 500 MG TABLET PO PRN (15:35)
[2022-08-06] MEDS: PANTOPRAZOLE 40 MG TABLET PO SCH (06:40)
--- NOTE | 2022-08-06 09:08 | ED Physician Documentation ---
ED Addendum - Addendum Addendum: 08/06/22 09:08 Patient had dental pain overnight. Had noticed resolved with Tylenol. No complaints this morning. No other acute events overnight. Patient continues to board awaiting placement.
[2022-08-06] MEDS: lisinopriL 5 MG TABLET PO SCH (09:45)
[2022-08-06] MEDS: polyethylene glycoL 3350 17 GM PACKET PO SCH (09:45)
[2022-08-06] MEDS: amLODIPine 5 MG TABLET PO SCH (09:46)
[2022-08-06] MEDS: DOCUSATE SODIUM 250 MG CAPSULE PO SCH (09:46)
[2022-08-06] MEDS: ATORVASTATIN 40 MG TABLET PO SCH (09:46)
[2022-08-06] MEDS: CLOPIDOGREL 75 MG TABLET PO SCH (09:46)
[2022-08-07] MEDS: PANTOPRAZOLE 40 MG TABLET PO SCH (05:50)
[2022-08-07] MEDS: DOCUSATE SODIUM 250 MG CAPSULE PO SCH (08:34)
[2022-08-07] MEDS: amLODIPine 5 MG TABLET PO SCH (08:34)
[2022-08-07] MEDS: CLOPIDOGREL 75 MG TABLET PO SCH (08:34)
[2022-08-07] MEDS: ATORVASTATIN 40 MG TABLET PO SCH (08:34)
[2022-08-07] MEDS: lisinopriL 5 MG TABLET PO SCH (08:34)
[2022-08-07] MEDS: polyethylene glycoL 3350 17 GM PACKET PO SCH (08:34)
--- NOTE | 2022-08-07 09:47 | ED Physician Documentation ---
ED Addendum - Addendum Addendum: Patient remains boarding under ED status on MedSurg floor. No acute events overnight. Social work continues to work on placement.
[2022-08-08] MEDS: PANTOPRAZOLE 40 MG TABLET PO SCH (05:28)
[2022-08-08] MEDS: amLODIPine 5 MG TABLET PO SCH (08:48)
[2022-08-08] MEDS: DOCUSATE SODIUM 250 MG CAPSULE PO SCH (08:48)
[2022-08-08] MEDS: CLOPIDOGREL 75 MG TABLET PO SCH (08:48)
[2022-08-08] MEDS: ATORVASTATIN 40 MG TABLET PO SCH (08:48)
[2022-08-08] MEDS: lisinopriL 5 MG TABLET PO SCH (08:48)
[2022-08-08] MEDS: polyethylene glycoL 3350 17 GM PACKET PO SCH (08:49)
[2022-08-08] MEDS ORDERED: LORazepam 2 MG/ML VIAL IVP STA ×2 (10:07→12:15)
--- NOTE | 2022-08-08 10:54 | ED Physician Documentation ---
ED Addendum - Addendum Addendum: 08/08/22 10:54 Patient seen and examined at bedside. The OMFS is going to come see him today and work on his teeth who asked me to order 1 mg of IV Ativan for anxiety prior to the procedure.
[2022-08-08] MEDS ORDERED: LIDOCAINE 2%-EPI 1:100000 20 ML MDV SUBQ ONE (12:28)
--- NOTE | 2022-08-08 13:11 | CONSULTATION NOTE ---
Referring Provider Name of Referring Provider:: Jesus Manuel Serrano Consult Date: 08/08/22 Chief Complaint - Chief Complaint Chief Complaint: Painful front teeth History of Present Illness - History of Present Illness HPI Comment/Other: John has been boarding in the ER/med/surg floor for several months. He recently began to complain of painful loose front teeth. OMFS was consulted for evaluation and management of this complaint. History - Past Medical History Cardiovascular: reports: Hypertension, High cholesterol Respiratory: reports: None Neuro: reports: CVA Endocrine/Autoimmune: reports: None GI: reports: None : reports: Other (Unknown) Psych: reports: Depression Other Past Medical History: Patient poor historian - Family & Social History Family History Comment/Other: Patient lives with his son Chino. He no longer drives. He is an avid fisherman. He is retired from [employer] Living Situation: With family Social History Notes: He quit smoking over 5 years ago. He drinks no alcohol. He uses no recreational or illicit drugs. - Substance History Use: Uses substance without health or social issues: NONE Meds/Allgy - Home Medications Home Medications: Ambulatory Orders Medication Instructions Recorded Confirmed amLODIPine [Norvasc] 1 tab ORAL DAILY 03/05/21 05/02/22 Apixaban [Eliquis] 1 tab PO BID 05/02/22 05/02/22 Atorvastatin Calcium 1 tab PO HS 05/02/22 05/02/22 Sertraline [Zoloft] 1 tab PO DAILY 05/02/22 05/02/22 Tamsulosin [Flomax] 1 cap PO HS 05/02/22 05/02/22 - Allergies Allergies/Adverse Reactions: Allergies Allergy/AdvReac Type Severity Reaction Status Date / Time No Known Drug Allergies Allergy Verified 04/26/22 11:56 Exam - Vital Signs Vital Signs: Vital Signs x48h Temp Pulse Resp BP Pulse Ox 08/08/22 08:26 36.8 C 54 L 18 142/82 H 96 - Physical Exam General Appearance: positive: No acute distress ENT: positive: Other (Bridge from tooth #8-10. Extreme mobility. No bleeding, drainage, swelling, or other evidence of infection.) Conclusion and Plan - Diagnosis Diagnosis: nonrestorable teeth #8,10 - Consultation Note Consultation Note: We anticipate removal of painful teeth #8,10. No restorative plan will be made during this hospitalization. He can follow up with a dentist after he is discharged from the hospital for replacement of the teeth. - Chlorhexidine mouthrinse BID x 7 days - Use gauze and pressure for hemostasis for the rest of the day - soft diet x 3 days Please call [phone] with any questions.
--- NOTE | 2022-08-08 13:31 | OPERATIVE REPORT ---
Operative Report - General Procedure Date: 08/08/22 Planned Procedure: Removal of teeth #8,10 Pre-Op Diagnosis: Nonrestorable teeth #8,9 Procedure Performed: Removal of teeth #8,9 Post Op Diagnosis: Nonrestorable teeth #8,9 - Procedure Note Primary Surgeon: Benji Means DDS Estimated Blood Loss (mL): 5 Indications: Reviewed the procedure with the patient and he consented to have the teeth removed. Encountered the patient in his bed on the med/surg floor. (He is boarding w/ the ER [employer] principal). Local anesthesia was acheived w/ 4cc of 2% lidocaine w/ 1:100K epi. Removed the teeth, #8,10. Used gauze and pressure for hemostasis Complications: none - Other Other Information/Narrative: Please call [phone] w/ any questions Soft diet x 3 days No hot food or drink x 3 days
[2022-08-08] MEDS ORDERED: oxyCODONE 5 MG TABLET PO STA (20:50)
[2022-08-09] MEDS: PANTOPRAZOLE 40 MG TABLET PO SCH (07:05)
[2022-08-09] MEDS: ACETAMINOPHEN 500 MG TABLET PO PRN (08:17)
[2022-08-09] MEDS: amLODIPine 5 MG TABLET PO SCH (09:06)
[2022-08-09] MEDS: ATORVASTATIN 40 MG TABLET PO SCH (09:06)
[2022-08-09] MEDS: DOCUSATE SODIUM 250 MG CAPSULE PO SCH (09:06)
[2022-08-09] MEDS: lisinopriL 5 MG TABLET PO SCH (09:06)
[2022-08-09] MEDS: CLOPIDOGREL 75 MG TABLET PO SCH (09:06)
[2022-08-09] MEDS: polyethylene glycoL 3350 17 GM PACKET PO SCH (09:06)
[2022-08-09] MEDS: MAGIC MOUTHWASH 120 ML BOTTLE PO PRN (11:27)
[2022-08-09] MEDS ORDERED: oxyCODONE 5 MG TABLET PO PRN (11:38)
--- NOTE | 2022-08-09 13:38 | ED Physician Documentation ---
ED Addendum - Addendum Addendum: 08/09/22 13:37 He was sleeping and not aroused for examination. Geetha the transition social worker is about to have him do a [facility] with [facility]. Earlier in the day the nurse reported he was having a lot of mouth pain after 2 dental extractions yesterday and as needed oxycodone for the next 3 days was ordered.
[2022-08-10] MEDS: PANTOPRAZOLE 40 MG TABLET PO SCH (06:22)
[2022-08-10] MEDS: polyethylene glycoL 3350 17 GM PACKET PO SCH (08:20)
[2022-08-10] MEDS: DOCUSATE SODIUM 250 MG CAPSULE PO SCH (08:20)
[2022-08-10] MEDS: ATORVASTATIN 40 MG TABLET PO SCH (08:22)
[2022-08-10] MEDS: lisinopriL 5 MG TABLET PO SCH (08:22)
[2022-08-10] MEDS: amLODIPine 5 MG TABLET PO SCH (08:22)
[2022-08-10] MEDS: CLOPIDOGREL 75 MG TABLET PO SCH (08:23)
[2022-08-10] MEDS: ACETAMINOPHEN 500 MG TABLET PO PRN (08:23)
--- NOTE | 2022-08-10 11:20 | ED Physician Documentation ---
ED Addendum - Addendum Addendum: 08/10/22 11:20 Patient seen and examined at bedside. He is sleeping comfortably. The nurse has no specific needs or concerns.
[2022-08-11] MEDS: PANTOPRAZOLE 40 MG TABLET PO SCH (06:48)
[2022-08-11] MEDS: DOCUSATE SODIUM 250 MG CAPSULE PO SCH (09:07)
[2022-08-11] MEDS: amLODIPine 5 MG TABLET PO SCH (09:07)
[2022-08-11] MEDS: lisinopriL 5 MG TABLET PO SCH (09:07)
[2022-08-11] MEDS: CLOPIDOGREL 75 MG TABLET PO SCH (09:07)
[2022-08-11] MEDS: polyethylene glycoL 3350 17 GM PACKET PO SCH (09:07)
[2022-08-11] MEDS: ATORVASTATIN 40 MG TABLET PO SCH (09:07)
--- NOTE | 2022-08-11 11:08 | ED Physician Documentation ---
ED Addendum - Addendum Addendum: 08/11/22 11:07 The patient was up and sitting and appeared comfortable. He had eaten breakfast already. He states he did not have any particular complaints at this point. Nursing for the day did not have any requests for the patient. No noted problems from overnight nursing notes. Morning rounds conference, the social work states it did come up that the patient does not have a POLST on file. Social work is going to call his POA which is his son and see if there is 1 on file at home and if not we will need to discuss it and come up with a CODE STATUS.
[2022-08-12] MEDS: PANTOPRAZOLE 40 MG TABLET PO SCH (06:26)
[2022-08-12] MEDS: ATORVASTATIN 40 MG TABLET PO SCH (08:35)
[2022-08-12] MEDS: polyethylene glycoL 3350 17 GM PACKET PO SCH (08:35)
[2022-08-12] MEDS: lisinopriL 5 MG TABLET PO SCH (08:35)
[2022-08-12] MEDS: CLOPIDOGREL 75 MG TABLET PO SCH (08:36)
[2022-08-12] MEDS: DOCUSATE SODIUM 250 MG CAPSULE PO SCH (08:36)
[2022-08-12] MEDS: amLODIPine 5 MG TABLET PO SCH (08:36)
--- NOTE | 2022-08-12 12:36 | ED Physician Documentation ---
ED Addendum - Addendum Addendum: 08/12/22 12:34 Social work had arranged a time for me to call the patient's son that was today at 10 AM. I called at 1010 (I was in with the patient at exactly 10:00). There was no answer and I did leave a voicemail asking the patient's son to call me back to discuss CODE STATUS/POLST form. Awaiting return call at this time. Otherwise no noted change or problems in the patient's status and diet. Activity as tolerated.
[2022-08-13] MEDS: PANTOPRAZOLE 40 MG TABLET PO SCH (06:23)
--- NOTE | 2022-08-13 07:54 | ED Physician Documentation ---
ED Addendum - Addendum Addendum: 08/13/22 07:53 Patient received a signout from outgoing physician, please see their do cumentation for further detail. In short patient 77-year-old male now in the emergency department greater than 100 days pending placement for frequent falls and inability to care for self. No acute complaints this morning. Found to be resting comfortably sitting at the side of his bed enjoying his breakfast tray and watching television.
[2022-08-13] MEDS: DOCUSATE SODIUM 250 MG CAPSULE PO SCH (08:37)
[2022-08-13] MEDS: CLOPIDOGREL 75 MG TABLET PO SCH (08:37)
[2022-08-13] MEDS: polyethylene glycoL 3350 17 GM PACKET PO SCH (08:37)
[2022-08-13] MEDS: ATORVASTATIN 40 MG TABLET PO SCH (08:37)
[2022-08-13] MEDS: amLODIPine 5 MG TABLET PO SCH (08:38)
[2022-08-13] MEDS: lisinopriL 5 MG TABLET PO SCH (08:38)
[2022-08-14] MEDS: PANTOPRAZOLE 40 MG TABLET PO SCH (06:27)
[2022-08-14] MEDS: lisinopriL 5 MG TABLET PO SCH (09:19)
[2022-08-14] MEDS: ATORVASTATIN 40 MG TABLET PO SCH (09:19)
[2022-08-14] MEDS: polyethylene glycoL 3350 17 GM PACKET PO SCH (09:19)
[2022-08-14] MEDS: amLODIPine 5 MG TABLET PO SCH (09:19)
[2022-08-14] MEDS: DOCUSATE SODIUM 250 MG CAPSULE PO SCH (09:19)
[2022-08-14] MEDS: CLOPIDOGREL 75 MG TABLET PO SCH (09:19)
--- NOTE | 2022-08-14 14:22 | ED Physician Documentation ---
ED Addendum - Addendum Addendum: Patient remains boarding under ED status awaiting placement and safe disposition. No acute events overnight. Social work continues to work on placement. Patient sitting in his bed watching a Western show on the television. He reports doing well with no current complaints. He states that his teeth are no longer bothering him and has been able to eat without any difficulty. I was unable to find his RN to see if there are any other needs that required attention but did speak with the unit charge nurse.
[2022-08-15] MEDS: PANTOPRAZOLE 40 MG TABLET PO SCH (06:30)
[2022-08-15] MEDS: DOCUSATE SODIUM 250 MG CAPSULE PO SCH (09:05)
[2022-08-15] MEDS: lisinopriL 5 MG TABLET PO SCH (09:05)
[2022-08-15] MEDS: polyethylene glycoL 3350 17 GM PACKET PO SCH (09:05)
[2022-08-15] MEDS: ATORVASTATIN 40 MG TABLET PO SCH (09:05)
[2022-08-15] MEDS: amLODIPine 5 MG TABLET PO SCH (09:05)
[2022-08-15] MEDS: CLOPIDOGREL 75 MG TABLET PO SCH (09:05)
--- NOTE | 2022-08-15 09:21 | ED Physician Documentation ---
ED Addendum - Addendum Addendum: Pt remains boarding under ED status awaiting placement. Patient is seen in his room. He is sitting at bedside chair and has just enjoyed his breakfast. He states that he has everything he needs denies any current complaints or concerns. He is watching a show. Unable to find his nurse to discuss if there are needs from their side.
[2022-08-16] MEDS: PANTOPRAZOLE 40 MG TABLET PO SCH (07:07)
[2022-08-16] MEDS: polyethylene glycoL 3350 17 GM PACKET PO SCH (09:28)
[2022-08-16] MEDS: CLOPIDOGREL 75 MG TABLET PO SCH (09:28)
[2022-08-16] MEDS: amLODIPine 5 MG TABLET PO SCH (09:28)
[2022-08-16] MEDS: ATORVASTATIN 40 MG TABLET PO SCH (09:28)
[2022-08-16] MEDS: DOCUSATE SODIUM 250 MG CAPSULE PO SCH (09:28)
[2022-08-16] MEDS: lisinopriL 5 MG TABLET PO SCH (09:29)
--- NOTE | 2022-08-16 09:42 | ED Physician Documentation ---
ED Addendum - Addendum Addendum: 08/16/22 09:41 Patient seen and examined at bedside. He is watching a movie. He has no specific complaints. Vital signs reviewed and unremarkable. Last social work note from August 11 reviewed.
--- NOTE | 2022-08-16 12:13 | ED Physician Documentation ---
ED Addendum - Addendum Addendum: 08/16/22 12:13 Took a fall today while brushing his teeth. PT was reportedly in the room and kind of helped him to the ground. He remembers it and does not feel injured. He has no tenderness of his C-spine. It is reported to me that his head was not hit.
[2022-08-17] MEDS: PANTOPRAZOLE 40 MG TABLET PO SCH (06:48)
[2022-08-17] MEDS ORDERED: HYDROCORTISONE 1% CREAM 28 GM TUBE TOP PRN (08:26)
[2022-08-17] MEDS ORDERED: diphenhydrAMINE 25 MG CAPSULE PO PRN (08:28)
--- NOTE | 2022-08-17 08:32 | ED Physician Documentation ---
ED Addendum - Addendum Addendum: Patient evaluated at the bedside. He had a fall yesterday and denies any pain or concerns from the fall. His RN reported noticing a new rash on the left side of his face today that patient describes as itching.On exam patient has a patchy areas of raised erythema to the left jawline. There are no vesicles or blistering suggestive of shingles. Patient denies any burning or pain to the area.He does have mild erythema and dryness to the face In his baltazar line.No fluctuance to suggest abscess. Does not appear to be cellulitic at this time.Discussed with RN that we will continue to keep an eye on this and she should notify us of any worsening. For the time being we will try h ydrocortisone cream and Benadryl for itching.
[2022-08-17] MEDS: amLODIPine 5 MG TABLET PO SCH (09:18)
[2022-08-17] MEDS: CLOPIDOGREL 75 MG TABLET PO SCH (09:18)
[2022-08-17] MEDS: ATORVASTATIN 40 MG TABLET PO SCH (09:18)
[2022-08-17] MEDS: lisinopriL 5 MG TABLET PO SCH (09:18)
[2022-08-17] MEDS: DOCUSATE SODIUM 250 MG CAPSULE PO SCH (09:18)
[2022-08-17] MEDS: polyethylene glycoL 3350 17 GM PACKET PO SCH (09:19)
[2022-08-18] MEDS: PANTOPRAZOLE 40 MG TABLET PO SCH (06:06)
[2022-08-18] MEDS: CLOPIDOGREL 75 MG TABLET PO SCH (09:24)
[2022-08-18] MEDS: ATORVASTATIN 40 MG TABLET PO SCH (09:24)
[2022-08-18] MEDS: lisinopriL 5 MG TABLET PO SCH (09:24)
[2022-08-18] MEDS: amLODIPine 5 MG TABLET PO SCH (09:24)
[2022-08-18] MEDS: DOCUSATE SODIUM 250 MG CAPSULE PO SCH (09:24)
[2022-08-18] MEDS: polyethylene glycoL 3350 17 GM PACKET PO SCH (09:24)
[2022-08-19] MEDS: PANTOPRAZOLE 40 MG TABLET PO SCH (07:00)
[2022-08-19] MEDS: lisinopriL 5 MG TABLET PO SCH (08:35)
[2022-08-19] MEDS: polyethylene glycoL 3350 17 GM PACKET PO SCH (08:39)
[2022-08-19] MEDS: amLODIPine 5 MG TABLET PO SCH (08:40)
[2022-08-19] MEDS: ATORVASTATIN 40 MG TABLET PO SCH (08:40)
[2022-08-19] MEDS: CLOPIDOGREL 75 MG TABLET PO SCH (08:40)
[2022-08-19] MEDS: DOCUSATE SODIUM 250 MG CAPSULE PO SCH (08:41)
--- NOTE | 2022-08-19 17:52 | ED Physician Documentation ---
ED Addendum - Addendum Addendum: 08/19/22 17:52 Patient continues to board pending social work placement. Vital signs reviewed without any acute worrisome abnormalities. Per nursing staff he is continuing to take his diet well with bowel movements. No acute complaints or concerns noted today
--- NOTE | 2022-08-19 18:50 | ED Physician Documentation ---
ED Addendum - Addendum Addendum: 08/19/22 18:49 The patient was signed out to me at change of shift, continuing to board under the ED on the medical floor, pending long-term care placement. He had no acute issues during the day. He took all his medications as directed and ate his meals. Nursing staff reported no issues. The patient is signed out to the oncoming emergency physician, continuing to pend placement and continuing to be followed by social work.
[2022-08-20] MEDS: PANTOPRAZOLE 40 MG TABLET PO SCH (07:49)
[2022-08-20] MEDS: ATORVASTATIN 40 MG TABLET PO SCH (10:18)
[2022-08-20] MEDS: CLOPIDOGREL 75 MG TABLET PO SCH (10:18)
[2022-08-20] MEDS: amLODIPine 5 MG TABLET PO SCH (10:19)
[2022-08-20] MEDS: lisinopriL 5 MG TABLET PO SCH (10:19)
[2022-08-20] MEDS: polyethylene glycoL 3350 17 GM PACKET PO SCH (10:21)
[2022-08-20] MEDS: DOCUSATE SODIUM 250 MG CAPSULE PO SCH (10:21)
--- NOTE | 2022-08-20 14:41 | ED Physician Documentation ---
ED Addendum - Addendum Addendum: Patient remains boarding under ED status. Awaiting placement by social work. No acute events overnight. Question regarding patient's CODE STATUS this Has not been addressed yet while he has been here. Dr. Ansari did try to reach out to the patient's son a week or so ago but son did not answer. I will try today. 08/20/22 14:41 D/W Chino Lipscomb (pt's son and DPOA) Regarding CODE STATUS. We discussed her rec measures such as CPR and intubation and ventilators. He states that at this point he feels that his father would not want any heroic measures and would like him to be DNR/DNI. I have updated patient's CODE STATUS.
[2022-08-21] MEDS: PANTOPRAZOLE 40 MG TABLET PO SCH (07:01)
--- NOTE | 2022-08-21 07:29 | ED Physician Documentation ---
ED Addendum - Addendum Addendum: 08/21/22 07:29 He was seen and examined at the bedside. He is sitting up watching cartoons. He has no specific complaints. Vital signs reviewed, for the most part has had pulse rates in the high 70s, some borderline high blood pressures but nothing that would merit specific treatment. Note made from Dr. Robertson's note from yesterday that he is now confirmed to be DNR/DNI. Still awaiting long-term placement.
[2022-08-21] MEDS: lisinopriL 5 MG TABLET PO SCH (08:30)
[2022-08-21] MEDS: ATORVASTATIN 40 MG TABLET PO SCH (08:30)
[2022-08-21] MEDS: CLOPIDOGREL 75 MG TABLET PO SCH (08:31)
[2022-08-21] MEDS: amLODIPine 5 MG TABLET PO SCH (08:31)
[2022-08-21] MEDS: DOCUSATE SODIUM 250 MG CAPSULE PO SCH (12:48)
[2022-08-21] MEDS: polyethylene glycoL 3350 17 GM PACKET PO SCH (12:48)
[2022-08-22] MEDS: PANTOPRAZOLE 40 MG TABLET PO SCH (06:14)
[2022-08-22] MEDS: lisinopriL 5 MG TABLET PO SCH (09:27)
[2022-08-22] MEDS: CLOPIDOGREL 75 MG TABLET PO SCH (09:27)
[2022-08-22] MEDS: ATORVASTATIN 40 MG TABLET PO SCH (09:27)
[2022-08-22] MEDS: polyethylene glycoL 3350 17 GM PACKET PO SCH (09:27)
[2022-08-22] MEDS: DOCUSATE SODIUM 250 MG CAPSULE PO SCH (09:27)
[2022-08-22] MEDS: amLODIPine 5 MG TABLET PO SCH (09:28)
--- NOTE | 2022-08-22 15:53 | ED Physician Documentation ---
ED Addendum - Addendum Addendum: 08/22/22 15:52 The patient was signed out to me at change of shift, continuing to pend long- term care facility placement. He was without complaints today and had no issues reported by nursing staff. He took all his medications as directed and ate his food. He is signed out to the oncoming emergency physician, continuing to pend placement. Social work will continue to be involved with his case.
[2022-08-23] MEDS: PANTOPRAZOLE 40 MG TABLET PO SCH (06:09)
[2022-08-23] MEDS: polyethylene glycoL 3350 17 GM PACKET PO SCH (08:30)
[2022-08-23] MEDS: DOCUSATE SODIUM 250 MG CAPSULE PO SCH (08:30)
[2022-08-23] MEDS: lisinopriL 5 MG TABLET PO SCH (08:31)
[2022-08-23] MEDS: CLOPIDOGREL 75 MG TABLET PO SCH (08:31)
[2022-08-23] MEDS: amLODIPine 5 MG TABLET PO SCH (08:32)
[2022-08-23] MEDS: ATORVASTATIN 40 MG TABLET PO SCH (08:32)
--- NOTE | 2022-08-23 18:23 | ED Physician Documentation ---
ED Addendum - Addendum Addendum: 08/23/22 18:22 The patient was signed out to me at change of shift, continuing to board on the medical floor under the care of of ED physicians and floor nurses, and continuing to pend long-term care placement. The patient had no issues throughout the day. He took all his medications and ate his food. The nursing staff did not report any new issues. The patient is signed out to the oncoming emergency physician, continuing to pend final disposition.
[2022-08-24] MEDS: PANTOPRAZOLE 40 MG TABLET PO SCH (06:27)
[2022-08-24] MEDS: polyethylene glycoL 3350 17 GM PACKET PO SCH (07:58)
[2022-08-24] MEDS: ATORVASTATIN 40 MG TABLET PO SCH (07:58)
[2022-08-24] MEDS: DOCUSATE SODIUM 250 MG CAPSULE PO SCH (07:58)
[2022-08-24] MEDS: lisinopriL 5 MG TABLET PO SCH (07:58)
[2022-08-24] MEDS: CLOPIDOGREL 75 MG TABLET PO SCH (07:58)
[2022-08-24] MEDS: amLODIPine 5 MG TABLET PO SCH (07:58)
--- NOTE | 2022-08-24 08:52 | ED Physician Documentation ---
ED Addendum - Addendum Addendum: Patient 77-year-old male who continues to board pending placement and safe discharge plan. Evaluated independently at approximately 0730 hrs. Found to be resting comfortably and in no acute distress. Sitting up at the side of his bed enjoying his meal tray. No acute events overnight. We will continue to monitor. 08/24/22 08:51
[2022-08-25] MEDS: PANTOPRAZOLE 40 MG TABLET PO SCH (05:50)
[2022-08-25] MEDS: CLOPIDOGREL 75 MG TABLET PO SCH (08:48)
[2022-08-25] MEDS: ATORVASTATIN 40 MG TABLET PO SCH (08:48)
[2022-08-25] MEDS: lisinopriL 5 MG TABLET PO SCH (08:48)
[2022-08-25] MEDS: amLODIPine 5 MG TABLET PO SCH (08:48)
[2022-08-25] MEDS: DOCUSATE SODIUM 250 MG CAPSULE PO SCH (08:48)
[2022-08-25] MEDS: polyethylene glycoL 3350 17 GM PACKET PO SCH (08:49)
--- NOTE | 2022-08-25 18:32 | ED Physician Documentation ---
ED Addendum - Addendum Addendum: 08/25/22 18:31 No reports of problems on morning rounds this morning with nursing sort operations supervisor. Nursing notes report normal output with stools. No other problems noted. Continue current medications and diet. If not see any social work notes from today. Placement is still an ongoing process.
[2022-08-26] MEDS: PANTOPRAZOLE 40 MG TABLET PO SCH (06:06)
[2022-08-26] MEDS: lisinopriL 5 MG TABLET PO SCH (08:50)
[2022-08-26] MEDS: ATORVASTATIN 40 MG TABLET PO SCH (08:51)
[2022-08-26] MEDS: DOCUSATE SODIUM 250 MG CAPSULE PO SCH (08:51)
[2022-08-26] MEDS: polyethylene glycoL 3350 17 GM PACKET PO SCH (08:51)
[2022-08-26] MEDS: amLODIPine 5 MG TABLET PO SCH (08:51)
[2022-08-26] MEDS: CLOPIDOGREL 75 MG TABLET PO SCH (08:51)
--- NOTE | 2022-08-26 12:38 | ED Physician Documentation ---
ED Addendum - Addendum Addendum: 08/26/22 12:37 No reported problems from nursing rounds. Social work very states the patient still has not a POLST form more CODE STATUS. I had been discussed couple of weeks ago and I had called the patient's son who did not return the voicemail even though it was a scheduled phone consult time. Apparently the issue had not been addressed in the last couple of weeks. Social work states they will call the patient son again to schedule another phone consult time to discuss CODE STATUS.
[2022-08-27] MEDS: PANTOPRAZOLE 40 MG TABLET PO SCH (06:02)
[2022-08-27] MEDS: lisinopriL 5 MG TABLET PO SCH (08:11)
[2022-08-27] MEDS: DOCUSATE SODIUM 250 MG CAPSULE PO SCH (08:11)
[2022-08-27] MEDS: amLODIPine 5 MG TABLET PO SCH (08:12)
[2022-08-27] MEDS: ATORVASTATIN 40 MG TABLET PO SCH (08:12)
[2022-08-27] MEDS: polyethylene glycoL 3350 17 GM PACKET PO SCH (08:12)
[2022-08-27] MEDS: CLOPIDOGREL 75 MG TABLET PO SCH (08:12)
--- NOTE | 2022-08-27 09:43 | ED Physician Documentation ---
ED Addendum - Addendum Addendum: 08/27/22 09:42 I went to the room to talk with the patient. His caregiver was in the room with him as well. They state he had just finished his morning baths/skin cleansing. No reports of problems. At this point he was settled in bed and watching some TV and was about to eat his breakfast. Asked if there was any problems he had or things we could change and he said he was okay.
[2022-08-28] MEDS: PANTOPRAZOLE 40 MG TABLET PO SCH (06:31)
[2022-08-28] MEDS: DOCUSATE SODIUM 250 MG CAPSULE PO SCH (08:23)
[2022-08-28] MEDS: lisinopriL 5 MG TABLET PO SCH (08:23)
[2022-08-28] MEDS: amLODIPine 5 MG TABLET PO SCH (08:23)
[2022-08-28] MEDS: CLOPIDOGREL 75 MG TABLET PO SCH (08:23)
[2022-08-28] MEDS: ATORVASTATIN 40 MG TABLET PO SCH (08:23)
[2022-08-28] MEDS: polyethylene glycoL 3350 17 GM PACKET PO SCH (08:24)
--- NOTE | 2022-08-28 12:54 | ED Physician Documentation ---
ED Addendum - Addendum Addendum: 08/28/22 12:54 Patient seen and examined at bedside. He is watching old movies. He has no complaints.
[2022-08-29] MEDS: PANTOPRAZOLE 40 MG TABLET PO SCH (06:57)
[2022-08-29] MEDS: CLOPIDOGREL 75 MG TABLET PO SCH (09:12)
[2022-08-29] MEDS: lisinopriL 5 MG TABLET PO SCH (09:12)
[2022-08-29] MEDS: ATORVASTATIN 40 MG TABLET PO SCH (09:12)
[2022-08-29] MEDS: polyethylene glycoL 3350 17 GM PACKET PO SCH (09:12)
[2022-08-29] MEDS: DOCUSATE SODIUM 250 MG CAPSULE PO SCH (09:12)
[2022-08-29] MEDS: amLODIPine 5 MG TABLET PO SCH (09:13)
--- NOTE | 2022-08-29 17:02 | ED Physician Documentation ---
ED Addendum - Addendum Addendum: 08/29/22 17:02 Seen at the bedside. He was sitting up eating dinner. He has no complaints.
[2022-08-30] MEDS: PANTOPRAZOLE 40 MG TABLET PO SCH (06:36)
[2022-08-30] MEDS: ATORVASTATIN 40 MG TABLET PO SCH (10:34)
[2022-08-30] MEDS: CLOPIDOGREL 75 MG TABLET PO SCH (10:34)
[2022-08-30] MEDS: DOCUSATE SODIUM 250 MG CAPSULE PO SCH (10:35)
[2022-08-30] MEDS: lisinopriL 5 MG TABLET PO SCH (10:35)
[2022-08-30] MEDS: amLODIPine 5 MG TABLET PO SCH (10:35)
[2022-08-30] MEDS: polyethylene glycoL 3350 17 GM PACKET PO SCH (10:36)
--- NOTE | 2022-08-30 12:08 | ED Physician Documentation ---
ED Addendum - Addendum Addendum: Patient remains boarding Under ED status awaiting placement. No acute events overnight.
[2022-08-31] MEDS: PANTOPRAZOLE 40 MG TABLET PO SCH (06:40)
[2022-08-31] MEDS: CLOPIDOGREL 75 MG TABLET PO SCH (09:05)
[2022-08-31] MEDS: amLODIPine 5 MG TABLET PO SCH (09:05)
[2022-08-31] MEDS: ATORVASTATIN 40 MG TABLET PO SCH (09:05)
[2022-08-31] MEDS: lisinopriL 5 MG TABLET PO SCH (09:06)
[2022-08-31] MEDS: DOCUSATE SODIUM 250 MG CAPSULE PO SCH (09:06)
[2022-08-31] MEDS: polyethylene glycoL 3350 17 GM PACKET PO SCH (09:07)
--- NOTE | 2022-08-31 14:39 | ED Physician Documentation ---
ED Addendum - Addendum Addendum: Patient remains boarding under ED status awaiting placement. Last social work note is from 08/26. No acute issues overnight.
[2022-09-01] MEDS: PANTOPRAZOLE 40 MG TABLET PO SCH (07:43)
[2022-09-01] MEDS: DOCUSATE SODIUM 250 MG CAPSULE PO SCH (08:14)
[2022-09-01] MEDS: amLODIPine 5 MG TABLET PO SCH (08:14)
[2022-09-01] MEDS: lisinopriL 5 MG TABLET PO SCH (08:14)
[2022-09-01] MEDS: ATORVASTATIN 40 MG TABLET PO SCH (08:15)
[2022-09-01] MEDS: CLOPIDOGREL 75 MG TABLET PO SCH (08:15)
[2022-09-01] MEDS: polyethylene glycoL 3350 17 GM PACKET PO SCH (08:18)
--- NOTE | 2022-09-01 12:42 | ED Physician Documentation ---
ED Addendum - Addendum Addendum: 09/01/22 12:41 No problems raised on morning rounds from nursing staff. Recent notes have shown normal care intake and output. No change in therapy indicated at this time.
[2022-09-02] MEDS: PANTOPRAZOLE 40 MG TABLET PO SCH (06:31)
[2022-09-02] MEDS: polyethylene glycoL 3350 17 GM PACKET PO SCH (08:49)
[2022-09-02] MEDS: ATORVASTATIN 40 MG TABLET PO SCH (08:49)
[2022-09-02] MEDS: lisinopriL 5 MG TABLET PO SCH (08:49)
[2022-09-02] MEDS: DOCUSATE SODIUM 250 MG CAPSULE PO SCH (08:49)
[2022-09-02] MEDS: amLODIPine 5 MG TABLET PO SCH (08:49)
[2022-09-02] MEDS: CLOPIDOGREL 75 MG TABLET PO SCH (08:49)
--- NOTE | 2022-09-02 10:32 | ED Physician Documentation ---
ED Addendum - Addendum Addendum: 09/02/22 10:31 I met with the patient in his room. He was sitting up and had just had breakfast. He is watching [employer]. I admire the view from his window and he said it was very relaxing to be able to look out. He did not have any complaints. Plan to continue current treatments and therapy. Still awaiting placement. The hospital aid asked about being able to have the patient more ambulatory out of the room more brief walks outside. I will ask at rounds.
[2022-09-03] MEDS: PANTOPRAZOLE 40 MG TABLET PO SCH (06:07)
[2022-09-03] MEDS: ATORVASTATIN 40 MG TABLET PO SCH (08:12)
[2022-09-03] MEDS: lisinopriL 5 MG TABLET PO SCH (08:12)
[2022-09-03] MEDS: DOCUSATE SODIUM 250 MG CAPSULE PO SCH (08:12)
[2022-09-03] MEDS: CLOPIDOGREL 75 MG TABLET PO SCH (08:12)
[2022-09-03] MEDS: polyethylene glycoL 3350 17 GM PACKET PO SCH (08:12)
[2022-09-03] MEDS: amLODIPine 5 MG TABLET PO SCH (08:12)
--- NOTE | 2022-09-03 15:45 | ED Physician Documentation ---
ED Addendum - Addendum Addendum: 09/03/22 15:44 No concerns noted from nursing notes/ morning round. Continue current treatment plan.
[2022-09-04] MEDS: PANTOPRAZOLE 40 MG TABLET PO SCH (06:32)
[2022-09-04] MEDS: amLODIPine 5 MG TABLET PO SCH (08:31)
[2022-09-04] MEDS: DOCUSATE SODIUM 250 MG CAPSULE PO SCH (08:31)
[2022-09-04] MEDS: CLOPIDOGREL 75 MG TABLET PO SCH (08:31)
[2022-09-04] MEDS: ATORVASTATIN 40 MG TABLET PO SCH (08:31)
[2022-09-04] MEDS: polyethylene glycoL 3350 17 GM PACKET PO SCH (08:32)
[2022-09-04] MEDS: lisinopriL 5 MG TABLET PO SCH (08:32)
--- NOTE | 2022-09-04 17:23 | ED Physician Documentation ---
ED Addendum - Addendum Addendum: 09/04/22 17:22 John is watching television today he is watching Tommy Florentin. A black and white Western with a sameer that looks pretty serious. He reports he has not been outside since someone took him for a walk. States that he is feeling well has no specific complaints.
[2022-09-05] MEDS: PANTOPRAZOLE 40 MG TABLET PO SCH (06:35)
[2022-09-05] MEDS: CLOPIDOGREL 75 MG TABLET PO SCH (09:30)
[2022-09-05] MEDS: polyethylene glycoL 3350 17 GM PACKET PO SCH (09:30)
[2022-09-05] MEDS: DOCUSATE SODIUM 250 MG CAPSULE PO SCH (09:30)
[2022-09-05] MEDS: ATORVASTATIN 40 MG TABLET PO SCH (09:30)
[2022-09-05] MEDS: lisinopriL 5 MG TABLET PO SCH (09:30)
[2022-09-05] MEDS: amLODIPine 5 MG TABLET PO SCH (09:30)
[2022-09-06] MEDS: PANTOPRAZOLE 40 MG TABLET PO SCH (06:36)
--- NOTE | 2022-09-06 07:25 | ED Physician Documentation ---
ED Addendum - Addendum Addendum: 09/06/22 07:24 He was sleeping comfortably during rounds this morning and I did not awaken him. Vital signs, nursing notes, and most recent social work notes reviewed.
[2022-09-06] MEDS: DOCUSATE SODIUM 250 MG CAPSULE PO SCH (09:41)
[2022-09-06] MEDS: lisinopriL 5 MG TABLET PO SCH (09:41)
[2022-09-06] MEDS: CLOPIDOGREL 75 MG TABLET PO SCH (09:41)
[2022-09-06] MEDS: amLODIPine 5 MG TABLET PO SCH (09:41)
[2022-09-06] MEDS: polyethylene glycoL 3350 17 GM PACKET PO SCH (09:42)
[2022-09-06] MEDS: ATORVASTATIN 40 MG TABLET PO SCH (09:45)
[2022-09-07] MEDS: PANTOPRAZOLE 40 MG TABLET PO SCH (06:33)
[2022-09-07] MEDS: DOCUSATE SODIUM 250 MG CAPSULE PO SCH (08:53)
[2022-09-07] MEDS: CLOPIDOGREL 75 MG TABLET PO SCH (08:53)
[2022-09-07] MEDS: lisinopriL 5 MG TABLET PO SCH (08:53)
[2022-09-07] MEDS: amLODIPine 5 MG TABLET PO SCH (08:53)
[2022-09-07] MEDS: polyethylene glycoL 3350 17 GM PACKET PO SCH (08:54)
[2022-09-07] MEDS: ATORVASTATIN 40 MG TABLET PO SCH (08:54)
--- NOTE | 2022-09-07 12:58 | ED Physician Documentation ---
ED Addendum - Addendum Addendum: 09/07/22 12:58 Review of the nursing and staff notes from last couple of days as well as discussion with nursing supervisor inspecting at morning rounds did not reveal any new problems. Notes continue to comment on a bit unsteadiness with walking so he does have assistance and uses a walker. No recent falls. He did not have any particular complaints. At this point continue current diet, activities, treatment plan. Still pending placement.
[2022-09-08] MEDS: PANTOPRAZOLE 40 MG TABLET PO SCH (06:08)
--- NOTE | 2022-09-08 08:43 | ED Physician Documentation ---
ED Addendum - Addendum Addendum: 09/08/22 08:43 No acute events overnight, patient continues to await placement. No further changes today.
[2022-09-08] MEDS: DOCUSATE SODIUM 250 MG CAPSULE PO SCH (09:06)
[2022-09-08] MEDS: ATORVASTATIN 40 MG TABLET PO SCH (09:06)
[2022-09-08] MEDS: amLODIPine 5 MG TABLET PO SCH (09:06)
[2022-09-08] MEDS: polyethylene glycoL 3350 17 GM PACKET PO SCH (09:06)
[2022-09-08] MEDS: CLOPIDOGREL 75 MG TABLET PO SCH (09:06)
[2022-09-08] MEDS: lisinopriL 5 MG TABLET PO SCH (09:06)
[2022-09-09] MEDS: PANTOPRAZOLE 40 MG TABLET PO SCH (06:22)
[2022-09-09] MEDS: amLODIPine 5 MG TABLET PO SCH (08:57)
[2022-09-09] MEDS: ATORVASTATIN 40 MG TABLET PO SCH (08:57)
[2022-09-09] MEDS: DOCUSATE SODIUM 250 MG CAPSULE PO SCH (08:57)
[2022-09-09] MEDS: lisinopriL 5 MG TABLET PO SCH (08:57)
[2022-09-09] MEDS: CLOPIDOGREL 75 MG TABLET PO SCH (08:57)
[2022-09-09] MEDS: polyethylene glycoL 3350 17 GM PACKET PO SCH (08:58)
--- NOTE | 2022-09-09 13:02 | ED Physician Documentation ---
ED Addendum - Addendum Addendum: 09/09/22 13:00 The patient was signed out to me at change of shift, continuing to board under emergency department care on the medical floor, and continuing to pend long-term care facility placement. The patient did not have any issues throughout the day. He took all his medications as ordered and ate his meals. He had no complaints and no development of vital sign abnormalities During my shift. The patient will continue to board, with social work working on placement for him. He is signed out to the oncoming emergency physician, pending this.
[2022-09-10] MEDS: PANTOPRAZOLE 40 MG TABLET PO SCH (06:39)
[2022-09-10] MEDS: DOCUSATE SODIUM 250 MG CAPSULE PO SCH (08:26)
[2022-09-10] MEDS: CLOPIDOGREL 75 MG TABLET PO SCH (08:26)
[2022-09-10] MEDS: ATORVASTATIN 40 MG TABLET PO SCH (08:26)
[2022-09-10] MEDS: lisinopriL 5 MG TABLET PO SCH (08:26)
[2022-09-10] MEDS: amLODIPine 5 MG TABLET PO SCH (08:26)
[2022-09-10] MEDS: polyethylene glycoL 3350 17 GM PACKET PO SCH (08:26)
--- NOTE | 2022-09-10 15:01 | ED Physician Documentation ---
ED Addendum - Addendum Addendum: 09/10/22 15:00 The patient was signed out to me at change of shift, continuing to board on the medical floor under emergency department care and continuing to pend long-term care placement. Patient had no issues during the day. He takes took all his medications as directed and ate his meals. Nursing staff reported no issues. Patient will continue to be followed by social work with the goal of long-term care placement and's final disposition.
[2022-09-11] MEDS: PANTOPRAZOLE 40 MG TABLET PO SCH (06:49)
[2022-09-11] MEDS: ATORVASTATIN 40 MG TABLET PO SCH (08:40)
[2022-09-11] MEDS: amLODIPine 5 MG TABLET PO SCH (08:40)
[2022-09-11] MEDS: lisinopriL 5 MG TABLET PO SCH (08:40)
[2022-09-11] MEDS: DOCUSATE SODIUM 250 MG CAPSULE PO SCH (08:40)
[2022-09-11] MEDS: CLOPIDOGREL 75 MG TABLET PO SCH (08:40)
[2022-09-11] MEDS: polyethylene glycoL 3350 17 GM PACKET PO SCH (08:40)
--- NOTE | 2022-09-11 12:07 | ED Physician Documentation ---
ED Addendum - Addendum Addendum: 09/11/22 12:07 Patient seen and examined at the bedside. He is sitting up and watching old movies as per usual and eating his lunch. When asked if he needed anything, he stated "yeah, I need to know when I am get the hell out of here." Unfortunately this information is unknown.
[2022-09-12] MEDS: PANTOPRAZOLE 40 MG TABLET PO SCH (06:05)
[2022-09-12] MEDS: lisinopriL 5 MG TABLET PO SCH (09:53)
[2022-09-12] MEDS: polyethylene glycoL 3350 17 GM PACKET PO SCH (09:53)
[2022-09-12] MEDS: ATORVASTATIN 40 MG TABLET PO SCH (09:53)
[2022-09-12] MEDS: DOCUSATE SODIUM 250 MG CAPSULE PO SCH (09:53)
[2022-09-12] MEDS: CLOPIDOGREL 75 MG TABLET PO SCH (09:53)
[2022-09-12] MEDS: amLODIPine 5 MG TABLET PO SCH (09:53)
--- NOTE | 2022-09-12 12:20 | ED Physician Documentation ---
ED Addendum - Addendum Addendum: 09/12/22 12:20 No noted problems on nursing notes. Plan continue same treatments. [facility] noted [facility] that [facility] talked with patient and staff. Awaiting further advancement on placement.
[2022-09-13] MEDS: PANTOPRAZOLE 40 MG TABLET PO SCH (07:08)
[2022-09-13] MEDS: DOCUSATE SODIUM 250 MG CAPSULE PO SCH (08:41)
[2022-09-13] MEDS: ATORVASTATIN 40 MG TABLET PO SCH (08:41)
[2022-09-13] MEDS: lisinopriL 5 MG TABLET PO SCH (08:41)
[2022-09-13] MEDS: amLODIPine 5 MG TABLET PO SCH (08:41)
[2022-09-13] MEDS: CLOPIDOGREL 75 MG TABLET PO SCH (08:41)
[2022-09-13] MEDS: polyethylene glycoL 3350 17 GM PACKET PO SCH (08:42)
--- NOTE | 2022-09-13 21:09 | ED Physician Documentation ---
ED Addendum - Addendum Addendum: 09/13/22 21:09 NO noted problems from nursing notes. No changes indicated in care at this time.
[2022-09-14] MEDS: PANTOPRAZOLE 40 MG TABLET PO SCH (06:54)
--- NOTE | 2022-09-14 08:21 | ED Physician Documentation ---
ED Addendum - Addendum Addendum: 09/14/22 08:18 Admit in person with the patient this morning. He was just finishing his breakfast of Japanese toast and palma. He did not have any complaints. He said he did not need anything new or changed. Review of nursing notes did not reveal obvious needs for the moment today. Continue with current plan.
[2022-09-14] MEDS: polyethylene glycoL 3350 17 GM PACKET PO SCH (08:58)
[2022-09-14] MEDS: lisinopriL 5 MG TABLET PO SCH (08:58)
[2022-09-14] MEDS: ATORVASTATIN 40 MG TABLET PO SCH (08:58)
[2022-09-14] MEDS: amLODIPine 5 MG TABLET PO SCH (08:58)
[2022-09-14] MEDS: CLOPIDOGREL 75 MG TABLET PO SCH (08:58)
[2022-09-14] MEDS: DOCUSATE SODIUM 250 MG CAPSULE PO SCH (08:58)
[2022-09-15] MEDS: PANTOPRAZOLE 40 MG TABLET PO SCH (06:58)
[2022-09-15] MEDS: DOCUSATE SODIUM 250 MG CAPSULE PO SCH (09:11)
[2022-09-15] MEDS: ATORVASTATIN 40 MG TABLET PO SCH (09:11)
[2022-09-15] MEDS: CLOPIDOGREL 75 MG TABLET PO SCH (09:11)
[2022-09-15] MEDS: amLODIPine 5 MG TABLET PO SCH (09:11)
[2022-09-15] MEDS: lisinopriL 5 MG TABLET PO SCH (09:11)
--- NOTE | 2022-09-15 15:41 | ED Physician Documentation ---
ED Addendum - Addendum Addendum: 09/15/22 15:40 No acute events overnight, still awaiting placement. Vital signs reviewed and not requiring intervention. Nursing notes reviewed
[2022-09-16] MEDS: PANTOPRAZOLE 40 MG TABLET PO SCH (06:45)
[2022-09-16] MEDS: DOCUSATE SODIUM 250 MG CAPSULE PO SCH (09:25)
[2022-09-16] MEDS: amLODIPine 5 MG TABLET PO SCH (09:26)
[2022-09-16] MEDS: CLOPIDOGREL 75 MG TABLET PO SCH (09:26)
[2022-09-16] MEDS: lisinopriL 5 MG TABLET PO SCH (09:26)
[2022-09-16] MEDS: ATORVASTATIN 40 MG TABLET PO SCH (09:26)
--- NOTE | 2022-09-16 15:27 | ED Physician Documentation ---
ED Addendum - Addendum Addendum: 09/16/22 15:27 Patient was signed out to me at change of shift, continuing to board on the floor under ED care and continuing to pend long-term care placement. Social work has been following the patient to this and and continues to be involved with his case. The patient had no issues throughout the day. He took all his medicines and ate all his meals. Nursing staff reported no issues. The patient is signed out to the oncoming emergency physician at change of shift, continuing to pend final disposition.
[2022-09-17] MEDS: PANTOPRAZOLE 40 MG TABLET PO SCH (06:11)
[2022-09-17] MEDS: polyethylene glycoL 3350 17 GM PACKET PO SCH ×2 (08:40→08:41)
[2022-09-17] MEDS: lisinopriL 5 MG TABLET PO SCH (08:41)
[2022-09-17] MEDS: CLOPIDOGREL 75 MG TABLET PO SCH (08:41)
[2022-09-17] MEDS: ATORVASTATIN 40 MG TABLET PO SCH (08:41)
[2022-09-17] MEDS: amLODIPine 5 MG TABLET PO SCH (08:41)
[2022-09-17] MEDS: DOCUSATE SODIUM 250 MG CAPSULE PO SCH (08:41)
--- NOTE | 2022-09-17 15:04 | ED Physician Documentation ---
ED Addendum - Addendum Addendum: 09/17/22 15:03 No concerns noted on nursing notes today. No social work notes as yet for the last few days. No change in treatment indicated at this time.
[2022-09-18] MEDS: PANTOPRAZOLE 40 MG TABLET PO SCH (06:52)
[2022-09-18] MEDS: polyethylene glycoL 3350 17 GM PACKET PO SCH (09:41)
[2022-09-18] MEDS: lisinopriL 5 MG TABLET PO SCH (09:41)
[2022-09-18] MEDS: ATORVASTATIN 40 MG TABLET PO SCH (09:41)
[2022-09-18] MEDS: CLOPIDOGREL 75 MG TABLET PO SCH (09:41)
[2022-09-18] MEDS: amLODIPine 5 MG TABLET PO SCH (09:41)
[2022-09-18] MEDS: DOCUSATE SODIUM 250 MG CAPSULE PO SCH (09:41)
--- NOTE | 2022-09-18 10:15 | ED Physician Documentation ---
ED Addendum - Addendum Addendum: 09/18/22 10:14 I stepped in briefly to see the patient this morning. He was sitting c omfortably watching [place]. He did not have any complaints. Review of the last days care notes did not reveal any obvious problems. Continue current plan.
[2022-09-19] MEDS: PANTOPRAZOLE 40 MG TABLET PO SCH (06:48)
--- NOTE | 2022-09-19 07:12 | ED Physician Documentation ---
ED Addendum - Addendum Addendum: 09/19/22 07:12 Patient seen and examined at bedside but he was sleeping and not aroused for exam. No acute events overnight.
[2022-09-19] MEDS: polyethylene glycoL 3350 17 GM PACKET PO SCH (08:29)
[2022-09-19] MEDS: DOCUSATE SODIUM 250 MG CAPSULE PO SCH (08:30)
[2022-09-19] MEDS: lisinopriL 5 MG TABLET PO SCH (08:30)
[2022-09-19] MEDS: CALCIUM CARBONATE CHEW 500 MG TABLET PO PRN (08:30)
[2022-09-19] MEDS: ATORVASTATIN 40 MG TABLET PO SCH (08:30)
[2022-09-19] MEDS: amLODIPine 5 MG TABLET PO SCH (08:31)
[2022-09-19] MEDS: CLOPIDOGREL 75 MG TABLET PO SCH (08:31)
[2022-09-20] MEDS: PANTOPRAZOLE 40 MG TABLET PO SCH (06:32)
[2022-09-20] MEDS: polyethylene glycoL 3350 17 GM PACKET PO SCH (09:47)
[2022-09-20] MEDS: SENNA 8.6 MG TABLET PO SCH (09:47)
[2022-09-20] MEDS: DOCUSATE SODIUM 250 MG CAPSULE PO SCH (09:47)
[2022-09-20] MEDS: lisinopriL 5 MG TABLET PO SCH (09:47)
[2022-09-20] MEDS: ATORVASTATIN 40 MG TABLET PO SCH (09:47)
[2022-09-20] MEDS: amLODIPine 5 MG TABLET PO SCH (09:47)
[2022-09-20] MEDS: CLOPIDOGREL 75 MG TABLET PO SCH (09:47)
--- NOTE | 2022-09-20 18:17 | ED Physician Documentation ---
ED Addendum - Addendum Addendum: 09/20/22 18:17 The patient was signed out to me at change of shift, continuing to pend long- term care placement and continuing to board on the medical floor under ED care. The patient was without any new issues throughout the day. He took his medications and meals and nursing staff reported no new issues with him. He is signed out to the oncoming emergency physician, continuing to pend final disposition.
[2022-09-21] MEDS: PANTOPRAZOLE 40 MG TABLET PO SCH (06:52)
[2022-09-21] MEDS: ATORVASTATIN 40 MG TABLET PO SCH (09:13)
[2022-09-21] MEDS: CLOPIDOGREL 75 MG TABLET PO SCH (09:13)
[2022-09-21] MEDS: polyethylene glycoL 3350 17 GM PACKET PO SCH (09:13)
[2022-09-21] MEDS: amLODIPine 5 MG TABLET PO SCH (09:13)
[2022-09-21] MEDS: DOCUSATE SODIUM 250 MG CAPSULE PO SCH (09:13)
[2022-09-21] MEDS: lisinopriL 5 MG TABLET PO SCH (09:13)
[2022-09-21] MEDS: SENNA 8.6 MG TABLET PO SCH (09:14)
--- NOTE | 2022-09-21 11:34 | ED Physician Documentation ---
ED Addendum - Addendum Addendum: 09/21/22 11:33 No noted problem on morning visit. Nursing notes state he had had a good bowel movement. He was up in the evening last evening and was social and in good mood. No apparent change in therapy needed. Presume social work note or update will be coming. No apparent change in treatments.
[2022-09-22] MEDS: PANTOPRAZOLE 40 MG TABLET PO SCH (06:38)
[2022-09-22] MEDS: amLODIPine 5 MG TABLET PO SCH (08:37)
[2022-09-22] MEDS: ATORVASTATIN 40 MG TABLET PO SCH (08:37)
[2022-09-22] MEDS: DOCUSATE SODIUM 250 MG CAPSULE PO SCH (08:37)
[2022-09-22] MEDS: SENNA 8.6 MG TABLET PO SCH (08:38)
[2022-09-22] MEDS: lisinopriL 5 MG TABLET PO SCH (08:38)
[2022-09-22] MEDS: polyethylene glycoL 3350 17 GM PACKET PO SCH (08:38)
[2022-09-22] MEDS: CLOPIDOGREL 75 MG TABLET PO SCH (08:42)
--- NOTE | 2022-09-22 16:07 | ED Physician Documentation ---
ED Addendum - Addendum Addendum: 09/22/22 16:07 Patient seen and examined at bedside. Sitting up watching a basketball game in no distress. No specific complaints. Social work notes reviewed.
[2022-09-23] MEDS: PANTOPRAZOLE 40 MG TABLET PO SCH (06:20)
[2022-09-23] MEDS: polyethylene glycoL 3350 17 GM PACKET PO SCH (09:06)
[2022-09-23] MEDS: SENNA 8.6 MG TABLET PO SCH (09:06)
[2022-09-23] MEDS: lisinopriL 5 MG TABLET PO SCH (09:06)
[2022-09-23] MEDS: CLOPIDOGREL 75 MG TABLET PO SCH (09:06)
[2022-09-23] MEDS: ATORVASTATIN 40 MG TABLET PO SCH (09:06)
[2022-09-23] MEDS: DOCUSATE SODIUM 250 MG CAPSULE PO SCH (09:06)
[2022-09-23] MEDS: amLODIPine 5 MG TABLET PO SCH (09:06)
--- NOTE | 2022-09-23 12:17 | ED Physician Documentation ---
ED Addendum - Addendum Addendum: 09/23/22 12:17 Gary was sitting up watching baseball. Eating his lunch. He had no c omplaints. Vital signs and recent nursing notes reviewed without specific concerns.
[2022-09-24] MEDS: PANTOPRAZOLE 40 MG TABLET PO SCH (06:33)
[2022-09-24] MEDS: amLODIPine 5 MG TABLET PO SCH (08:39)
[2022-09-24] MEDS: DOCUSATE SODIUM 250 MG CAPSULE PO SCH (08:39)
[2022-09-24] MEDS: lisinopriL 5 MG TABLET PO SCH (08:39)
[2022-09-24] MEDS: ATORVASTATIN 40 MG TABLET PO SCH (08:40)
[2022-09-24] MEDS: CLOPIDOGREL 75 MG TABLET PO SCH (08:41)
[2022-09-24] MEDS: SENNA 8.6 MG TABLET PO SCH (08:41)
[2022-09-24] MEDS: polyethylene glycoL 3350 17 GM PACKET PO SCH (08:41)
--- NOTE | 2022-09-24 12:01 | ED Physician Documentation ---
ED Addendum - Addendum Addendum: 09/24/22 12:01 Patient seen and examined at bedside. He is sitting up watching an old sit,. He has no complaints. Vital signs and nursing notes reviewed. No acute events. Awaiting placement.
[2022-09-25] MEDS: PANTOPRAZOLE 40 MG TABLET PO SCH (06:54)
[2022-09-25] MEDS: SENNA 8.6 MG TABLET PO SCH (08:32)
[2022-09-25] MEDS: polyethylene glycoL 3350 17 GM PACKET PO SCH (08:32)
[2022-09-25] MEDS: DOCUSATE SODIUM 250 MG CAPSULE PO SCH (08:58)
[2022-09-25] MEDS: amLODIPine 5 MG TABLET PO SCH (08:59)
[2022-09-25] MEDS: lisinopriL 5 MG TABLET PO SCH (08:59)
[2022-09-25] MEDS: CLOPIDOGREL 75 MG TABLET PO SCH (08:59)
[2022-09-25] MEDS: ATORVASTATIN 40 MG TABLET PO SCH (08:59)
--- NOTE | 2022-09-25 11:59 | ED Physician Documentation ---
ED Addendum - Addendum Addendum: 09/25/22 11:58 Gary is in good spirits this morning, sitting up watching TV. The nurse voices no needs or concerns.
[2022-09-26] MEDS: PANTOPRAZOLE 40 MG TABLET PO SCH (07:19)
[2022-09-26] MEDS: DOCUSATE SODIUM 250 MG CAPSULE PO SCH (09:20)
[2022-09-26] MEDS: polyethylene glycoL 3350 17 GM PACKET PO SCH (09:20)
[2022-09-26] MEDS: SENNA 8.6 MG TABLET PO SCH (09:20)
[2022-09-26] MEDS: ATORVASTATIN 40 MG TABLET PO SCH (09:20)
[2022-09-26] MEDS: CLOPIDOGREL 75 MG TABLET PO SCH (09:20)
[2022-09-26] MEDS: lisinopriL 5 MG TABLET PO SCH (09:20)
[2022-09-26] MEDS: amLODIPine 5 MG TABLET PO SCH (09:20)
--- NOTE | 2022-09-26 18:57 | ED Physician Documentation ---
ED Addendum - Addendum Addendum: 09/26/22 18:56 Today John is watching a program on [employer] [facility]. He tells me that he has been walking the halls at least twice per day and that he last was outside about 10 days ago. He has no specific change to his care.
[2022-09-27] MEDS: PANTOPRAZOLE 40 MG TABLET PO SCH (06:46)
--- NOTE | 2022-09-27 07:52 | ED Physician Documentation ---
ED Addendum - Addendum Addendum: 09/27/22 07:52 As per usual he was sitting up in a chair watching TV with no complaints. Nurse voiced no needs or concerns.
[2022-09-27] MEDS: amLODIPine 5 MG TABLET PO SCH (08:10)
[2022-09-27] MEDS: ATORVASTATIN 40 MG TABLET PO SCH (08:10)
[2022-09-27] MEDS: lisinopriL 5 MG TABLET PO SCH (08:10)
[2022-09-27] MEDS: DOCUSATE SODIUM 250 MG CAPSULE PO SCH (08:11)
[2022-09-27] MEDS: polyethylene glycoL 3350 17 GM PACKET PO SCH (08:11)
[2022-09-27] MEDS: CLOPIDOGREL 75 MG TABLET PO SCH (08:11)
[2022-09-27] MEDS: SENNA 8.6 MG TABLET PO SCH (08:11)
[2022-09-28] MEDS: PANTOPRAZOLE 40 MG TABLET PO SCH (06:33)
[2022-09-28] MEDS: lisinopriL 5 MG TABLET PO SCH (08:59)
[2022-09-28] MEDS: CLOPIDOGREL 75 MG TABLET PO SCH (08:59)
[2022-09-28] MEDS: ATORVASTATIN 40 MG TABLET PO SCH (09:00)
[2022-09-28] MEDS: DOCUSATE SODIUM 250 MG CAPSULE PO SCH (09:00)
[2022-09-28] MEDS: SENNA 8.6 MG TABLET PO SCH (09:00)
[2022-09-28] MEDS: polyethylene glycoL 3350 17 GM PACKET PO SCH (09:00)
[2022-09-28] MEDS: amLODIPine 5 MG TABLET PO SCH (09:00)
--- NOTE | 2022-09-28 17:03 | ED Physician Documentation ---
ED Addendum - Addendum Addendum: 09/28/22 17:02 Today Gary is again watching an old black and white Western. He has no idea who the actors are and neither did I. He watches a commercial for the [employer] and and indicates that he thinks that veterans should not have to pay taxes. He is essentially unchanged in his care with no new problems
[2022-09-29] MEDS: PANTOPRAZOLE 40 MG TABLET PO SCH (06:05)
[2022-09-29] MEDS: lisinopriL 5 MG TABLET PO SCH (08:01)
[2022-09-29] MEDS: SENNA 8.6 MG TABLET PO SCH (08:01)
[2022-09-29] MEDS: ATORVASTATIN 40 MG TABLET PO SCH (08:01)
[2022-09-29] MEDS: DOCUSATE SODIUM 250 MG CAPSULE PO SCH (08:01)
[2022-09-29] MEDS: CLOPIDOGREL 75 MG TABLET PO SCH (08:02)
[2022-09-29] MEDS: amLODIPine 5 MG TABLET PO SCH (08:02)
[2022-09-29] MEDS: polyethylene glycoL 3350 17 GM PACKET PO SCH (08:02)
--- NOTE | 2022-09-29 10:19 | ED Physician Documentation ---
ED Addendum - Addendum Addendum: 09/29/22 10:19 Patient was sleeping on my evaluation, nurse not available but no reports of issues looking at recent nursing notes and vital signs.
[2022-09-30] MEDS: PANTOPRAZOLE 40 MG TABLET PO SCH (06:47)
[2022-09-30] MEDS: polyethylene glycoL 3350 17 GM PACKET PO SCH (07:45)
[2022-09-30] MEDS: DOCUSATE SODIUM 250 MG CAPSULE PO SCH (07:45)
[2022-09-30] MEDS: amLODIPine 5 MG TABLET PO SCH (07:46)
[2022-09-30] MEDS: lisinopriL 5 MG TABLET PO SCH (07:46)
[2022-09-30] MEDS: ATORVASTATIN 40 MG TABLET PO SCH (07:46)
[2022-09-30] MEDS: SENNA 8.6 MG TABLET PO SCH (07:46)
[2022-09-30] MEDS: CLOPIDOGREL 75 MG TABLET PO SCH (07:47)
--- NOTE | 2022-09-30 11:57 | ED Physician Documentation ---
ED Addendum - Addendum Addendum: 09/30/22 11:57 As per usual he was sitting up watching an old movie. He had no complaints. Review of nursing notes and vital signs do not suggest any acute issues.
[2022-10-01] MEDS: PANTOPRAZOLE 40 MG TABLET PO SCH (06:03)
[2022-10-01] MEDS: DOCUSATE SODIUM 250 MG CAPSULE PO SCH (08:26)
[2022-10-01] MEDS: SENNA 8.6 MG TABLET PO SCH (08:26)
[2022-10-01] MEDS: CLOPIDOGREL 75 MG TABLET PO SCH (08:26)
[2022-10-01] MEDS: ATORVASTATIN 40 MG TABLET PO SCH (08:26)
[2022-10-01] MEDS: lisinopriL 5 MG TABLET PO SCH (08:26)
[2022-10-01] MEDS: amLODIPine 5 MG TABLET PO SCH (08:26)
[2022-10-01] MEDS: polyethylene glycoL 3350 17 GM PACKET PO SCH (08:27)
--- NOTE | 2022-10-01 09:07 | ED Physician Documentation ---
ED Addendum - Addendum Addendum: 10/01/22 09:06 Patient evaluated independently at bedside. Found to be sitting next to bed watching television. No acute complaints. Will continue to monitor.
[2022-10-02] MEDS: PANTOPRAZOLE 40 MG TABLET PO SCH (06:38)
[2022-10-02] MEDS: ATORVASTATIN 40 MG TABLET PO SCH (08:51)
[2022-10-02] MEDS: amLODIPine 5 MG TABLET PO SCH (08:51)
[2022-10-02] MEDS: lisinopriL 5 MG TABLET PO SCH (08:51)
[2022-10-02] MEDS: CLOPIDOGREL 75 MG TABLET PO SCH (08:51)
[2022-10-02] MEDS: SENNA 8.6 MG TABLET PO SCH (08:51)
[2022-10-02] MEDS: DOCUSATE SODIUM 250 MG CAPSULE PO SCH (08:51)
[2022-10-02] MEDS: polyethylene glycoL 3350 17 GM PACKET PO SCH (08:51)
--- NOTE | 2022-10-02 17:32 | ED Physician Documentation ---
ED Addendum - Addendum Addendum: 10/02/22 17:31 No apparent problems from nursing notes and on morning team report. To continue current treatment plans diet and activity.
[2022-10-03] MEDS: PANTOPRAZOLE 40 MG TABLET PO SCH (06:03)
[2022-10-03] MEDS: amLODIPine 5 MG TABLET PO SCH (08:40)
[2022-10-03] MEDS: ATORVASTATIN 40 MG TABLET PO SCH (08:40)
[2022-10-03] MEDS: CLOPIDOGREL 75 MG TABLET PO SCH (08:40)
[2022-10-03] MEDS: lisinopriL 5 MG TABLET PO SCH (08:40)
[2022-10-03] MEDS: polyethylene glycoL 3350 17 GM PACKET PO SCH (11:25)
[2022-10-03] MEDS: DOCUSATE SODIUM 250 MG CAPSULE PO SCH (11:25)
[2022-10-03] MEDS: SENNA 8.6 MG TABLET PO SCH (11:26)
--- NOTE | 2022-10-03 14:23 | ED Physician Documentation ---
ED Addendum - Addendum Addendum: 10/03/22 14:22 I met with the patient in his room. He was resting at the time and semisleepy. He did not have any particular complaints. Checked in with nursing staff and they did not have any requests. Continue with current treatment and plans.
[2022-10-04] MEDS: PANTOPRAZOLE 40 MG TABLET PO SCH (06:56)
[2022-10-04] MEDS: polyethylene glycoL 3350 17 GM PACKET PO SCH (10:05)
[2022-10-04] MEDS: CLOPIDOGREL 75 MG TABLET PO SCH (10:05)
[2022-10-04] MEDS: amLODIPine 5 MG TABLET PO SCH (10:05)
[2022-10-04] MEDS: SENNA 8.6 MG TABLET PO SCH (10:05)
[2022-10-04] MEDS: ATORVASTATIN 40 MG TABLET PO SCH (10:06)
[2022-10-04] MEDS: DOCUSATE SODIUM 250 MG CAPSULE PO SCH (10:06)
[2022-10-04] MEDS: lisinopriL 5 MG TABLET PO SCH (10:06)
--- NOTE | 2022-10-04 15:09 | ED Physician Documentation ---
ED Addendum - Addendum Addendum: 10/04/22 15:08 Patient is resting comfortably. No complaints. No concerns from nursing notes. COntinue current treatments/diet.
[2022-10-05] MEDS: PANTOPRAZOLE 40 MG TABLET PO SCH (06:52)
[2022-10-05] MEDS: polyethylene glycoL 3350 17 GM PACKET PO SCH (08:40)
[2022-10-05] MEDS: DOCUSATE SODIUM 250 MG CAPSULE PO SCH (08:40)
[2022-10-05] MEDS: SENNA 8.6 MG TABLET PO SCH (08:40)
[2022-10-05] MEDS: CLOPIDOGREL 75 MG TABLET PO SCH (08:40)
[2022-10-05] MEDS: ATORVASTATIN 40 MG TABLET PO SCH (08:40)
[2022-10-05] MEDS: lisinopriL 5 MG TABLET PO SCH (08:40)
[2022-10-05] MEDS: amLODIPine 5 MG TABLET PO SCH (08:40)
--- NOTE | 2022-10-05 13:05 | ED Physician Documentation ---
ED Addendum - Addendum Addendum: 10/05/22 13:05 The patient was awake and pleasant with simple conversation. No apparent distress. No noted problems based on nursing notes. Continue current treatment regimen.
[2022-10-06] MEDS: PANTOPRAZOLE 40 MG TABLET PO SCH (06:36)
[2022-10-06] MEDS: CLOPIDOGREL 75 MG TABLET PO SCH (08:38)
[2022-10-06] MEDS: SENNA 8.6 MG TABLET PO SCH (08:39)
[2022-10-06] MEDS: polyethylene glycoL 3350 17 GM PACKET PO SCH (08:39)
[2022-10-06] MEDS: ATORVASTATIN 40 MG TABLET PO SCH (08:39)
[2022-10-06] MEDS: DOCUSATE SODIUM 250 MG CAPSULE PO SCH (08:39)
[2022-10-06] MEDS: lisinopriL 5 MG TABLET PO SCH (08:39)
[2022-10-06] MEDS: amLODIPine 5 MG TABLET PO SCH (08:39)
--- NOTE | 2022-10-06 14:59 | ED Physician Documentation ---
ED Addendum - Addendum Addendum: 10/06/22 14:58 The patient was signed out to me at change of shift by off going emergency physician, continuing to pend long-term care facility placement and continuing to be followed by social work. The patient had no issues throughout the day. He took all of his medications as ordered and ate his meals. Nursing staff reported no issues. He will be signed out to the oncoming emergency physician, continuing to pend final disposition.
[2022-10-07] MEDS: PANTOPRAZOLE 40 MG TABLET PO SCH (06:38)
[2022-10-07] MEDS: SENNA 8.6 MG TABLET PO SCH (08:05)
[2022-10-07] MEDS: lisinopriL 5 MG TABLET PO SCH (08:05)
[2022-10-07] MEDS: ATORVASTATIN 40 MG TABLET PO SCH (08:05)
[2022-10-07] MEDS: CLOPIDOGREL 75 MG TABLET PO SCH (08:05)
[2022-10-07] MEDS: DOCUSATE SODIUM 250 MG CAPSULE PO SCH (08:06)
[2022-10-07] MEDS: amLODIPine 5 MG TABLET PO SCH (08:07)
[2022-10-07] MEDS: polyethylene glycoL 3350 17 GM PACKET PO SCH (11:24)
[2022-10-08] MEDS: PANTOPRAZOLE 40 MG TABLET PO SCH (06:24)
[2022-10-08] MEDS: CLOPIDOGREL 75 MG TABLET PO SCH (07:55)
[2022-10-08] MEDS: polyethylene glycoL 3350 17 GM PACKET PO SCH (07:55)
[2022-10-08] MEDS: DOCUSATE SODIUM 250 MG CAPSULE PO SCH (07:55)
[2022-10-08] MEDS: ATORVASTATIN 40 MG TABLET PO SCH (07:55)
[2022-10-08] MEDS: amLODIPine 5 MG TABLET PO SCH (07:56)
[2022-10-08] MEDS: SENNA 8.6 MG TABLET PO SCH (07:56)
[2022-10-08] MEDS: lisinopriL 5 MG TABLET PO SCH (07:56)
--- NOTE | 2022-10-08 17:30 | ED Physician Documentation ---
ED Addendum - Addendum Addendum: 10/08/22 17:29 Patient without complaints this morning. No issues per nursing notes. Continue current treatment, diet, activity.
[2022-10-09] MEDS: PANTOPRAZOLE 40 MG TABLET PO SCH (06:28)
[2022-10-09] MEDS: DOCUSATE SODIUM 250 MG CAPSULE PO SCH (08:54)
[2022-10-09] MEDS: SENNA 8.6 MG TABLET PO SCH (08:54)
[2022-10-09] MEDS: CLOPIDOGREL 75 MG TABLET PO SCH (08:54)
[2022-10-09] MEDS: ATORVASTATIN 40 MG TABLET PO SCH (08:54)
[2022-10-09] MEDS: polyethylene glycoL 3350 17 GM PACKET PO SCH (08:54)
[2022-10-09] MEDS: lisinopriL 5 MG TABLET PO SCH (08:54)
[2022-10-09] MEDS: amLODIPine 5 MG TABLET PO SCH (08:54)
--- NOTE | 2022-10-09 11:14 | ED Physician Documentation ---
ED Addendum - Addendum Addendum: 10/09/22 11:12 No reported problems from nursing notes and meeting with his nurse. The patient is without complaint. No apparent movement on disposition from addiction social worker. Continue current treatments.
[2022-10-10] MEDS: PANTOPRAZOLE 40 MG TABLET PO SCH (07:20)
[2022-10-10] MEDS: CLOPIDOGREL 75 MG TABLET PO SCH (08:47)
[2022-10-10] MEDS: ATORVASTATIN 40 MG TABLET PO SCH (08:47)
[2022-10-10] MEDS: DOCUSATE SODIUM 250 MG CAPSULE PO SCH (08:47)
[2022-10-10] MEDS: SENNA 8.6 MG TABLET PO SCH (08:48)
[2022-10-10] MEDS: lisinopriL 5 MG TABLET PO SCH (08:48)
[2022-10-10] MEDS: amLODIPine 5 MG TABLET PO SCH (08:48)
[2022-10-10] MEDS: polyethylene glycoL 3350 17 GM PACKET PO SCH (08:48)
--- NOTE | 2022-10-10 15:57 | ED Physician Documentation ---
ED Addendum - Addendum Addendum: 10/10/22 15:57 Patient was sitting up in bed watching TV. He had no complaints. Nurse was not immediately available. Recent nursing notes and vital signs reviewed. Most recent social work note was the sixth of this month, so not sure where we are in the process of placement.
[2022-10-11] MEDS: PANTOPRAZOLE 40 MG TABLET PO SCH (07:25)
[2022-10-11] MEDS: ATORVASTATIN 40 MG TABLET PO SCH (07:54)
[2022-10-11] MEDS: amLODIPine 5 MG TABLET PO SCH (07:55)
[2022-10-11] MEDS: CLOPIDOGREL 75 MG TABLET PO SCH (07:55)
[2022-10-11] MEDS: SENNA 8.6 MG TABLET PO SCH (07:55)
[2022-10-11] MEDS: DOCUSATE SODIUM 250 MG CAPSULE PO SCH (07:55)
[2022-10-11] MEDS: lisinopriL 5 MG TABLET PO SCH (07:55)
[2022-10-11] MEDS: polyethylene glycoL 3350 17 GM PACKET PO SCH (07:55)
--- NOTE | 2022-10-11 18:47 | ED Physician Documentation ---
ED Addendum - Addendum Addendum: 10/11/22 18:47 Patient was signed out to me at change of shift, continuing to pend long-term care facility placement and to be followed by social work. The patient had no new issues during the day. He took all his meds and ate all his meals as usual. The nursing staff reported no further concerns or issues. Patient was without complaints. At this point in time, there are no new developments in this case. Social work will continue to try to place the patient. He is signed out to the oncoming emergency physician, continuing to pend final disposition.
[2022-10-12] MEDS: PANTOPRAZOLE 40 MG TABLET PO SCH (07:06)
[2022-10-12] MEDS: DOCUSATE SODIUM 250 MG CAPSULE PO SCH (08:25)
[2022-10-12] MEDS: polyethylene glycoL 3350 17 GM PACKET PO SCH (08:25)
[2022-10-12] MEDS: SENNA 8.6 MG TABLET PO SCH (08:25)
[2022-10-12] MEDS: amLODIPine 5 MG TABLET PO SCH (08:25)
[2022-10-12] MEDS: ATORVASTATIN 40 MG TABLET PO SCH (08:25)
[2022-10-12] MEDS: lisinopriL 5 MG TABLET PO SCH (08:25)
[2022-10-12] MEDS: CLOPIDOGREL 75 MG TABLET PO SCH (08:25)
--- NOTE | 2022-10-12 18:32 | ED Physician Documentation ---
ED Addendum - Addendum Addendum: 10/12/22 18:31 No significant changes today to Gary. He is watching a baseball game today instead of a [id number]. He still has a package of cards sitting on his tray that he has not opened. He says he is thinking about opening them. He walked the halls twice yesterday has not done any walking today. No changes in the patient's care or disposition. Continuing to look for placement.
[2022-10-13] MEDS: PANTOPRAZOLE 40 MG TABLET PO SCH (06:12)
[2022-10-13] MEDS: polyethylene glycoL 3350 17 GM PACKET PO SCH (08:09)
[2022-10-13] MEDS: DOCUSATE SODIUM 250 MG CAPSULE PO SCH (08:09)
[2022-10-13] MEDS: lisinopriL 5 MG TABLET PO SCH (08:09)
[2022-10-13] MEDS: SENNA 8.6 MG TABLET PO SCH (08:09)
[2022-10-13] MEDS: ATORVASTATIN 40 MG TABLET PO SCH (08:09)
[2022-10-13] MEDS: amLODIPine 5 MG TABLET PO SCH (08:10)
[2022-10-13] MEDS: CLOPIDOGREL 75 MG TABLET PO SCH (08:10)
--- NOTE | 2022-10-13 22:19 | ED Physician Documentation ---
ED Addendum - Addendum Addendum: 10/13/22 22:18 Patient seems to be doing okay today. SW note that they met with patient today. No change in treatment. Still awaiting info on forward progress.
[2022-10-14] MEDS: PANTOPRAZOLE 40 MG TABLET PO SCH (06:08)
[2022-10-14] MEDS: lisinopriL 5 MG TABLET PO SCH (08:30)
[2022-10-14] MEDS: CLOPIDOGREL 75 MG TABLET PO SCH (08:30)
[2022-10-14] MEDS: SENNA 8.6 MG TABLET PO SCH (08:31)
[2022-10-14] MEDS: ATORVASTATIN 40 MG TABLET PO SCH (08:31)
[2022-10-14] MEDS: DOCUSATE SODIUM 250 MG CAPSULE PO SCH (08:31)
[2022-10-14] MEDS: amLODIPine 5 MG TABLET PO SCH (08:31)
[2022-10-14] MEDS: polyethylene glycoL 3350 17 GM PACKET PO SCH (10:21)
--- NOTE | 2022-10-14 13:12 | ED Physician Documentation ---
ED Addendum - Addendum Addendum: 10/14/22 13:11 No obvious concerns on nursing notes. I did stop in with the patient briefly early this morning and he did not have any complaints. Continue current treatments.
[2022-10-15] MEDS: PANTOPRAZOLE 40 MG TABLET PO SCH (06:18)
[2022-10-15] MEDS: amLODIPine 5 MG TABLET PO SCH (08:30)
[2022-10-15] MEDS: CLOPIDOGREL 75 MG TABLET PO SCH (08:30)
[2022-10-15] MEDS: SENNA 8.6 MG TABLET PO SCH (08:30)
[2022-10-15] MEDS: polyethylene glycoL 3350 17 GM PACKET PO SCH (08:30)
[2022-10-15] MEDS: DOCUSATE SODIUM 250 MG CAPSULE PO SCH (08:30)
[2022-10-15] MEDS: ATORVASTATIN 40 MG TABLET PO SCH (08:30)
[2022-10-15] MEDS: lisinopriL 5 MG TABLET PO SCH (08:30)
--- NOTE | 2022-10-15 14:43 | ED Physician Documentation ---
ED Addendum - Addendum Addendum: 10/15/22 14:43 The patient was resting and sleeping with the TV on when a went to see him today. I did not arouse him but let him rest. His nurse today said the patient has been doing okay and ate earlier and did not have any complaints.
[2022-10-16] MEDS: PANTOPRAZOLE 40 MG TABLET PO SCH (06:37)
[2022-10-16] MEDS: lisinopriL 5 MG TABLET PO SCH (08:31)
[2022-10-16] MEDS: SENNA 8.6 MG TABLET PO SCH (08:31)
[2022-10-16] MEDS: DOCUSATE SODIUM 250 MG CAPSULE PO SCH (08:31)
[2022-10-16] MEDS: ATORVASTATIN 40 MG TABLET PO SCH (08:31)
[2022-10-16] MEDS: amLODIPine 5 MG TABLET PO SCH (08:31)
[2022-10-16] MEDS: CLOPIDOGREL 75 MG TABLET PO SCH (08:31)
[2022-10-16] MEDS: polyethylene glycoL 3350 17 GM PACKET PO SCH (08:32)
--- NOTE | 2022-10-16 19:08 | ED Physician Documentation ---
ED Addendum - Addendum Addendum: 10/16/22 19:06 Today which he is watching the 3 [employer] with some Nazi war games going on. He remembers the names of all 3 of the 3 [employer]. He has finally opened the deck of cards but he has not done anything with them.
[2022-10-17] MEDS: PANTOPRAZOLE 40 MG TABLET PO SCH (06:09)
[2022-10-17] MEDS: SENNA 8.6 MG TABLET PO SCH (08:27)
[2022-10-17] MEDS: amLODIPine 5 MG TABLET PO SCH (08:27)
[2022-10-17] MEDS: CLOPIDOGREL 75 MG TABLET PO SCH (08:27)
[2022-10-17] MEDS: DOCUSATE SODIUM 250 MG CAPSULE PO SCH (08:27)
[2022-10-17] MEDS: polyethylene glycoL 3350 17 GM PACKET PO SCH (08:28)
[2022-10-17] MEDS: ATORVASTATIN 40 MG TABLET PO SCH (08:28)
[2022-10-17] MEDS: lisinopriL 5 MG TABLET PO SCH (08:28)
--- NOTE | 2022-10-17 17:47 | ED Physician Documentation ---
ED Addendum - Addendum Addendum: 10/17/22 17:46 Patient was signed out to me at change of shift, continuing to pend final disposition to long-term care placement and continuing to be followed by social work to that end. Patient had no issues during the day. He took his medications as directed and nursing staff reported no issues. Signed out to oncoming emergency physician pending final disposition.
[2022-10-18] MEDS: PANTOPRAZOLE 40 MG TABLET PO SCH (07:02)
[2022-10-18] MEDS: DOCUSATE SODIUM 250 MG CAPSULE PO SCH (08:42)
[2022-10-18] MEDS: lisinopriL 5 MG TABLET PO SCH (08:42)
[2022-10-18] MEDS: polyethylene glycoL 3350 17 GM PACKET PO SCH (08:43)
[2022-10-18] MEDS: ATORVASTATIN 40 MG TABLET PO SCH (08:43)
[2022-10-18] MEDS: amLODIPine 5 MG TABLET PO SCH (08:43)
[2022-10-18] MEDS: SENNA 8.6 MG TABLET PO SCH (08:43)
[2022-10-18] MEDS: CLOPIDOGREL 75 MG TABLET PO SCH (08:43)
--- NOTE | 2022-10-18 14:31 | ED Physician Documentation ---
ED Addendum - Addendum Addendum: 10/18/22 14:31 He was sleeping when I went over to [facility] today and not aroused for exam. Recent vital signs and nursing notes reviewed without acute issues other than needing placement.
[2022-10-19] MEDS: PANTOPRAZOLE 40 MG TABLET PO SCH (06:49)
[2022-10-19] MEDS: DOCUSATE SODIUM 250 MG CAPSULE PO SCH (09:30)
[2022-10-19] MEDS: polyethylene glycoL 3350 17 GM PACKET PO SCH (09:30)
[2022-10-19] MEDS: amLODIPine 5 MG TABLET PO SCH (09:30)
[2022-10-19] MEDS: SENNA 8.6 MG TABLET PO SCH (09:30)
[2022-10-19] MEDS: CLOPIDOGREL 75 MG TABLET PO SCH (09:30)
[2022-10-19] MEDS: ATORVASTATIN 40 MG TABLET PO SCH (09:30)
[2022-10-19] MEDS: lisinopriL 5 MG TABLET PO SCH (09:32)
--- NOTE | 2022-10-19 11:43 | ED Physician Documentation ---
ED Addendum - Addendum Addendum: 10/19/22 11:42 The patient was awake and conversant. He states he is feeling well. He was aware of 19 October and said he thought it was best that he did not do any fireworks in the hospital. Otherwise he is feeling well and no apparent changes needed. No concerns from the his nurse today.
[2022-10-20] MEDS: PANTOPRAZOLE 40 MG TABLET PO SCH (07:02)
--- NOTE | 2022-10-20 07:40 | ED Physician Documentation ---
ED Addendum - Addendum Addendum: 10/20/22 07:40 Patient evaluated independently at bedside at approximately 730 hours. He is found to be sitting at the side of his bed watching television. No acute complaints. No reported overnight events.
[2022-10-20] MEDS: SENNA 8.6 MG TABLET PO SCH (08:08)
[2022-10-20] MEDS: polyethylene glycoL 3350 17 GM PACKET PO SCH (08:08)
[2022-10-20] MEDS: DOCUSATE SODIUM 250 MG CAPSULE PO SCH (08:08)
[2022-10-20] MEDS: CLOPIDOGREL 75 MG TABLET PO SCH (08:09)
[2022-10-20] MEDS: lisinopriL 5 MG TABLET PO SCH (08:09)
[2022-10-20] MEDS: amLODIPine 5 MG TABLET PO SCH (08:09)
[2022-10-20] MEDS: ATORVASTATIN 40 MG TABLET PO SCH (08:09)
[2022-10-21] MEDS: PANTOPRAZOLE 40 MG TABLET PO SCH (06:42)
[2022-10-21] MEDS: polyethylene glycoL 3350 17 GM PACKET PO SCH (08:07)
[2022-10-21] MEDS: lisinopriL 5 MG TABLET PO SCH (08:08)
[2022-10-21] MEDS: ATORVASTATIN 40 MG TABLET PO SCH (08:08)
[2022-10-21] MEDS: CLOPIDOGREL 75 MG TABLET PO SCH (08:08)
[2022-10-21] MEDS: SENNA 8.6 MG TABLET PO SCH (08:08)
[2022-10-21] MEDS: DOCUSATE SODIUM 250 MG CAPSULE PO SCH (08:08)
[2022-10-21] MEDS: amLODIPine 5 MG TABLET PO SCH (08:08)
--- NOTE | 2022-10-21 08:11 | ED Physician Documentation ---
ED Addendum - Addendum Addendum: 10/21/22 08:09 I evaluated the patient at the bedside. He is sitting in his bedside chair about to start breakfast and watching a show. He denies any complaints or concerns. His RN is also in the room and denies any needs at this time. Nursing staff noted to me a few nights ago that they had noted some erythema in the axilla when they were bathing him. Small patch of dry/scaly erythema and to the left axilla, none in the right, no tenderness. Patient denies any complaints in regards to itching or discomfort. Requested nursing staff to continue to monitor. Patient remains boarding pending placement through social work.
[2022-10-22] MEDS: PANTOPRAZOLE 40 MG TABLET PO SCH (06:13)
[2022-10-22] MEDS: amLODIPine 5 MG TABLET PO SCH (08:47)
[2022-10-22] MEDS: DOCUSATE SODIUM 250 MG CAPSULE PO SCH (08:47)
[2022-10-22] MEDS: ATORVASTATIN 40 MG TABLET PO SCH (08:47)
[2022-10-22] MEDS: polyethylene glycoL 3350 17 GM PACKET PO SCH (08:47)
[2022-10-22] MEDS: lisinopriL 5 MG TABLET PO SCH (08:47)
[2022-10-22] MEDS: CLOPIDOGREL 75 MG TABLET PO SCH (08:47)
[2022-10-22] MEDS: SENNA 8.6 MG TABLET PO SCH (08:48)
--- NOTE | 2022-10-22 17:15 | ED Physician Documentation ---
ED Addendum - Addendum Addendum: No acute events overnight. Patient remains boarding awaiting placement by social work.
[2022-10-23] MEDS: PANTOPRAZOLE 40 MG TABLET PO SCH (06:50)
[2022-10-23] MEDS: DOCUSATE SODIUM 250 MG CAPSULE PO SCH (08:31)
[2022-10-23] MEDS: CLOPIDOGREL 75 MG TABLET PO SCH (08:31)
[2022-10-23] MEDS: lisinopriL 5 MG TABLET PO SCH (08:31)
[2022-10-23] MEDS: ATORVASTATIN 40 MG TABLET PO SCH (08:32)
[2022-10-23] MEDS: amLODIPine 5 MG TABLET PO SCH (08:32)
[2022-10-23] MEDS: SENNA 8.6 MG TABLET PO SCH (08:32)
[2022-10-23] MEDS: polyethylene glycoL 3350 17 GM PACKET PO SCH ×2 (08:32→10:38)
--- NOTE | 2022-10-23 16:03 | ED Physician Documentation ---
ED Addendum - Addendum Addendum: 10/23/22 16:02 This afternoon which is in his chair watching television he is watching mash and says that his afternoon is going just fine. He has been out on his walking. I asked him if he was ready to play some cards and he indicated he was not much of a poker player when asked if he could maybe play 21 he said he probably could not add well enough to do it. He does have some insight into his limitations.
[2022-10-24] MEDS: PANTOPRAZOLE 40 MG TABLET PO SCH (06:22)
[2022-10-24] MEDS: CLOPIDOGREL 75 MG TABLET PO SCH (08:46)
[2022-10-24] MEDS: ATORVASTATIN 40 MG TABLET PO SCH (08:46)
[2022-10-24] MEDS: polyethylene glycoL 3350 17 GM PACKET PO SCH (08:46)
[2022-10-24] MEDS: lisinopriL 5 MG TABLET PO SCH (08:46)
[2022-10-24] MEDS: amLODIPine 5 MG TABLET PO SCH (08:46)
[2022-10-24] MEDS: DOCUSATE SODIUM 250 MG CAPSULE PO SCH (08:46)
[2022-10-24] MEDS: SENNA 8.6 MG TABLET PO SCH (08:46)
--- NOTE | 2022-10-24 14:39 | ED Physician Documentation ---
ED Addendum - Addendum Addendum: 10/24/22 14:38 The patient is signed out to me at change of shift, continuing to pend long-term care facility placement and continuing to be followed by social work to this and. The patient has had no complaints today and no issues have been reported by nursing staff. He is eating all his meals and taking all his medications as directed. He will be signed out to the oncoming emergency physician, with continued goal of residential placement in a long-term care facility.
[2022-10-25] MEDS: PANTOPRAZOLE 40 MG TABLET PO SCH (06:41)
[2022-10-25] MEDS: CLOPIDOGREL 75 MG TABLET PO SCH (08:29)
[2022-10-25] MEDS: ATORVASTATIN 40 MG TABLET PO SCH (08:29)
[2022-10-25] MEDS: polyethylene glycoL 3350 17 GM PACKET PO SCH (08:29)
[2022-10-25] MEDS: amLODIPine 5 MG TABLET PO SCH (08:29)
[2022-10-25] MEDS: DOCUSATE SODIUM 250 MG CAPSULE PO SCH (08:29)
[2022-10-25] MEDS: lisinopriL 5 MG TABLET PO SCH (08:29)
[2022-10-25] MEDS: SENNA 8.6 MG TABLET PO SCH (08:30)
--- NOTE | 2022-10-25 15:08 | ED Physician Documentation ---
ED Addendum - Addendum Addendum: 10/25/22 15:07 The patient was signed out to me at change of shift, continuing to pend long- term care placement and continuing to be followed by social work. The patient had no issues throughout the day. Nursing staff reported no problems and the patient took all his medications and ate all his meals. loft worker head has noticed that the patient seems more depressed lately and will be doing further evaluation for this. Efforts have also been made to provide more social interaction for the patient. He is signed out to the oncoming emergency physician at change of shift, pending final disposition to long-term care facility.
[2022-10-26] MEDS: PANTOPRAZOLE 40 MG TABLET PO SCH (07:14)
[2022-10-26] MEDS: lisinopriL 5 MG TABLET PO SCH (08:01)
[2022-10-26] MEDS: CLOPIDOGREL 75 MG TABLET PO SCH (08:02)
[2022-10-26] MEDS: SENNA 8.6 MG TABLET PO SCH (08:02)
[2022-10-26] MEDS: ATORVASTATIN 40 MG TABLET PO SCH (08:02)
[2022-10-26] MEDS: DOCUSATE SODIUM 250 MG CAPSULE PO SCH (08:02)
[2022-10-26] MEDS: amLODIPine 5 MG TABLET PO SCH (08:02)
[2022-10-26] MEDS: polyethylene glycoL 3350 17 GM PACKET PO SCH (08:03)
[2022-10-27] MEDS: PANTOPRAZOLE 40 MG TABLET PO SCH (07:07)
[2022-10-27] MEDS: lisinopriL 5 MG TABLET PO SCH (07:54)
[2022-10-27] MEDS: DOCUSATE SODIUM 250 MG CAPSULE PO SCH (07:54)
[2022-10-27] MEDS: polyethylene glycoL 3350 17 GM PACKET PO SCH (07:54)
[2022-10-27] MEDS: SENNA 8.6 MG TABLET PO SCH (07:55)
[2022-10-27] MEDS: CLOPIDOGREL 75 MG TABLET PO SCH (07:55)
[2022-10-27] MEDS: amLODIPine 5 MG TABLET PO SCH (07:55)
[2022-10-27] MEDS: ATORVASTATIN 40 MG TABLET PO SCH (07:55)
--- NOTE | 2022-10-27 12:51 | ED Physician Documentation ---
ED Addendum - Addendum Addendum: 10/27/22 12:50 No concerns or notes noted on nursing notes. Patient reportedly doing okay at this time this morning. Social work notes from yesterday states [facility] the [facility] and also [facility] without any real new information provided. Continue current treatment plans and care.
[2022-10-28] MEDS: PANTOPRAZOLE 40 MG TABLET PO SCH (06:02)
[2022-10-28] MEDS: DOCUSATE SODIUM 250 MG CAPSULE PO SCH (10:03)
[2022-10-28] MEDS: CLOPIDOGREL 75 MG TABLET PO SCH (10:03)
[2022-10-28] MEDS: ATORVASTATIN 40 MG TABLET PO SCH (10:03)
[2022-10-28] MEDS: lisinopriL 5 MG TABLET PO SCH (10:03)
[2022-10-28] MEDS: polyethylene glycoL 3350 17 GM PACKET PO SCH (10:03)
[2022-10-28] MEDS: amLODIPine 5 MG TABLET PO SCH (10:03)
[2022-10-28] MEDS: SENNA 8.6 MG TABLET PO SCH (10:04)
--- NOTE | 2022-10-28 21:27 | ED Physician Documentation ---
ED Addendum - Addendum Addendum: 10/28/22 21:26 No noted change in status. [facility] the [facility] according to Note. Continue current treatments.
[2022-10-29] MEDS: PANTOPRAZOLE 40 MG TABLET PO SCH (06:45)
[2022-10-29] MEDS: SENNA 8.6 MG TABLET PO SCH (08:10)
[2022-10-29] MEDS: polyethylene glycoL 3350 17 GM PACKET PO SCH (08:10)
[2022-10-29] MEDS: ATORVASTATIN 40 MG TABLET PO SCH (08:10)
[2022-10-29] MEDS: lisinopriL 5 MG TABLET PO SCH (08:10)
[2022-10-29] MEDS: DOCUSATE SODIUM 250 MG CAPSULE PO SCH (08:10)
[2022-10-29] MEDS: CLOPIDOGREL 75 MG TABLET PO SCH (08:10)
[2022-10-29] MEDS: amLODIPine 5 MG TABLET PO SCH (08:11)
--- NOTE | 2022-10-29 23:29 | ED Physician Documentation ---
ED Addendum - Addendum Addendum: 10/29/22 23:28 seen earlier this morning briefly. APpeared well without complaint. No change in treatment plan at this time.
[2022-10-30] MEDS: lisinopriL 5 MG TABLET PO SCH (07:56)
[2022-10-30] MEDS: CLOPIDOGREL 75 MG TABLET PO SCH ×2 (07:56→07:57)
[2022-10-30] MEDS: amLODIPine 5 MG TABLET PO SCH (07:56)
[2022-10-30] MEDS: PANTOPRAZOLE 40 MG TABLET PO SCH (07:56)
[2022-10-30] MEDS: polyethylene glycoL 3350 17 GM PACKET PO SCH (07:58)
[2022-10-30] MEDS: DOCUSATE SODIUM 250 MG CAPSULE PO SCH (08:00)
[2022-10-30] MEDS: SENNA 8.6 MG TABLET PO SCH (08:00)
[2022-10-30] MEDS: ATORVASTATIN 40 MG TABLET PO SCH (08:00)
--- NOTE | 2022-10-30 19:51 | ED Physician Documentation ---
ED Addendum - Addendum Addendum: 10/30/22 19:50 77-year-old with advancing dementia is watching TV today watching the 3 stooges, says that he has been getting out and doing his walking in the [place] and otherwise feels well.
[2022-10-31] MEDS: PANTOPRAZOLE 40 MG TABLET PO SCH (06:10)
[2022-10-31] MEDS: ATORVASTATIN 40 MG TABLET PO SCH (08:18)
[2022-10-31] MEDS: DOCUSATE SODIUM 250 MG CAPSULE PO SCH (08:18)
[2022-10-31] MEDS: polyethylene glycoL 3350 17 GM PACKET PO SCH (08:18)
[2022-10-31] MEDS: SENNA 8.6 MG TABLET PO SCH (08:18)
[2022-10-31] MEDS: CLOPIDOGREL 75 MG TABLET PO SCH (08:18)
[2022-10-31] MEDS: amLODIPine 5 MG TABLET PO SCH (08:18)
[2022-10-31] MEDS: lisinopriL 5 MG TABLET PO SCH (08:18)
--- NOTE | 2022-10-31 15:37 | ED Physician Documentation ---
ED Addendum - Addendum Addendum: 10/31/22 15:37 No new problems nor conditions. Continue current treatment plans.
[2022-11-01] MEDS: PANTOPRAZOLE 40 MG TABLET PO SCH (06:26)
[2022-11-01] MEDS: amLODIPine 5 MG TABLET PO SCH (08:36)
[2022-11-01] MEDS: ATORVASTATIN 40 MG TABLET PO SCH (08:36)
[2022-11-01] MEDS: DOCUSATE SODIUM 250 MG CAPSULE PO SCH (08:36)
[2022-11-01] MEDS: polyethylene glycoL 3350 17 GM PACKET PO SCH (08:37)
[2022-11-01] MEDS: lisinopriL 5 MG TABLET PO SCH (08:37)
[2022-11-01] MEDS: SENNA 8.6 MG TABLET PO SCH (08:37)
[2022-11-02] MEDS: PANTOPRAZOLE 40 MG TABLET PO SCH (06:48)
[2022-11-02] MEDS: CLOPIDOGREL 75 MG TABLET PO SCH (09:10)
[2022-11-02] MEDS: DOCUSATE SODIUM 250 MG CAPSULE PO SCH (09:10)
[2022-11-02] MEDS: ATORVASTATIN 40 MG TABLET PO SCH (09:10)
[2022-11-02] MEDS: SENNA 8.6 MG TABLET PO SCH (09:11)
[2022-11-02] MEDS: polyethylene glycoL 3350 17 GM PACKET PO SCH (09:11)
[2022-11-02] MEDS: lisinopriL 5 MG TABLET PO SCH (09:11)
[2022-11-02] MEDS: amLODIPine 5 MG TABLET PO SCH (09:11)
--- NOTE | 2022-11-02 09:25 | ED Physician Documentation ---
ED Addendum - Addendum Addendum: 11/02/22 09:24 Social work notes reflect increased to the case management to see if there is any way to expedite the [facility] for [facility]. Will await any further notifications. Otherwise nursing notes reflect normal care and intake. Apparently drank last last night but still urinating. Normal bowel movement. No apparent problems. Plan continue current treatments.
[2022-11-03] MEDS: PANTOPRAZOLE 40 MG TABLET PO SCH (06:43)
[2022-11-03] MEDS: polyethylene glycoL 3350 17 GM PACKET PO SCH (09:11)
[2022-11-03] MEDS: ATORVASTATIN 40 MG TABLET PO SCH (09:11)
[2022-11-03] MEDS: SENNA 8.6 MG TABLET PO SCH (09:11)
[2022-11-03] MEDS: DOCUSATE SODIUM 250 MG CAPSULE PO SCH (09:11)
[2022-11-03] MEDS: amLODIPine 5 MG TABLET PO SCH (09:11)
[2022-11-03] MEDS: lisinopriL 5 MG TABLET PO SCH (09:11)
[2022-11-03] MEDS: CLOPIDOGREL 75 MG TABLET PO SCH (09:11)
--- NOTE | 2022-11-03 11:34 | ED Physician Documentation ---
ED Addendum - Addendum Addendum: 11/03/22 11:34 Patient voicing no complaints. Continues to board for placement. Recent nursing notes and social work notes reviewed.
[2022-11-04] MEDS: PANTOPRAZOLE 40 MG TABLET PO SCH (06:49)
[2022-11-04] MEDS: SENNA 8.6 MG TABLET PO SCH (08:57)
[2022-11-04] MEDS: DOCUSATE SODIUM 250 MG CAPSULE PO SCH (08:57)
[2022-11-04] MEDS: ATORVASTATIN 40 MG TABLET PO SCH (08:57)
[2022-11-04] MEDS: lisinopriL 5 MG TABLET PO SCH (08:57)
[2022-11-04] MEDS: amLODIPine 5 MG TABLET PO SCH (08:58)
[2022-11-04] MEDS: polyethylene glycoL 3350 17 GM PACKET PO SCH (08:58)
[2022-11-04] MEDS: CLOPIDOGREL 75 MG TABLET PO SCH (08:58)
--- NOTE | 2022-11-04 18:48 | ED Physician Documentation ---
ED Addendum - Addendum Addendum: 11/04/22 18:47 There is some social work notes from yesterday about contacting outside services. It does not seem like much progress has been made by [facility]. The patient remains pretty much the same. No complaints or problems this morning. Continue current treatment.
[2022-11-05] MEDS: PANTOPRAZOLE 40 MG TABLET PO SCH (07:00)
[2022-11-05] MEDS: lisinopriL 5 MG TABLET PO SCH (08:53)
[2022-11-05] MEDS: DOCUSATE SODIUM 250 MG CAPSULE PO SCH (08:53)
[2022-11-05] MEDS: ATORVASTATIN 40 MG TABLET PO SCH (08:53)
[2022-11-05] MEDS: CLOPIDOGREL 75 MG TABLET PO SCH (08:53)
[2022-11-05] MEDS: amLODIPine 5 MG TABLET PO SCH (08:53)
[2022-11-05] MEDS: SENNA 8.6 MG TABLET PO SCH (08:54)
[2022-11-05] MEDS: polyethylene glycoL 3350 17 GM PACKET PO SCH (08:54)
--- NOTE | 2022-11-05 12:59 | ED Physician Documentation ---
ED Addendum - Addendum Addendum: Patient remains boarding awaiting long-term placement. No acute issues identified. Recent social work and nursing notes reviewed.
[2022-11-06] MEDS: PANTOPRAZOLE 40 MG TABLET PO SCH (06:19)
[2022-11-06] MEDS: DOCUSATE SODIUM 250 MG CAPSULE PO SCH (08:28)
[2022-11-06] MEDS: lisinopriL 5 MG TABLET PO SCH (08:28)
[2022-11-06] MEDS: SENNA 8.6 MG TABLET PO SCH (08:28)
[2022-11-06] MEDS: CLOPIDOGREL 75 MG TABLET PO SCH (08:29)
[2022-11-06] MEDS: ATORVASTATIN 40 MG TABLET PO SCH (08:29)
[2022-11-06] MEDS: polyethylene glycoL 3350 17 GM PACKET PO SCH (08:29)
[2022-11-06] MEDS: amLODIPine 5 MG TABLET PO SCH (08:29)
[2022-11-07] MEDS: PANTOPRAZOLE 40 MG TABLET PO SCH (06:29)
[2022-11-07] MEDS: amLODIPine 5 MG TABLET PO SCH (08:27)
[2022-11-07] MEDS: DOCUSATE SODIUM 250 MG CAPSULE PO SCH (08:27)
[2022-11-07] MEDS: lisinopriL 5 MG TABLET PO SCH (08:27)
[2022-11-07] MEDS: SENNA 8.6 MG TABLET PO SCH (08:28)
[2022-11-07] MEDS: CLOPIDOGREL 75 MG TABLET PO SCH (08:28)
[2022-11-07] MEDS: ATORVASTATIN 40 MG TABLET PO SCH (08:28)
[2022-11-07] MEDS: polyethylene glycoL 3350 17 GM PACKET PO SCH (08:28)
--- NOTE | 2022-11-07 19:24 | ED Physician Documentation ---
ED Addendum - Addendum Addendum: 11/06/22: Per med/surg c d area supervisor, they are planning to move patient into new room today (2209) to allow clean of his current room and slight change of setting. Pt remains boarding awaiting [facility] placement. 11/07/22: Pt remains boarding awaiting putter in placement. No acute events overnight. RN notes reviewed.
[2022-11-08] MEDS: PANTOPRAZOLE 40 MG TABLET PO SCH (07:48)
[2022-11-08] MEDS: DOCUSATE SODIUM 250 MG CAPSULE PO SCH (09:49)
[2022-11-08] MEDS: CLOPIDOGREL 75 MG TABLET PO SCH (09:49)
[2022-11-08] MEDS: amLODIPine 5 MG TABLET PO SCH (09:49)
[2022-11-08] MEDS: lisinopriL 5 MG TABLET PO SCH (09:49)
[2022-11-08] MEDS: ATORVASTATIN 40 MG TABLET PO SCH (09:49)
[2022-11-08] MEDS: polyethylene glycoL 3350 17 GM PACKET PO SCH (09:50)
[2022-11-08] MEDS: SENNA 8.6 MG TABLET PO SCH (09:50)
[2022-11-09] MEDS: PANTOPRAZOLE 40 MG TABLET PO SCH (06:54)
--- NOTE | 2022-11-09 07:36 | ED Physician Documentation ---
ED Addendum - Addendum Addendum: 11/09/22 07:30 Patient assessed, watching TV, no complaints. Discussed with patient's nurse, no changes since yesterday. Pending placement
[2022-11-09] MEDS: DOCUSATE SODIUM 250 MG CAPSULE PO SCH (07:54)
[2022-11-09] MEDS: polyethylene glycoL 3350 17 GM PACKET PO SCH (07:55)
[2022-11-09] MEDS: ATORVASTATIN 40 MG TABLET PO SCH (07:55)
[2022-11-09] MEDS: CLOPIDOGREL 75 MG TABLET PO SCH (07:55)
[2022-11-09] MEDS: SENNA 8.6 MG TABLET PO SCH (07:55)
[2022-11-09] MEDS: amLODIPine 5 MG TABLET PO SCH (07:55)
[2022-11-09] MEDS: lisinopriL 5 MG TABLET PO SCH (07:55)
[2022-11-10] MEDS: PANTOPRAZOLE 40 MG TABLET PO SCH (06:37)
[2022-11-10] MEDS: ATORVASTATIN 40 MG TABLET PO SCH (07:46)
[2022-11-10] MEDS: amLODIPine 5 MG TABLET PO SCH (07:46)
[2022-11-10] MEDS: CLOPIDOGREL 75 MG TABLET PO SCH (07:46)
[2022-11-10] MEDS: SENNA 8.6 MG TABLET PO SCH (07:46)
[2022-11-10] MEDS: DOCUSATE SODIUM 250 MG CAPSULE PO SCH (07:46)
[2022-11-10] MEDS: lisinopriL 5 MG TABLET PO SCH (07:47)
[2022-11-10] MEDS: polyethylene glycoL 3350 17 GM PACKET PO SCH (07:47)
--- NOTE | 2022-11-10 08:15 | ED Physician Documentation ---
ED Addendum - Addendum Addendum: 11/10/22 08:15 Patient assessed, sitting in ED recliner and eating breakfast. Denies any complaints. No change in status, still pending placement.
[2022-11-11] MEDS: PANTOPRAZOLE 40 MG TABLET PO SCH (06:37)
[2022-11-11] MEDS: CLOPIDOGREL 75 MG TABLET PO SCH (09:12)
[2022-11-11] MEDS: amLODIPine 5 MG TABLET PO SCH (09:12)
[2022-11-11] MEDS: lisinopriL 5 MG TABLET PO SCH (09:13)
[2022-11-11] MEDS: DOCUSATE SODIUM 250 MG CAPSULE PO SCH (09:15)
[2022-11-11] MEDS: SENNA 8.6 MG TABLET PO SCH (09:15)
[2022-11-11] MEDS: polyethylene glycoL 3350 17 GM PACKET PO SCH (09:15)
[2022-11-11] MEDS: ATORVASTATIN 40 MG TABLET PO SCH (09:16)
--- NOTE | 2022-11-11 13:49 | ED Physician Documentation ---
ED Addendum - Addendum Addendum: 11/11/22 13:47 The patient reportedly doing well today. Nursing notes and the nursing supervisor trust accounts do state the patient seems to be having general weakness with ambulation etc. The staff has not been able to get him up as regularly. I ask about reordering physical therapy. He has had had that for a time and April and August according to prior orders. I can reorder it now. Otherwise continue current treatments.
[2022-11-12] MEDS: PANTOPRAZOLE 40 MG TABLET PO SCH (06:28)
[2022-11-12] MEDS: lisinopriL 5 MG TABLET PO SCH (09:17)
[2022-11-12] MEDS: SENNA 8.6 MG TABLET PO SCH (09:17)
[2022-11-12] MEDS: DOCUSATE SODIUM 250 MG CAPSULE PO SCH (09:17)
[2022-11-12] MEDS: CLOPIDOGREL 75 MG TABLET PO SCH (09:18)
[2022-11-12] MEDS: ATORVASTATIN 40 MG TABLET PO SCH (09:18)
[2022-11-12] MEDS: amLODIPine 5 MG TABLET PO SCH (09:18)
[2022-11-12] MEDS: polyethylene glycoL 3350 17 GM PACKET PO SCH (09:19)
[2022-11-12] MEDS: COD LIVER OIL/ZINC OXIDE 113 GM TUBE TOP PRN (09:42)
--- NOTE | 2022-11-12 14:22 | ED Physician Documentation ---
ED Addendum - Addendum Addendum: 11/12/22 14:21 The patient did not have any specific complaints for nursing notes and nursing reinforced steel placing supervisor. The staff had noted he was less vigorous in his walks recently and suggested really consulting physical therapy. I ordered these with OT and PT.
[2022-11-13] MEDS: PANTOPRAZOLE 40 MG TABLET PO SCH (06:54)
[2022-11-13] MEDS: CLOPIDOGREL 75 MG TABLET PO SCH (08:54)
[2022-11-13] MEDS: ATORVASTATIN 40 MG TABLET PO SCH (08:55)
[2022-11-13] MEDS: amLODIPine 5 MG TABLET PO SCH (08:55)
[2022-11-13] MEDS: lisinopriL 5 MG TABLET PO SCH (08:55)
[2022-11-13] MEDS: DOCUSATE SODIUM 250 MG CAPSULE PO SCH (08:55)
[2022-11-13] MEDS: polyethylene glycoL 3350 17 GM PACKET PO SCH (08:55)
[2022-11-13] MEDS: SENNA 8.6 MG TABLET PO SCH (08:55)
[2022-11-14] MEDS: PANTOPRAZOLE 40 MG TABLET PO SCH (05:45)
[2022-11-14] MEDS: DOCUSATE SODIUM 250 MG CAPSULE PO SCH (08:21)
[2022-11-14] MEDS: ATORVASTATIN 40 MG TABLET PO SCH (08:22)
[2022-11-14] MEDS: CLOPIDOGREL 75 MG TABLET PO SCH (08:22)
[2022-11-14] MEDS: amLODIPine 5 MG TABLET PO SCH (08:22)
[2022-11-14] MEDS: lisinopriL 5 MG TABLET PO SCH (08:22)
[2022-11-14] MEDS: SENNA 8.6 MG TABLET PO SCH (08:23)
[2022-11-14] MEDS: polyethylene glycoL 3350 17 GM PACKET PO SCH (08:23)
--- NOTE | 2022-11-14 15:34 | ED Physician Documentation ---
ED Addendum - Addendum Addendum: Pt seen at the bedside This morning. He states he was able to walk outside yesterday and enjoyed his time outside. He is waiting for breakfast and watching something on TV. He currently denies any complaints or concerns. No nursing notes entered from yesterday. Unable to find his nurse to discuss patient's care. Patient continues to be boarding awaiting long-term placement.
[2022-11-15] MEDS: PANTOPRAZOLE 40 MG TABLET PO SCH (06:58)
--- NOTE | 2022-11-15 07:48 | ED Physician Documentation ---
ED Addendum - Addendum Addendum: No acute events overnight. Nursing notes from last 24 hours have been reviewed. Patient remains boarding in the emergency department awaiting long-term placement.
[2022-11-15] MEDS: lisinopriL 5 MG TABLET PO SCH (09:16)
[2022-11-15] MEDS: ATORVASTATIN 40 MG TABLET PO SCH (09:17)
[2022-11-15] MEDS: CLOPIDOGREL 75 MG TABLET PO SCH (09:17)
[2022-11-15] MEDS: amLODIPine 5 MG TABLET PO SCH (09:17)
[2022-11-15] MEDS: SENNA 8.6 MG TABLET PO SCH (09:17)
[2022-11-15] MEDS: polyethylene glycoL 3350 17 GM PACKET PO SCH (09:17)
[2022-11-15] MEDS: DOCUSATE SODIUM 250 MG CAPSULE PO SCH (09:17)
[2022-11-16] MEDS: PANTOPRAZOLE 40 MG TABLET PO SCH (06:30)
[2022-11-16] MEDS: amLODIPine 5 MG TABLET PO SCH (09:31)
[2022-11-16] MEDS: CLOPIDOGREL 75 MG TABLET PO SCH (09:31)
[2022-11-16] MEDS: lisinopriL 5 MG TABLET PO SCH (09:31)
[2022-11-16] MEDS: ATORVASTATIN 40 MG TABLET PO SCH (09:31)
[2022-11-16] MEDS: DOCUSATE SODIUM 250 MG CAPSULE PO SCH (09:32)
[2022-11-16] MEDS: SENNA 8.6 MG TABLET PO SCH (09:32)
[2022-11-16] MEDS: polyethylene glycoL 3350 17 GM PACKET PO SCH (09:32)
--- NOTE | 2022-11-16 16:11 | ED Physician Documentation ---
ED Addendum - Addendum Addendum: 11/16/22 16:05 Late note for 11/08/22 Nothing of substance happened with this patient on my shift.
--- NOTE | 2022-11-17 06:21 | ED Physician Documentation ---
ED Addendum - Addendum Addendum: 11/13/22 08:20 The patient was evaluated briefly and no complaints. No change in treatment indicated.
[2022-11-17] MEDS: PANTOPRAZOLE 40 MG TABLET PO SCH (06:24)
[2022-11-17] MEDS: lisinopriL 5 MG TABLET PO SCH (08:26)
[2022-11-17] MEDS: DOCUSATE SODIUM 250 MG CAPSULE PO SCH (08:26)
[2022-11-17] MEDS: ATORVASTATIN 40 MG TABLET PO SCH (08:27)
[2022-11-17] MEDS: SENNA 8.6 MG TABLET PO SCH (08:27)
[2022-11-17] MEDS: amLODIPine 5 MG TABLET PO SCH (08:27)
[2022-11-17] MEDS: polyethylene glycoL 3350 17 GM PACKET PO SCH (08:27)
[2022-11-17] MEDS: CLOPIDOGREL 75 MG TABLET PO SCH (08:27)
--- NOTE | 2022-11-17 09:13 | ED Physician Documentation ---
ED Addendum - Addendum Addendum: 11/17/22 09:12 No apparent forward motion and social service and placement. Nursing notes describe baseline level of care without any changes indicated.
[2022-11-18] MEDS: PANTOPRAZOLE 40 MG TABLET PO SCH (06:56)
[2022-11-18] MEDS: CLOPIDOGREL 75 MG TABLET PO SCH (08:14)
[2022-11-18] MEDS: amLODIPine 5 MG TABLET PO SCH (08:14)
[2022-11-18] MEDS: ATORVASTATIN 40 MG TABLET PO SCH (08:14)
[2022-11-18] MEDS: DOCUSATE SODIUM 250 MG CAPSULE PO SCH (08:14)
[2022-11-18] MEDS: SENNA 8.6 MG TABLET PO SCH (08:14)
[2022-11-18] MEDS: polyethylene glycoL 3350 17 GM PACKET PO SCH (08:15)
[2022-11-18] MEDS: lisinopriL 5 MG TABLET PO SCH (08:15)
--- NOTE | 2022-11-18 17:23 | ED Physician Documentation ---
ED Addendum - Addendum Addendum: 11/18/22 17:22 Reports on morning rounds with nursing with the patient is still trying to get [facility] privileges for coverage improved and also applying for Medicaid which apparently the patient's son had not done. The disposition is still a major work in progress. The patient himself was not having any particular complaints. Continue current present treatments.
[2022-11-19] MEDS: PANTOPRAZOLE 40 MG TABLET PO SCH (06:41)
[2022-11-19] MEDS: lisinopriL 5 MG TABLET PO SCH (08:14)
[2022-11-19] MEDS: amLODIPine 5 MG TABLET PO SCH (08:14)
[2022-11-19] MEDS: SENNA 8.6 MG TABLET PO SCH (08:15)
[2022-11-19] MEDS: DOCUSATE SODIUM 250 MG CAPSULE PO SCH (08:15)
[2022-11-19] MEDS: ATORVASTATIN 40 MG TABLET PO SCH (08:15)
[2022-11-19] MEDS: CLOPIDOGREL 75 MG TABLET PO SCH (08:15)
[2022-11-19] MEDS: polyethylene glycoL 3350 17 GM PACKET PO SCH (08:15)
--- NOTE | 2022-11-19 17:43 | ED Physician Documentation ---
ED Addendum - Addendum Addendum: 11/19/22 17:42 Social service note states they did send a letter to the [facility] to try to advance his care and more expedited. Physical therapy and rehab saw the patient today and wrote notes. No concerns through nursing notes nor from the nursing supervisor pumping station. Continue with current treatment and plan.
[2022-11-20] MEDS: PANTOPRAZOLE 40 MG TABLET PO SCH (06:27)
[2022-11-20] MEDS: DOCUSATE SODIUM 250 MG CAPSULE PO SCH (08:02)
[2022-11-20] MEDS: CLOPIDOGREL 75 MG TABLET PO SCH (08:02)
[2022-11-20] MEDS: SENNA 8.6 MG TABLET PO SCH (08:02)
[2022-11-20] MEDS: ATORVASTATIN 40 MG TABLET PO SCH (08:02)
[2022-11-20] MEDS: amLODIPine 5 MG TABLET PO SCH (08:03)
[2022-11-20] MEDS: lisinopriL 5 MG TABLET PO SCH (08:03)
[2022-11-20] MEDS: polyethylene glycoL 3350 17 GM PACKET PO SCH (08:04)
[2022-11-21] MEDS: PANTOPRAZOLE 40 MG TABLET PO SCH (06:51)
[2022-11-21] MEDS: CLOPIDOGREL 75 MG TABLET PO SCH (08:30)
[2022-11-21] MEDS: ATORVASTATIN 40 MG TABLET PO SCH (08:30)
[2022-11-21] MEDS: amLODIPine 5 MG TABLET PO SCH (08:30)
[2022-11-21] MEDS: DOCUSATE SODIUM 250 MG CAPSULE PO SCH (08:30)
[2022-11-21] MEDS: lisinopriL 5 MG TABLET PO SCH (08:30)
[2022-11-21] MEDS: polyethylene glycoL 3350 17 GM PACKET PO SCH (08:31)
[2022-11-21] MEDS: SENNA 8.6 MG TABLET PO SCH (08:31)
--- NOTE | 2022-11-21 19:01 | ED Physician Documentation ---
ED Addendum - Addendum Addendum: 11/21/22 19:00 The patient was signed out to me at change of shift, continuing to pend long- term care placement and continuing to board in the hospital on the general floor under ED care. The patient had no acute issues arise throughout the day. He took his medications as directed and ate his meals. Nursing staff reported no problems. Social work continues to work to find placement for this patient, and he is signed out to the oncoming emergency physician, continuing to pend final disposition.
--- NOTE | 2022-11-21 21:31 | ED Physician Documentation ---
ED Addendum - Addendum Addendum: 11/20/22 18:00 checked on patient at end of my shift. He was watching TV. No complaints.
[2022-11-22] MEDS: PANTOPRAZOLE 40 MG TABLET PO SCH (06:23)
[2022-11-22] MEDS: DOCUSATE SODIUM 250 MG CAPSULE PO SCH (08:44)
[2022-11-22] MEDS: SENNA 8.6 MG TABLET PO SCH (08:44)
[2022-11-22] MEDS: ATORVASTATIN 40 MG TABLET PO SCH (08:44)
[2022-11-22] MEDS: lisinopriL 5 MG TABLET PO SCH (08:44)
[2022-11-22] MEDS: amLODIPine 5 MG TABLET PO SCH (08:44)
[2022-11-22] MEDS: CLOPIDOGREL 75 MG TABLET PO SCH (08:45)
[2022-11-22] MEDS: polyethylene glycoL 3350 17 GM PACKET PO SCH (08:45)
[2022-11-23] MEDS: PANTOPRAZOLE 40 MG TABLET PO SCH (06:34)
--- NOTE | 2022-11-23 08:09 | ED Physician Documentation ---
ED Addendum - Addendum Addendum: 11/23/22 08:05 Patient evaluated independently at bedside at approximately 0800 hrs. Found to be sitting at the side of his bed enjoying breakfast. Denies any acute complaints.
[2022-11-23] MEDS: amLODIPine 5 MG TABLET PO SCH (08:13)
[2022-11-23] MEDS: DOCUSATE SODIUM 250 MG CAPSULE PO SCH (08:13)
[2022-11-23] MEDS: polyethylene glycoL 3350 17 GM PACKET PO SCH (08:13)
[2022-11-23] MEDS: SENNA 8.6 MG TABLET PO SCH (08:13)
[2022-11-23] MEDS: lisinopriL 5 MG TABLET PO SCH (08:13)
[2022-11-23] MEDS: ATORVASTATIN 40 MG TABLET PO SCH (08:13)
[2022-11-23] MEDS: CLOPIDOGREL 75 MG TABLET PO SCH (08:13)
[2022-11-24] MEDS: PANTOPRAZOLE 40 MG TABLET PO SCH (07:15)
[2022-11-24] MEDS: DOCUSATE SODIUM 250 MG CAPSULE PO SCH (08:02)
[2022-11-24] MEDS: SENNA 8.6 MG TABLET PO SCH (08:02)
[2022-11-24] MEDS: ATORVASTATIN 40 MG TABLET PO SCH (08:02)
[2022-11-24] MEDS: amLODIPine 5 MG TABLET PO SCH (08:02)
[2022-11-24] MEDS: CLOPIDOGREL 75 MG TABLET PO SCH (08:02)
[2022-11-24] MEDS: lisinopriL 5 MG TABLET PO SCH (08:02)
[2022-11-24] MEDS: polyethylene glycoL 3350 17 GM PACKET PO SCH (14:59)
--- NOTE | 2022-11-24 16:57 | ED Physician Documentation ---
ED Addendum - Addendum Addendum: 11/24/22 16:56 Social work notes state the patient was out walking on the [place] with the social work lecturer and had conversation. No problems identified on nursing notes. Continue with current plan and treatments.
[2022-11-25] MEDS: PANTOPRAZOLE 40 MG TABLET PO SCH (06:21)
--- NOTE | 2022-11-25 07:32 | ED Physician Documentation ---
ED Addendum - Addendum Addendum: 11/25/22 07:30 Met with the patient just now. He was having a good morning. He was watching TV but also finishing up breakfast snack. He states he is happy with his room and that has a good view. Nursing and social work notes state he has been up and ambulatory to [facility] and also walked out in the Courty[place] yesterday or the day before. He had no particular complaints at this time. Continue current treatment plans.
[2022-11-25] MEDS: polyethylene glycoL 3350 17 GM PACKET PO SCH (07:55)
[2022-11-25] MEDS: CLOPIDOGREL 75 MG TABLET PO SCH (08:02)
[2022-11-25] MEDS: lisinopriL 5 MG TABLET PO SCH (08:02)
[2022-11-25] MEDS: SENNA 8.6 MG TABLET PO SCH (08:02)
[2022-11-25] MEDS: amLODIPine 5 MG TABLET PO SCH (08:02)
[2022-11-25] MEDS: DOCUSATE SODIUM 250 MG CAPSULE PO SCH (08:02)
[2022-11-25] MEDS: ATORVASTATIN 40 MG TABLET PO SCH (08:02)
[2022-11-26] MEDS: PANTOPRAZOLE 40 MG TABLET PO SCH (06:35)
[2022-11-26] MEDS: DOCUSATE SODIUM 250 MG CAPSULE PO SCH (08:24)
[2022-11-26] MEDS: amLODIPine 5 MG TABLET PO SCH (08:25)
[2022-11-26] MEDS: polyethylene glycoL 3350 17 GM PACKET PO SCH (08:25)
[2022-11-26] MEDS: SENNA 8.6 MG TABLET PO SCH (08:25)
[2022-11-26] MEDS: ATORVASTATIN 40 MG TABLET PO SCH (08:25)
[2022-11-26] MEDS: CLOPIDOGREL 75 MG TABLET PO SCH (08:25)
[2022-11-26] MEDS: lisinopriL 5 MG TABLET PO SCH (08:25)
--- NOTE | 2022-11-26 14:14 | ED Physician Documentation ---
ED Addendum - Addendum Addendum: 11/26/22 14:14 Patient was napping when I rounded on him and he was not aroused for exam. There was an old Western movie playing on the TV and he appeared comfortable. Recent nurses notes and social work notes reviewed. Does not seem to be any change in status.
[2022-11-27] MEDS: PANTOPRAZOLE 40 MG TABLET PO SCH (07:27)
[2022-11-27] MEDS: amLODIPine 5 MG TABLET PO SCH (09:25)
[2022-11-27] MEDS: CLOPIDOGREL 75 MG TABLET PO SCH (09:25)
[2022-11-27] MEDS: DOCUSATE SODIUM 250 MG CAPSULE PO SCH (09:25)
[2022-11-27] MEDS: ATORVASTATIN 40 MG TABLET PO SCH (09:25)
[2022-11-27] MEDS: SENNA 8.6 MG TABLET PO SCH (09:25)
[2022-11-27] MEDS: lisinopriL 5 MG TABLET PO SCH (09:25)
[2022-11-27] MEDS: polyethylene glycoL 3350 17 GM PACKET PO SCH (09:26)
--- NOTE | 2022-11-27 12:58 | ED Physician Documentation ---
ED Addendum - Addendum Addendum: Patient seen in his room this morning. He is sitting in the chair eating lunch and watching a show. He denies any complaints or concerns. He walked around with physical therapy this morning. Per his RN there are no acute needs or issues. Reviewed social work note from 11/26/22 which appears that patient has been assigned a guardian.
[2022-11-28] MEDS: PANTOPRAZOLE 40 MG TABLET PO SCH (06:35)
[2022-11-28] MEDS: lisinopriL 5 MG TABLET PO SCH (08:13)
[2022-11-28] MEDS: DOCUSATE SODIUM 250 MG CAPSULE PO SCH (08:13)
[2022-11-28] MEDS: CLOPIDOGREL 75 MG TABLET PO SCH (08:13)
[2022-11-28] MEDS: SENNA 8.6 MG TABLET PO SCH (08:13)
[2022-11-28] MEDS: ATORVASTATIN 40 MG TABLET PO SCH (08:13)
[2022-11-28] MEDS: polyethylene glycoL 3350 17 GM PACKET PO SCH (08:13)
[2022-11-28] MEDS: amLODIPine 5 MG TABLET PO SCH (08:13)
--- NOTE | 2022-11-28 13:04 | ED Physician Documentation ---
ED Addendum - Addendum Addendum: 11/28/22 13:02 After over 5000 hours on the emergency department log the patient is feeling well wants to go home. Today he is watching television watching superman and wonder woman. Indicates he is ready to go outside. On my evaluation the patient appears to have general overall improvement since arrival to the emergency department and we continue to await a formal disposition.
[2022-11-29] MEDS: PANTOPRAZOLE 40 MG TABLET PO SCH (07:03)
[2022-11-29] MEDS: DOCUSATE SODIUM 250 MG CAPSULE PO SCH (08:19)
[2022-11-29] MEDS: lisinopriL 5 MG TABLET PO SCH (08:20)
[2022-11-29] MEDS: SENNA 8.6 MG TABLET PO SCH (08:20)
[2022-11-29] MEDS: CLOPIDOGREL 75 MG TABLET PO SCH (08:20)
[2022-11-29] MEDS: ATORVASTATIN 40 MG TABLET PO SCH (08:20)
[2022-11-29] MEDS: amLODIPine 5 MG TABLET PO SCH (08:20)
[2022-11-29] MEDS: polyethylene glycoL 3350 17 GM PACKET PO SCH (12:14)
--- NOTE | 2022-11-29 20:57 | ED Physician Documentation ---
ED Addendum - Addendum Addendum: 11/29/22 20:55 No new problems identified by nursing notes/report. Continue current treatments. Patient ambulatory with staff today. 11/29/22 20:57
[2022-11-30] MEDS: PANTOPRAZOLE 40 MG TABLET PO SCH (06:45)
[2022-11-30] MEDS: SENNA 8.6 MG TABLET PO SCH (08:00)
[2022-11-30] MEDS: CLOPIDOGREL 75 MG TABLET PO SCH (08:01)
[2022-11-30] MEDS: ATORVASTATIN 40 MG TABLET PO SCH (08:01)
[2022-11-30] MEDS: amLODIPine 5 MG TABLET PO SCH (08:02)
[2022-11-30] MEDS: lisinopriL 5 MG TABLET PO SCH (08:02)
[2022-11-30] MEDS: DOCUSATE SODIUM 250 MG CAPSULE PO SCH (08:02)
[2022-11-30] MEDS: polyethylene glycoL 3350 17 GM PACKET PO SCH (08:02)
--- NOTE | 2022-11-30 14:20 | ED Physician Documentation ---
ED Addendum - Addendum Addendum: 11/30/22 14:17 The patient was out with physical therapy for a walk. Notes state he had been outside to [facility] and then on the way back did walk from the hallway door back to his room. Charge nurse noted during morning board rounds that the patient had seemed less energetic and less interested in going for walks and showing a little bit of general weakness over the last week or 2. I noted we had not checked just basic labs recently. I placed an order for just basic CBC and chemistry panel and thyroid screen just to update and see if any abnormalities there.
[2022-11-30 14:35] LABS: BASOPHILS % (AUTO) 0.4 %; EOSINOPHILS # (AUTO) 0.3 10^3/uL (0.0-0.7); EOSINOPHILS % (AUTO) 4.2 %; HCT - HEMATOCRIT 42.7 % (42.0-52.0); HGB - HEMOGLOBIN 13.6 g/dL (14.0-18.0); LYMPHOCYTES # (AUTO) 1.8 10^3/uL (1.5-3.5); MEAN CORPUSCULAR HEMOGLOBIN 29.6 pg (27.0-31.0); MEAN CORPUSCULAR HGB CONC 31.9 g/dL (32.0-36.0); MEAN CORPUSCULAR VOLUME 92.8 fL (80.0-94.0); MEAN PLATELET VOLUME 9.9 fL (7.4-11.4); MONOCYTES # (AUTO) 0.6 10^3/uL (0.0-1.0); MONOCYTES % (AUTO) 8.6 %; NEUTROPHILS % (AUTO) 59.4 %; PLT - PLATELET COUNT 210 10^3/uL (130-450); RED CELL DISTRIBUTION WIDTH 13.5 % (12.0-15.0); WHITE BLOOD COUNT 6.7 x10^3/uL (4.8-10.8)
[2022-11-30 15:00] LABS: ALBUMIN 4.2 g/dL (3.2-5.5); ALBUMIN/GLOBULIN RATIO 1.4 (1.0-2.2); BILIRUBIN,TOTAL 0.4 mg/dL (0.2-1.0); CALCIUM 9.3 mg/dL (8.5-10.3); CREATININE 1.4 mg/dL (0.6-1.3); POTASSIUM 4.1 mmol/L (3.5-4.5); TOTAL PROTEIN 7.3 g/dL (6.4-8.9)
[2022-11-30 15:03] LABS: THYROID STIMULATING HORMONE 2.87 uIU/mL (0.34-5.60)
[2022-12-01] MEDS: PANTOPRAZOLE 40 MG TABLET PO SCH (06:21)
--- NOTE | 2022-12-01 08:22 | ED Physician Documentation ---
ED Addendum - Addendum Addendum: 12/01/22 08:21 No acute changes overnight. Patient continues to board awaiting placement. Hospital administration states that the patient's care cannot be transferred to the hospitalist service, so will continue under the care of the emergency department. No new changes
[2022-12-01] MEDS: lisinopriL 5 MG TABLET PO SCH (08:40)
[2022-12-01] MEDS: amLODIPine 5 MG TABLET PO SCH (08:40)
[2022-12-01] MEDS: CLOPIDOGREL 75 MG TABLET PO SCH (08:40)
[2022-12-01] MEDS: ATORVASTATIN 40 MG TABLET PO SCH (08:41)
[2022-12-01] MEDS: DOCUSATE SODIUM 250 MG CAPSULE PO SCH (08:41)
[2022-12-01] MEDS: polyethylene glycoL 3350 17 GM PACKET PO SCH (08:41)
[2022-12-01] MEDS: SENNA 8.6 MG TABLET PO SCH (08:41)
[2022-12-01] MEDS ORDERED: HALOPERIDOL 5 MG/ML VIAL IM STA (09:16)
[2022-12-02] MEDS: PANTOPRAZOLE 40 MG TABLET PO SCH (07:21)
--- NOTE | 2022-12-02 08:10 | ED Physician Documentation ---
ED Addendum - Addendum Addendum: No events overnight. No change in patient's status. Patient has been ambulating in the hallways and eating his meals. Patient remains boarding awaiting long-term placement.
[2022-12-02] MEDS: DOCUSATE SODIUM 250 MG CAPSULE PO SCH (08:49)
[2022-12-02] MEDS: ATORVASTATIN 40 MG TABLET PO SCH (08:49)
[2022-12-02] MEDS: CLOPIDOGREL 75 MG TABLET PO SCH (08:50)
[2022-12-02] MEDS: lisinopriL 5 MG TABLET PO SCH (08:50)
[2022-12-02] MEDS: polyethylene glycoL 3350 17 GM PACKET PO SCH (08:50)
[2022-12-02] MEDS: amLODIPine 5 MG TABLET PO SCH (08:50)
[2022-12-02] MEDS: SENNA 8.6 MG TABLET PO SCH (08:50)
[2022-12-03] MEDS: PANTOPRAZOLE 40 MG TABLET PO SCH (06:34)
[2022-12-03] MEDS: lisinopriL 5 MG TABLET PO SCH (08:23)
[2022-12-03] MEDS: DOCUSATE SODIUM 250 MG CAPSULE PO SCH (08:23)
[2022-12-03] MEDS: polyethylene glycoL 3350 17 GM PACKET PO SCH (08:23)
[2022-12-03] MEDS: CLOPIDOGREL 75 MG TABLET PO SCH (08:23)
[2022-12-03] MEDS: amLODIPine 5 MG TABLET PO SCH (08:23)
[2022-12-03] MEDS: ATORVASTATIN 40 MG TABLET PO SCH (08:23)
[2022-12-03] MEDS: SENNA 8.6 MG TABLET PO SCH (08:24)
--- NOTE | 2022-12-03 14:22 | ED Physician Documentation ---
ED Addendum - Addendum Addendum: 12/03/22 14:20 No reported problems. Patient reportedly had a quite large bowel movement today. We have checked basic labs 2 days ago as nursing reported him seeming less energetic. Basic blood count was good. His chemistry panel showed normal electrolytes. His creatinine was slightly elevated from prior with it now 1.4 and previously 1.1. We will be sure the staff continues to encourage hydration. Otherwise no particular change in plan at this point.
[2022-12-04] MEDS: PANTOPRAZOLE 40 MG TABLET PO SCH (06:18)
[2022-12-04] MEDS: CLOPIDOGREL 75 MG TABLET PO SCH (08:08)
[2022-12-04] MEDS: amLODIPine 5 MG TABLET PO SCH (08:09)
[2022-12-04] MEDS: ATORVASTATIN 40 MG TABLET PO SCH (08:09)
[2022-12-04] MEDS: polyethylene glycoL 3350 17 GM PACKET PO SCH (08:09)
[2022-12-04] MEDS: DOCUSATE SODIUM 250 MG CAPSULE PO SCH (08:09)
[2022-12-04] MEDS: lisinopriL 5 MG TABLET PO SCH (08:09)
[2022-12-04] MEDS: SENNA 8.6 MG TABLET PO SCH (08:09)
--- NOTE | 2022-12-04 23:29 | ED Physician Documentation ---
ED Addendum - Addendum Addendum: 12/04/22 23:28 No note of progress on placement, but SW did talk with [facility] person. No noted change of treatment needed by nursing staff.
[2022-12-05] MEDS: PANTOPRAZOLE 40 MG TABLET PO SCH (07:03)
--- NOTE | 2022-12-05 07:55 | ED Physician Documentation ---
ED Addendum - Addendum Addendum: 12/05/22 07:51 Patient was seen This morning. He is sitting in the chair next to his bed. He is awaiting breakfast and watching TV. He states he was up walking twice yesterday and denies any current concerns or complaints. Per RN who is taking care of him today and has not taken care of him in a few weeks, patient has appeared weaker to her. He is continuing to work with physical therapy. Recommended to continue to encourage mobilization. RN reported that occasionally she hears wheezing but that it improves if he coughs or clears his throat. On auscultation his lung sounds are clear and he denies shortness of air. No wheezing noted on my exam. We will obtain a chest x-ray. 12/05/22 12:54 I have reviewed patient's chest x-ray and see no signs of infiltrate or effusion.
[2022-12-05] MEDS: amLODIPine 5 MG TABLET PO SCH (08:55)
[2022-12-05] MEDS: CLOPIDOGREL 75 MG TABLET PO SCH (08:55)
[2022-12-05] MEDS: lisinopriL 5 MG TABLET PO SCH (08:55)
[2022-12-05] MEDS: DOCUSATE SODIUM 250 MG CAPSULE PO SCH (08:55)
[2022-12-05] MEDS: ATORVASTATIN 40 MG TABLET PO SCH (08:55)
[2022-12-05] MEDS: polyethylene glycoL 3350 17 GM PACKET PO SCH (08:56)
[2022-12-05] MEDS: SENNA 8.6 MG TABLET PO SCH (08:56)
--- NOTE | 2022-12-05 11:04 | XRAY Report ---
PROCEDURE: Chest 1 View X-Ray INDICATIONS: wheezing TECHNIQUE: One view of the chest was acquired. COMPARISON: 09/28/2021 FINDINGS: Surgical changes and devices: None. Lungs and pleura: No pleural effusions or pneumothorax. Lungs are clear. Mediastinum: Mediastinal contours appear normal. Heart size is normal. Bones and chest wall: No suspicious bony lesions. Overlying soft tissues appear unremarkable. IMPRESSION: No acute cardiopulmonary process. Reviewed by: Isac Baldwin MD on 12/05/2022 10:03 AM BRYNN Approved by: sIac Baldwin MD on 12/05/2022 10:03 AM BRYNN Station ID: [id number]
[2022-12-06] MEDS: PANTOPRAZOLE 40 MG TABLET PO SCH (06:52)
[2022-12-06] MEDS: polyethylene glycoL 3350 17 GM PACKET PO SCH (08:09)
[2022-12-06] MEDS: CLOPIDOGREL 75 MG TABLET PO SCH (08:09)
[2022-12-06] MEDS: ATORVASTATIN 40 MG TABLET PO SCH (08:09)
[2022-12-06] MEDS: DOCUSATE SODIUM 250 MG CAPSULE PO SCH (08:09)
[2022-12-06] MEDS: amLODIPine 5 MG TABLET PO SCH (08:09)
[2022-12-06] MEDS: lisinopriL 5 MG TABLET PO SCH (08:10)
[2022-12-06] MEDS: COD LIVER OIL/ZINC OXIDE 113 GM TUBE TOP PRN (08:10)
[2022-12-06] MEDS: SENNA 8.6 MG TABLET PO SCH (08:10)
--- NOTE | 2022-12-06 11:48 | ED Physician Documentation ---
ED Addendum - Addendum Addendum: Patient remains boarding awaiting long-term placement. No significant changes in past 24 hours.
[2022-12-07] MEDS: PANTOPRAZOLE 40 MG TABLET PO SCH (07:33)
[2022-12-07] MEDS: DOCUSATE SODIUM 250 MG CAPSULE PO SCH (08:55)
[2022-12-07] MEDS: SENNA 8.6 MG TABLET PO SCH (08:55)
[2022-12-07] MEDS: amLODIPine 5 MG TABLET PO SCH (08:55)
[2022-12-07] MEDS: CLOPIDOGREL 75 MG TABLET PO SCH (08:55)
[2022-12-07] MEDS: lisinopriL 5 MG TABLET PO SCH (08:56)
[2022-12-07] MEDS: polyethylene glycoL 3350 17 GM PACKET PO SCH (08:56)
[2022-12-07] MEDS: ATORVASTATIN 40 MG TABLET PO SCH (08:56)
--- NOTE | 2022-12-07 09:06 | ED Physician Documentation ---
ED Addendum - Addendum Addendum: 12/07/22 09:03 Back note from 11/22/2022: The pt was signed out to me at change of shift, continuing to board on the medical floor under ED care, and continuing to pend long-term care placement with social work. The pt was stable and no issues were reported by nursing staff. He is signed out to the oncoming emergency physician, continuing to pend final disposition.
--- NOTE | 2022-12-07 16:12 | ED Physician Documentation ---
ED Addendum - Addendum Addendum: Patient remains boarding awaiting long-term placement. Nursing notes reviewed and no acute issues identified. Patient appears to be working with physical therapy, eating his meals, and having regular bowel movements.
[2022-12-08] MEDS: PANTOPRAZOLE 40 MG TABLET PO SCH (06:33)
[2022-12-08] MEDS: CLOPIDOGREL 75 MG TABLET PO SCH (08:03)
[2022-12-08] MEDS: lisinopriL 5 MG TABLET PO SCH (08:03)
[2022-12-08] MEDS: ATORVASTATIN 40 MG TABLET PO SCH (08:03)
[2022-12-08] MEDS: amLODIPine 5 MG TABLET PO SCH (08:03)
[2022-12-08] MEDS: SENNA 8.6 MG TABLET PO SCH (08:03)
[2022-12-08] MEDS: DOCUSATE SODIUM 250 MG CAPSULE PO SCH (08:03)
[2022-12-08] MEDS: polyethylene glycoL 3350 17 GM PACKET PO SCH (08:04)
--- NOTE | 2022-12-08 19:14 | ED Physician Documentation ---
ED Addendum - Addendum Addendum: 12/08/22 19:11 Today preston is watching television feels his usual self he is watching [place] [employer]. Did not make it outside today appears to be well fed and taking care of. Nurses are concerned that he is gaining weight. 12/08/22 19:16
[2022-12-09] MEDS: PANTOPRAZOLE 40 MG TABLET PO SCH (06:19)
[2022-12-09] MEDS: CLOPIDOGREL 75 MG TABLET PO SCH (08:47)
[2022-12-09] MEDS: DOCUSATE SODIUM 250 MG CAPSULE PO SCH (08:47)
[2022-12-09] MEDS: amLODIPine 5 MG TABLET PO SCH (08:47)
[2022-12-09] MEDS: SENNA 8.6 MG TABLET PO SCH (08:47)
[2022-12-09] MEDS: ATORVASTATIN 40 MG TABLET PO SCH (08:47)
[2022-12-09] MEDS: lisinopriL 5 MG TABLET PO SCH (08:50)
[2022-12-09] MEDS: polyethylene glycoL 3350 17 GM PACKET PO SCH (08:50)
--- NOTE | 2022-12-09 18:07 | ED Physician Documentation ---
ED Addendum - Addendum Addendum: 12/09/22 18:06 The patient was signed out to me at change of shift, continuing to board on the medical floor under emergency department management, pending long-term care facility placement. Patient had no issues reported by nursing staff throughout the day. He took all his medications and ate his meals. He continues to be followed by social work to the end that he will be placed in a long-term living situation. He is signed out to the oncoming emergency physician pending this.
[2022-12-10] MEDS: PANTOPRAZOLE 40 MG TABLET PO SCH (06:22)
[2022-12-10] MEDS: lisinopriL 5 MG TABLET PO SCH (08:18)
[2022-12-10] MEDS: amLODIPine 5 MG TABLET PO SCH (08:18)
[2022-12-10] MEDS: CLOPIDOGREL 75 MG TABLET PO SCH (08:18)
[2022-12-10] MEDS: ATORVASTATIN 40 MG TABLET PO SCH (08:18)
[2022-12-10] MEDS: SENNA 8.6 MG TABLET PO SCH (08:18)
[2022-12-10] MEDS: DOCUSATE SODIUM 250 MG CAPSULE PO SCH (08:18)
[2022-12-10] MEDS: polyethylene glycoL 3350 17 GM PACKET PO SCH (08:19)
--- NOTE | 2022-12-10 14:35 | ED Physician Documentation ---
ED Addendum - Addendum Addendum: 12/10/22 14:34 Patient seen at the bedside but was sleeping and not aroused. No acute issues per the DEVELOPMENT LEAD that has been involved in his care. Recent social work and nursing notes reviewed, still awaiting placement.
[2022-12-11] MEDS: PANTOPRAZOLE 40 MG TABLET PO SCH (06:05)
[2022-12-11] MEDS: DOCUSATE SODIUM 250 MG CAPSULE PO SCH (08:19)
[2022-12-11] MEDS: amLODIPine 5 MG TABLET PO SCH (08:19)
[2022-12-11] MEDS: CLOPIDOGREL 75 MG TABLET PO SCH (08:19)
[2022-12-11] MEDS: SENNA 8.6 MG TABLET PO SCH (08:19)
[2022-12-11] MEDS: lisinopriL 5 MG TABLET PO SCH (08:20)
[2022-12-11] MEDS: polyethylene glycoL 3350 17 GM PACKET PO SCH (08:20)
[2022-12-11] MEDS: ATORVASTATIN 40 MG TABLET PO SCH (08:20)
--- NOTE | 2022-12-11 16:46 | ED Physician Documentation ---
ED Addendum - Addendum Addendum: 12/11/22 16:45 No acute problems noted in charting. No change in treatment plan at this time.
[2022-12-12] MEDS: PANTOPRAZOLE 40 MG TABLET PO SCH (06:18)
[2022-12-12] MEDS: lisinopriL 5 MG TABLET PO SCH (08:50)
[2022-12-12] MEDS: SENNA 8.6 MG TABLET PO SCH (08:50)
[2022-12-12] MEDS: ATORVASTATIN 40 MG TABLET PO SCH (08:51)
[2022-12-12] MEDS: amLODIPine 5 MG TABLET PO SCH (08:51)
[2022-12-12] MEDS: DOCUSATE SODIUM 250 MG CAPSULE PO SCH (08:51)
[2022-12-12] MEDS: CLOPIDOGREL 75 MG TABLET PO SCH (08:51)
[2022-12-12] MEDS: polyethylene glycoL 3350 17 GM PACKET PO SCH (08:52)
--- NOTE | 2022-12-12 18:32 | ED Physician Documentation ---
ED Addendum - Addendum Addendum: 12/12/22 18:31 No problems identified on morning rounds this morning. The notes show normal nursing activity. No change indicated at this point.
[2022-12-13] MEDS: PANTOPRAZOLE 40 MG TABLET PO SCH (06:57)
[2022-12-13] MEDS: SENNA 8.6 MG TABLET PO SCH (07:51)
[2022-12-13] MEDS: polyethylene glycoL 3350 17 GM PACKET PO SCH ×2 (07:51→07:52)
[2022-12-13] MEDS: lisinopriL 5 MG TABLET PO SCH (07:51)
[2022-12-13] MEDS: ATORVASTATIN 40 MG TABLET PO SCH (07:51)
[2022-12-13] MEDS: DOCUSATE SODIUM 250 MG CAPSULE PO SCH (07:51)
[2022-12-13] MEDS: amLODIPine 5 MG TABLET PO SCH (07:52)
[2022-12-13] MEDS: CLOPIDOGREL 75 MG TABLET PO SCH (07:52)
--- NOTE | 2022-12-13 18:51 | ED Physician Documentation ---
ED Addendum - Addendum Addendum: 12/13/22 18:51 No acute events overnight. Patient stable and awaiting placement. Recent nursing notes and vital signs reviewed.
[2022-12-14] MEDS: PANTOPRAZOLE 40 MG TABLET PO SCH (06:43)
[2022-12-14] MEDS: polyethylene glycoL 3350 17 GM PACKET PO SCH (07:52)
[2022-12-14] MEDS: DOCUSATE SODIUM 250 MG CAPSULE PO SCH (07:53)
[2022-12-14] MEDS: ATORVASTATIN 40 MG TABLET PO SCH (07:53)
[2022-12-14] MEDS: amLODIPine 5 MG TABLET PO SCH (07:53)
[2022-12-14] MEDS: lisinopriL 5 MG TABLET PO SCH (07:54)
[2022-12-14] MEDS: SENNA 8.6 MG TABLET PO SCH (07:54)
[2022-12-14] MEDS: CLOPIDOGREL 75 MG TABLET PO SCH (07:54)
--- NOTE | 2022-12-14 13:55 | ED Physician Documentation ---
ED Addendum - Addendum Addendum: Patient remains boarding under ED status. Reviewed PT and OT notes from yesterday. Notes continue to express concern for possible Parkinson's and requesting neurology consultation. We do not have a neurologist available for consultation here at the hospital. I discussed this during our morning huddle with members of the hospitalist and administrative team. They are recommending we try and reach out to telestroke to see if the neurologist can evaluate the patient although he is not a stroke patient. Communicated with [facility] who has reached out to neurology at [facility] 12/14/22 15:34 D/W Dr. Hardeep Valentine (Neurology, [facility]) - He would not be able to properly evaluate for Parkinsons with a tele visit as many of the exam findings would require in an person physical exam/evaluation.
[2022-12-15] MEDS: PANTOPRAZOLE 40 MG TABLET PO SCH (06:55)
--- NOTE | 2022-12-15 08:08 | ED Physician Documentation ---
ED Addendum - Addendum Addendum: 12/15/22 08:08 Patient seen in his room this morning. Sitting up at the chair eating breakfast and watching a show with no complaints. He is appreciative for the haircut he received 2 days ago. Denies any current needs. Social work continues to work on placement. Discussed at morning rounds that Telestroke was not able to evaluate the patient for Parkinson's due to limitations with virtual visit. Hospitalist has suggested to social work that she help find an outpatient neurology appointment for the patient and we would then transport him to and from this appointment.
[2022-12-15] MEDS: CLOPIDOGREL 75 MG TABLET PO SCH (08:22)
[2022-12-15] MEDS: SENNA 8.6 MG TABLET PO SCH (08:22)
[2022-12-15] MEDS: ATORVASTATIN 40 MG TABLET PO SCH (08:22)
[2022-12-15] MEDS: amLODIPine 5 MG TABLET PO SCH (08:22)
[2022-12-15] MEDS: lisinopriL 5 MG TABLET PO SCH (08:23)
[2022-12-15] MEDS: DOCUSATE SODIUM 250 MG CAPSULE PO SCH (08:23)
[2022-12-16] MEDS: PANTOPRAZOLE 40 MG TABLET PO SCH (07:17)
[2022-12-16] MEDS: CLOPIDOGREL 75 MG TABLET PO SCH (08:00)
[2022-12-16] MEDS: lisinopriL 5 MG TABLET PO SCH (08:00)
[2022-12-16] MEDS: DOCUSATE SODIUM 250 MG CAPSULE PO SCH (08:00)
[2022-12-16] MEDS: SENNA 8.6 MG TABLET PO SCH (08:00)
[2022-12-16] MEDS: polyethylene glycoL 3350 17 GM PACKET PO SCH (08:01)
[2022-12-16] MEDS: amLODIPine 5 MG TABLET PO SCH (08:01)
[2022-12-16] MEDS: ATORVASTATIN 40 MG TABLET PO SCH (08:01)
--- NOTE | 2022-12-16 11:43 | ED Physician Documentation ---
ED Addendum - Addendum Addendum: Patient remains boarding awaiting long-term placement. No significant changes from yesterday. Social work is continuing to work to see if she can get him an outpatient neurology appointment.
[2022-12-17] MEDS: PANTOPRAZOLE 40 MG TABLET PO SCH (07:38)
[2022-12-17] MEDS: polyethylene glycoL 3350 17 GM PACKET PO SCH (08:13)
[2022-12-17] MEDS: lisinopriL 5 MG TABLET PO SCH (08:14)
[2022-12-17] MEDS: DOCUSATE SODIUM 250 MG CAPSULE PO SCH (08:14)
[2022-12-17] MEDS: CLOPIDOGREL 75 MG TABLET PO SCH (08:14)
[2022-12-17] MEDS: amLODIPine 5 MG TABLET PO SCH (08:14)
[2022-12-17] MEDS: ATORVASTATIN 40 MG TABLET PO SCH (08:14)
[2022-12-17] MEDS: SENNA 8.6 MG TABLET PO SCH (08:14)
[2022-12-17] MEDS: COD LIVER OIL/ZINC OXIDE 113 GM TUBE TOP PRN (09:28)
--- NOTE | 2022-12-17 16:15 | ED Physician Documentation ---
ED Addendum - Addendum Addendum: 12/17/22 16:13 The patient did not have any noted problems nursing notes from overnight. Utilization review and social work today asked if I could put in for a neurology consultation with the [facility]. This was requested by the provider for the patient through the [facility] according to UR notes, presume in evaluation of the dementia. I placed a consultation in the [facility] program. I am not completely sure how that subsequently transfers to the [facility]. I will pass it on to utilization review to follow-up on this. Otherwise continue current treatments.
[2022-12-18] MEDS: PANTOPRAZOLE 40 MG TABLET PO SCH (07:21)
[2022-12-18] MEDS: ATORVASTATIN 40 MG TABLET PO SCH (08:39)
[2022-12-18] MEDS: amLODIPine 5 MG TABLET PO SCH (08:39)
[2022-12-18] MEDS: CLOPIDOGREL 75 MG TABLET PO SCH (08:39)
[2022-12-18] MEDS: DOCUSATE SODIUM 250 MG CAPSULE PO SCH (08:39)
[2022-12-18] MEDS: lisinopriL 5 MG TABLET PO SCH (08:39)
[2022-12-18] MEDS: SENNA 8.6 MG TABLET PO SCH (08:40)
[2022-12-18] MEDS: polyethylene glycoL 3350 17 GM PACKET PO SCH (08:40)
--- NOTE | 2022-12-18 09:59 | ED Physician Documentation ---
ED Addendum - Addendum Addendum: Patient remains boarding awaiting long-term placement. No acute events overnight. Social work continues to work on getting patient an outpatient neurology appointment for evaluation of Parkinson's-like symptoms.
[2022-12-19] MEDS: PANTOPRAZOLE 40 MG TABLET PO SCH (06:46)
[2022-12-19] MEDS: DOCUSATE SODIUM 250 MG CAPSULE PO SCH (08:56)
[2022-12-19] MEDS: amLODIPine 5 MG TABLET PO SCH (08:56)
[2022-12-19] MEDS: lisinopriL 5 MG TABLET PO SCH (08:56)
[2022-12-19] MEDS: ATORVASTATIN 40 MG TABLET PO SCH (08:56)
[2022-12-19] MEDS: CLOPIDOGREL 75 MG TABLET PO SCH (08:56)
[2022-12-19] MEDS: SENNA 8.6 MG TABLET PO SCH (08:57)
[2022-12-19] MEDS: polyethylene glycoL 3350 17 GM PACKET PO SCH (08:57)
--- NOTE | 2022-12-19 18:34 | ED Physician Documentation ---
ED Addendum - Addendum Addendum: 12/19/22 18:33 The patient was signed out to me at change of shift, continuing to pend final disposition and placement in a long-term care facility. He continues to board on the medical floor under ED care. The patient had no reported issues throughout the day. Patient signed out to the oncoming emergency physician, continuing to pend final disposition.
[2022-12-20] MEDS: PANTOPRAZOLE 40 MG TABLET PO SCH (06:54)
[2022-12-20] MEDS: polyethylene glycoL 3350 17 GM PACKET PO SCH (08:35)
[2022-12-20] MEDS: CLOPIDOGREL 75 MG TABLET PO SCH (08:35)
[2022-12-20] MEDS: ATORVASTATIN 40 MG TABLET PO SCH (08:35)
[2022-12-20] MEDS: amLODIPine 5 MG TABLET PO SCH (08:35)
[2022-12-20] MEDS: DOCUSATE SODIUM 250 MG CAPSULE PO SCH (08:35)
[2022-12-20] MEDS: SENNA 8.6 MG TABLET PO SCH (08:35)
[2022-12-20] MEDS: lisinopriL 5 MG TABLET PO SCH (08:35)
--- NOTE | 2022-12-20 18:55 | ED Physician Documentation ---
ED Addendum - Addendum Addendum: 12/20/22 18:52 Got a note from nursing staff this morning that they had been noticing him having upper airway wheezing intermittently over the last couple of days. O2 sats are 100%. Vital signs are good. No notable edema or recent cough or congestion. No fever. He denies having any shortness of breath or chest pain. No history of COPD or emphysema by his records. He had not been on any inhalers or such. We can do a chest x-ray to evaluate lung cline. I did examine the patient and he had normal phonation and breathing. There was no wheezing noted on my exam. Possible faint crackles at the bases. He did not have any calf tenderness. There was a minimal pretibial edema. At this point I would suggest chest x-ray and will order that. We can check basic labs to include a chemistry panel, kidney function electrolytes as well as a BNP. For treatment he may be just having congestion with upper airway audible wheezing as noted by the nursing. For that we could try as an albuterol inhaler 2-3 times daily as well as incentive spirometry. I will place these orders at this time. I had not gotten over to examine him until just this afternoon. I will place the orders and reassess of results later and tomorrow.
[2022-12-20 19:30] LABS: CALCIUM 9.3 mg/dL (8.5-10.3); CREATININE 1.3 mg/dL (0.6-1.3); MAGNESIUM 1.9 mg/dL (1.7-2.3); POTASSIUM 4.2 mmol/L (3.5-4.5)
--- NOTE | 2022-12-20 19:58 | XRAY Report ---
PROCEDURE: Chest 1 View X-Ray INDICATIONS: chest pain TECHNIQUE: One view of the chest was acquired. COMPARISON: Chest x-ray, 12/05/2022. FINDINGS: Surgical changes and devices: None. Lungs and pleura: No pleural effusions or pneumothorax. Lungs are clear. Mediastinum: Mediastinal contours appear normal. Heart size is normal. Bones and chest wall: No suspicious bony lesions. Overlying soft tissues appear unremarkable. IMPRESSION: No acute cardiopulmonary process. Reviewed by: Blaze Jalloh MD on 12/20/2022 7:56 PM PDT Approved by: Blaze Jalloh MD on 12/20/2022 7:56 PM PDT Station ID: [id number]
[2022-12-20] MEDS: ALBUTEROL 1 PUFF INH SCH (21:37)
[2022-12-21] MEDS: ALBUTEROL 1 PUFF INH SCH ×3 (06:06→13:17)
[2022-12-21] MEDS: PANTOPRAZOLE 40 MG TABLET PO SCH (07:00)
[2022-12-21] MEDS: CLOPIDOGREL 75 MG TABLET PO SCH (09:09)
[2022-12-21] MEDS: ATORVASTATIN 40 MG TABLET PO SCH (09:09)
[2022-12-21] MEDS: lisinopriL 5 MG TABLET PO SCH (09:09)
[2022-12-21] MEDS: polyethylene glycoL 3350 17 GM PACKET PO SCH (09:10)
[2022-12-21] MEDS: amLODIPine 5 MG TABLET PO SCH (09:10)
[2022-12-21] MEDS: SENNA 8.6 MG TABLET PO SCH (09:10)
[2022-12-21] MEDS: DOCUSATE SODIUM 250 MG CAPSULE PO SCH (09:10)
--- NOTE | 2022-12-21 16:22 | ED Physician Documentation ---
ED Addendum - Addendum Addendum: 12/21/22 16:21 From yesterday's orders, the chest x-ray did not show any acute abnormalities. Is chemistry panel showed baseline creatinine and GFR. Electrolytes were okay. BNP is minimal. No signs of heart failure pneumonia or atelectasis. No signs of renal insufficiency. More than baseline anyway. We can continue with the inhaler and incentive spirometry and see if that helps his breathing status.
[2022-12-22] MEDS: ALBUTEROL 1 PUFF INH SCH ×3 (04:38→14:17)
[2022-12-22] MEDS: PANTOPRAZOLE 40 MG TABLET PO SCH (07:03)
[2022-12-22] MEDS: ATORVASTATIN 40 MG TABLET PO SCH (09:01)
[2022-12-22] MEDS: polyethylene glycoL 3350 17 GM PACKET PO SCH (09:01)
[2022-12-22] MEDS: DOCUSATE SODIUM 250 MG CAPSULE PO SCH (09:01)
[2022-12-22] MEDS: SENNA 8.6 MG TABLET PO SCH (09:01)
[2022-12-22] MEDS: CLOPIDOGREL 75 MG TABLET PO SCH (09:01)
[2022-12-22] MEDS: amLODIPine 5 MG TABLET PO SCH (09:01)
[2022-12-22] MEDS: lisinopriL 5 MG TABLET PO SCH (09:01)
--- NOTE | 2022-12-22 16:00 | ED Physician Documentation ---
ED Addendum - Addendum Addendum: 12/22/22 16:00 He was sleeping on rounds today and I did not arouse him. His blood pressures been running fairly high, plan to increase his lisinopril from 10 up to 20 mg a day. Otherwise no apparent acute events looking at recent social work and nursing notes.
[2022-12-23] MEDS: PANTOPRAZOLE 40 MG TABLET PO SCH (06:44)
[2022-12-23] MEDS: DOCUSATE SODIUM 250 MG CAPSULE PO SCH (08:11)
[2022-12-23] MEDS: CLOPIDOGREL 75 MG TABLET PO SCH (08:11)
[2022-12-23] MEDS: ATORVASTATIN 40 MG TABLET PO SCH (08:11)
[2022-12-23] MEDS: SENNA 8.6 MG TABLET PO SCH (08:11)
[2022-12-23] MEDS: lisinopriL 20 MG TABLET PO SCH (08:11)
[2022-12-23] MEDS: polyethylene glycoL 3350 17 GM PACKET PO SCH (08:12)
[2022-12-23] MEDS: amLODIPine 5 MG TABLET PO SCH (08:12)
--- NOTE | 2022-12-23 12:28 | ED Physician Documentation ---
ED Addendum - Addendum Addendum: 12/23/22 12:28 Seen and examined at the bedside he is sitting up watching TV, and old Western. He has no complaints. I had increased his lisinopril yesterday but really too early to see any change especially noting really only doing daily vital signs which is appropriate given his status. Recent social work and nursing notes reviewed.
[2022-12-24] MEDS: PANTOPRAZOLE 40 MG TABLET PO SCH (07:02)
[2022-12-24] MEDS: ALBUTEROL 1 PUFF INH PRN (07:48)
[2022-12-24] MEDS: DOCUSATE SODIUM 250 MG CAPSULE PO SCH (08:56)
[2022-12-24] MEDS: lisinopriL 20 MG TABLET PO SCH (08:56)
[2022-12-24] MEDS: SENNA 8.6 MG TABLET PO SCH (08:57)
[2022-12-24] MEDS: polyethylene glycoL 3350 17 GM PACKET PO SCH (08:57)
[2022-12-24] MEDS: CLOPIDOGREL 75 MG TABLET PO SCH (08:57)
[2022-12-24] MEDS: amLODIPine 5 MG TABLET PO SCH (08:57)
[2022-12-24] MEDS: ATORVASTATIN 40 MG TABLET PO SCH (08:57)
--- NOTE | 2022-12-24 14:15 | ED Physician Documentation ---
ED Addendum - Addendum Addendum: 12/24/22 14:15 Blood pressure better today after the increase in lisinopril a couple of days ago. Social work notes from today reviewed and looks like there is some progress being made. Also reviewed PT notes and X looks like he is really not cooperating with PT.
[2022-12-25] MEDS: PANTOPRAZOLE 40 MG TABLET PO SCH (06:11)
[2022-12-25] MEDS: CLOPIDOGREL 75 MG TABLET PO SCH (09:07)
[2022-12-25] MEDS: amLODIPine 5 MG TABLET PO SCH (09:07)
[2022-12-25] MEDS: lisinopriL 20 MG TABLET PO SCH (09:07)
[2022-12-25] MEDS: ATORVASTATIN 40 MG TABLET PO SCH (09:07)
[2022-12-25] MEDS: DOCUSATE SODIUM 250 MG CAPSULE PO SCH (09:07)
[2022-12-25] MEDS: SENNA 8.6 MG TABLET PO SCH (09:08)
[2022-12-25] MEDS: polyethylene glycoL 3350 17 GM PACKET PO SCH (09:08)
--- NOTE | 2022-12-25 17:18 | ED Physician Documentation ---
ED Addendum - Addendum Addendum: 12/25/22 17:15 Which reports no specific changes to his condition. He does indicate that some ladies came into the room yesterday and talked to him about something. He did not really believe that they were working on a place for him to stay. He has heard this before. I quizzed him on the actor playing the rifle man and he quickly answered Tommy Lerma. I believe his long-term memory is intact.
[2022-12-26] MEDS: PANTOPRAZOLE 40 MG TABLET PO SCH (06:09)
[2022-12-26] MEDS: DOCUSATE SODIUM 250 MG CAPSULE PO SCH (07:50)
[2022-12-26] MEDS: CLOPIDOGREL 75 MG TABLET PO SCH (07:51)
[2022-12-26] MEDS: ATORVASTATIN 40 MG TABLET PO SCH (07:51)
[2022-12-26] MEDS: lisinopriL 20 MG TABLET PO SCH (07:51)
[2022-12-26] MEDS: polyethylene glycoL 3350 17 GM PACKET PO SCH (07:51)
[2022-12-26] MEDS: SENNA 8.6 MG TABLET PO SCH (07:51)
[2022-12-26] MEDS: amLODIPine 5 MG TABLET PO SCH (07:51)
[2022-12-26] MEDS: ACETAMINOPHEN 500 MG TABLET PO PRN (16:31)
--- NOTE | 2022-12-26 19:23 | ED Physician Documentation ---
ED Addendum - Addendum Addendum: 12/26/22 19:22 Today when I went in to Gary's room, the TV is on and he is sound asleep, looking very comfortable. I did not wake him up to give him his daily TV quizz. There are no changes to his condition noted
[2022-12-27] MEDS: PANTOPRAZOLE 40 MG TABLET PO SCH (06:25)
[2022-12-27] MEDS: amLODIPine 5 MG TABLET PO SCH (09:25)
[2022-12-27] MEDS: CLOPIDOGREL 75 MG TABLET PO SCH (09:25)
[2022-12-27] MEDS: polyethylene glycoL 3350 17 GM PACKET PO SCH (09:25)
[2022-12-27] MEDS: ATORVASTATIN 40 MG TABLET PO SCH (09:25)
[2022-12-27] MEDS: SENNA 8.6 MG TABLET PO SCH (09:25)
[2022-12-27] MEDS: lisinopriL 20 MG TABLET PO SCH (09:25)
[2022-12-27] MEDS: DOCUSATE SODIUM 250 MG CAPSULE PO SCH (09:25)
--- NOTE | 2022-12-27 22:00 | ED Physician Documentation ---
ED Addendum - Addendum Addendum: 12/27/22 22:00 Patient received some paperwork today - refer to Social Work notes. No apparent problems related to meds/diet/care. He seemed in good mood when I visited briefly about 6:30 PM.
[2022-12-28] MEDS: PANTOPRAZOLE 40 MG TABLET PO SCH (06:41)
[2022-12-28] MEDS: ALBUTEROL 1 PUFF INH PRN (07:14)
[2022-12-28] MEDS: DOCUSATE SODIUM 250 MG CAPSULE PO SCH (09:21)
[2022-12-28] MEDS: amLODIPine 5 MG TABLET PO SCH (09:22)
[2022-12-28] MEDS: lisinopriL 20 MG TABLET PO SCH (09:22)
[2022-12-28] MEDS: polyethylene glycoL 3350 17 GM PACKET PO SCH (09:22)
[2022-12-28] MEDS: ATORVASTATIN 40 MG TABLET PO SCH (09:22)
[2022-12-28] MEDS: SENNA 8.6 MG TABLET PO SCH (09:22)
[2022-12-28] MEDS: CLOPIDOGREL 75 MG TABLET PO SCH (09:22)
--- NOTE | 2022-12-28 14:24 | ED Physician Documentation ---
ED Addendum - Addendum Addendum: 12/28/22 14:23 Received a note from nursing to place misc order for nursing staff to assist pt with showering on Weds and Sats. Can do that. Otherwise no noted problems reported.
[2022-12-29] MEDS: PANTOPRAZOLE 40 MG TABLET PO SCH (07:11)
[2022-12-29] MEDS: SENNA 8.6 MG TABLET PO SCH (08:01)
[2022-12-29] MEDS: lisinopriL 20 MG TABLET PO SCH (08:01)
[2022-12-29] MEDS: amLODIPine 5 MG TABLET PO SCH (08:01)
[2022-12-29] MEDS: polyethylene glycoL 3350 17 GM PACKET PO SCH (08:02)
[2022-12-29] MEDS: ATORVASTATIN 40 MG TABLET PO SCH (08:02)
[2022-12-29] MEDS: DOCUSATE SODIUM 250 MG CAPSULE PO SCH (08:02)
[2022-12-29] MEDS: CLOPIDOGREL 75 MG TABLET PO SCH (08:02)
--- NOTE | 2022-12-29 15:15 | ED Physician Documentation ---
ED Addendum - Addendum Addendum: 12/29/22 15:15 The patient was signed out to me at change of shift, continuing to pend long- term care facility placement and continuing to board on the floor under ED care. Nurses reported no issues throughout the day. The patient took his medications and ate his food. He will continue to be worked with by social work for ultimate goal of facility placement. He is signed out to the oncoming emergency physician pending this.
[2022-12-30] MEDS: PANTOPRAZOLE 40 MG TABLET PO SCH (06:45)
[2022-12-30] MEDS: lisinopriL 20 MG TABLET PO SCH (08:43)
[2022-12-30] MEDS: CLOPIDOGREL 75 MG TABLET PO SCH (08:43)
[2022-12-30] MEDS: DOCUSATE SODIUM 250 MG CAPSULE PO SCH (08:43)
[2022-12-30] MEDS: amLODIPine 5 MG TABLET PO SCH (08:43)
[2022-12-30] MEDS: polyethylene glycoL 3350 17 GM PACKET PO SCH (08:44)
[2022-12-30] MEDS: ATORVASTATIN 40 MG TABLET PO SCH (08:44)
[2022-12-30] MEDS: SENNA 8.6 MG TABLET PO SCH (14:02)
--- NOTE | 2022-12-30 15:27 | ED Physician Documentation ---
ED Addendum - Addendum Addendum: 12/30/22 15:26 NAEO VS stable RN and SW notes reviewed.
[2022-12-31] MEDS: SENNA 8.6 MG TABLET PO SCH (08:16)
[2022-12-31] MEDS: ATORVASTATIN 40 MG TABLET PO SCH (08:16)
[2022-12-31] MEDS: DOCUSATE SODIUM 250 MG CAPSULE PO SCH (08:16)
[2022-12-31] MEDS: CLOPIDOGREL 75 MG TABLET PO SCH (08:16)
[2022-12-31] MEDS: PANTOPRAZOLE 40 MG TABLET PO SCH (08:16)
[2022-12-31] MEDS: polyethylene glycoL 3350 17 GM PACKET PO SCH (08:17)
[2022-12-31] MEDS: lisinopriL 20 MG TABLET PO SCH (08:17)
[2022-12-31] MEDS: amLODIPine 5 MG TABLET PO SCH (08:17)
--- NOTE | 2022-12-31 09:56 | ED Physician Documentation ---
ED Addendum - Addendum Addendum: No acute events overnight. Appears that patient was able to get outside yesterday with the nice weather. Social work continues to work on obtaining guardianship and working on placement. They are also working on getting patient an outpatient neurology appointment for concerns regarding Parkinson's symptoms.
[2023-01-01] MEDS: PANTOPRAZOLE 40 MG TABLET PO SCH (06:25)
[2023-01-01] MEDS: DOCUSATE SODIUM 250 MG CAPSULE PO SCH (10:33)
[2023-01-01] MEDS: ATORVASTATIN 40 MG TABLET PO SCH (10:33)
[2023-01-01] MEDS: lisinopriL 20 MG TABLET PO SCH (10:33)
[2023-01-01] MEDS: CLOPIDOGREL 75 MG TABLET PO SCH (10:33)
[2023-01-01] MEDS: amLODIPine 5 MG TABLET PO SCH (10:33)
[2023-01-01] MEDS: SENNA 8.6 MG TABLET PO SCH (10:34)
[2023-01-01] MEDS: polyethylene glycoL 3350 17 GM PACKET PO SCH (10:34)
--- NOTE | 2023-01-01 13:23 | ED Physician Documentation ---
ED Addendum - Addendum Addendum: Patient remains boarding awaiting long-term placement. Social work continues to work on obtaining guardianship and safe disposition. No acute events overnight.
[2023-01-02] MEDS: PANTOPRAZOLE 40 MG TABLET PO SCH (07:13)
[2023-01-02] MEDS: ATORVASTATIN 40 MG TABLET PO SCH (09:29)
[2023-01-02] MEDS: DOCUSATE SODIUM 250 MG CAPSULE PO SCH (09:29)
[2023-01-02] MEDS: lisinopriL 20 MG TABLET PO SCH (09:29)
[2023-01-02] MEDS: SENNA 8.6 MG TABLET PO SCH (09:29)
[2023-01-02] MEDS: polyethylene glycoL 3350 17 GM PACKET PO SCH (09:29)
[2023-01-02] MEDS: CLOPIDOGREL 75 MG TABLET PO SCH (09:29)
[2023-01-02] MEDS: amLODIPine 5 MG TABLET PO SCH (09:29)
--- NOTE | 2023-01-02 10:42 | ED Physician Documentation ---
ED Addendum - Addendum Addendum: 01/02/23 10:41 Patient seen and examined at the bedside. He had no specific complaints and I checked in with the nurse who voiced no needs. Recent vital signs and nursing notes reviewed.
[2023-01-03] MEDS: PANTOPRAZOLE 40 MG TABLET PO SCH (06:52)
[2023-01-03] MEDS: SENNA 8.6 MG TABLET PO SCH (09:27)
[2023-01-03] MEDS: amLODIPine 5 MG TABLET PO SCH (09:27)
[2023-01-03] MEDS: lisinopriL 20 MG TABLET PO SCH (09:27)
[2023-01-03] MEDS: ATORVASTATIN 40 MG TABLET PO SCH (09:27)
[2023-01-03] MEDS: polyethylene glycoL 3350 17 GM PACKET PO SCH (09:27)
[2023-01-03] MEDS: DOCUSATE SODIUM 250 MG CAPSULE PO SCH (09:27)
[2023-01-03] MEDS: CLOPIDOGREL 75 MG TABLET PO SCH (09:27)
--- NOTE | 2023-01-03 21:25 | ED Physician Documentation ---
ED Addendum - Addendum Addendum: 01/03/23 21:24 No apparent tangible developments. SW notes about court visitor appointments. No issues from nursing notes.
[2023-01-04] MEDS: PANTOPRAZOLE 40 MG TABLET PO SCH (06:42)
[2023-01-04] MEDS: SENNA 8.6 MG TABLET PO SCH (09:34)
[2023-01-04] MEDS: DOCUSATE SODIUM 250 MG CAPSULE PO SCH (09:34)
[2023-01-04] MEDS: lisinopriL 20 MG TABLET PO SCH (09:34)
[2023-01-04] MEDS: amLODIPine 5 MG TABLET PO SCH (09:34)
[2023-01-04] MEDS: ATORVASTATIN 40 MG TABLET PO SCH (09:34)
[2023-01-04] MEDS: CLOPIDOGREL 75 MG TABLET PO SCH (09:34)
[2023-01-04] MEDS: polyethylene glycoL 3350 17 GM PACKET PO SCH (09:34)
--- NOTE | 2023-01-04 23:37 | ED Physician Documentation ---
ED Addendum - Addendum Addendum: 01/04/23 23:36 From morning report, no new developments for patient. He seems okay and will continue current treatments/diet/etc.
[2023-01-05] MEDS: PANTOPRAZOLE 40 MG TABLET PO SCH (06:49)
[2023-01-05] MEDS: ATORVASTATIN 40 MG TABLET PO SCH (07:40)
[2023-01-05] MEDS: amLODIPine 5 MG TABLET PO SCH (07:40)
[2023-01-05] MEDS: DOCUSATE SODIUM 250 MG CAPSULE PO SCH (07:40)
[2023-01-05] MEDS: lisinopriL 20 MG TABLET PO SCH (07:40)
[2023-01-05] MEDS: CLOPIDOGREL 75 MG TABLET PO SCH (07:40)
[2023-01-05] MEDS: SENNA 8.6 MG TABLET PO SCH (07:40)
[2023-01-05] MEDS: polyethylene glycoL 3350 17 GM PACKET PO SCH (07:41)
--- NOTE | 2023-01-05 08:14 | ED Physician Documentation ---
ED Addendum - Addendum Addendum: Patient remains boarding under emergency department status awaiting long-term placement. Reviewed physical therapy notes from yesterday. Appears to have had slight improvement yesterday but they do note that he has fluctuations from day-to-day on his abilities. No acute events overnight. Outpatient neurology appointment has been scheduled for March. Per social work, patient has been assigned a new court visitor who should hopefully meet with him in the next week. 01/05/23 11:05 Notified at morning meeting that patient has been accepted to the extended-stay program. Discussed with Dr. Valle who will place orders. Departure - Departure Disposition: 30 Still a Pt Return for OP Sv Clinical Impression: Dementia Condition: Stable Instructions: ED Dementia Caregiver Support
[2023-01-06] MEDS: PANTOPRAZOLE 40 MG TABLET PO SCH (07:00)
[2023-01-06] MEDS: CLOPIDOGREL 75 MG TABLET PO SCH (07:55)
[2023-01-06] MEDS: DOCUSATE SODIUM 250 MG CAPSULE PO SCH (07:55)
[2023-01-06] MEDS: SENNA 8.6 MG TABLET PO SCH (07:55)
[2023-01-06] MEDS: amLODIPine 5 MG TABLET PO SCH (07:55)
[2023-01-06] MEDS: lisinopriL 20 MG TABLET PO SCH (07:55)
[2023-01-06] MEDS: polyethylene glycoL 3350 17 GM PACKET PO SCH (07:56)
[2023-01-06] MEDS: ATORVASTATIN 40 MG TABLET PO SCH (07:56)
[2023-01-06 09:20] VITALS: O2SAT 97
--- NOTE | 2023-01-06 22:13 | ED Physician Documentation ---
ED Addendum - Addendum Addendum: 01/06/23 22:13 No noted change in status. He continues with regular meds, diet, and mostly watching TV.
[2023-01-07] MEDS: PANTOPRAZOLE 40 MG TABLET PO SCH (07:16)
[2023-01-07] MEDS: DOCUSATE SODIUM 250 MG CAPSULE PO SCH (07:48)
[2023-01-07] MEDS: lisinopriL 20 MG TABLET PO SCH (07:48)
[2023-01-07] MEDS: ATORVASTATIN 40 MG TABLET PO SCH (07:48)
[2023-01-07] MEDS: CLOPIDOGREL 75 MG TABLET PO SCH (07:48)
[2023-01-07] MEDS: SENNA 8.6 MG TABLET PO SCH (07:48)
[2023-01-07] MEDS: amLODIPine 5 MG TABLET PO SCH (07:48)
[2023-01-07] MEDS: polyethylene glycoL 3350 17 GM PACKET PO SCH (07:49)
[2023-01-07 09:46] VITALS: BP 147/70
== END 2023-01-06 13:53 | disposition still patient (30) ==
LOC: EDUNIT# → ED 11:50 → EEVIPCON 11:50 → MS2 05-06 20:33 → ED 01-06 13:53
DX: R53.1 Weakness (principal); F03.90 Unspecified dementia, unspecified severity, without behavioral disturbance, psychotic disturbance, mood disturbance, and anxiety; F32.A Depression, unspecified; M79.662 Pain in left lower leg; R60.9 Edema, unspecified; I10 Essential (primary) hypertension; K59.00 Constipation, unspecified; R21 Rash and other nonspecific skin eruption; E78.5 Hyperlipidemia, unspecified; K08.89 Other specified disorders of teeth and supporting structures; Z86.73 Personal history of transient ischemic attack (TIA), and cerebral infarction without residual deficits; Z91.81 History of falling; Z79.01 Long term (current) use of anticoagulants; Z87.891 Personal history of nicotine dependence; Z74.2 Need for assistance at home and no other household member able to render care; W19.XXXA Unspecified fall, initial encounter; Y92.009 Unspecified place in unspecified non-institutional (private) residence as the place of occurrence of the external cause; L53.9 Erythematous condition, unspecified; R06.2 Wheezing
CPT/HCPCS: 36415; 70450; 71045; 72125; 80048; 80053; 81003; 83690; 83735; 83880; 84443; 85025; 94640; 97110; 97112; 97116; 97164; 97167; 97530; 97535; 99283; 99284; A9270; 41899; 51798; 81001; 85610; 87086; 93005; 96360; 96361

== ENCOUNTER 2023-05-24 17:25 | Outpatient (CLI) | payer OTHER | END 2023-05-24 17:26 | disposition critical access hospital (66) | LOC: EMS 17:25 | DX: R63.8 Other symptoms and signs concerning food and fluid intake (principal); R63.0 Anorexia; G20.C Parkinsonism, unspecified | CPT/HCPCS: A0425; A0429 ==

== ENCOUNTER 2023-05-24 17:32 | Emergency (ER) | payer OTHER ==
--- NOTE | 2023-05-24 17:42 | ED Physician Documentation ---
History of Present Illness - Stated complaint Stated Complaint: DEHYDRATION - History obtained from History obtained from: Patient, EMS - History of Present Illness Pain level max: 0 Pain level now: 0 - Additonal information Additional information: 78-year-old male with a history of dementia lives at [facility]. Staff states he has had decreased appetite over the past few days and are concerned about dehydration. EMS states that the physician at [facility] was concerned about potential UTI. Patient has no complaints. No nausea, vomiting, diarrhea. No abdominal pain. No chest pain. No fevers. No cough. No congestion. He states that he feels fine, he just does not like the food. Review of Systems Constitutional: denies: Fever, Chills GI: denies: Vomiting, Diarrhea Skin: denies: Rash Musculoskeletal: denies: Neck pain, Back pain Neurologic: denies: Headache PD PAST MEDICAL HISTORY - Past Medical History Cardiovascular: Hypertension, High cholesterol Respiratory: None Neuro: Dementia, CVA, Other Endocrine/Autoimmune: None GI: None : Other (Unknown) Psych: Depression Musculoskeletal: Fatigue - Past Surgical History Past Surgical History: Yes - Present Medications Home Medications: Ambulatory Orders Medication Instructions Recorded Confirmed Acetaminophen [Tylenol] 650 mg PO Q4HR PRN #30 tab 04/05/23 Albuterol 2.5 mg INH RTQ4H PRN 30 Days ml 04/05/23 Atorvastatin [Lipitor] 40 mg PO HS #30 tab 04/05/23 Calcium Carbonate [Tums (Calcium 500 mg PO 0900,1700 #30 tab 04/05/23 Carbonate 500mg)] Carbidopa/Levodopa 25/100 [Sinemet 1 tab PO 0700,1100,1500,1900 #30 04/05/23 25 mg/100 mg] tab Carbidopa/Levodopa ER 50/200 1 tab PO QPM #30 tab 04/05/23 [Sinemet Cr 50 mg/200 mg] Clopidogrel [Plavix] 75 mg PO DAILY #30 tab 04/05/23 Cod Liver Oil/Zinc Oxide [Desitin] 1 gm TOP BID #30 each 04/05/23 Pantoprazole [Protonix] 40 mg PO QDAC #30 tab 04/05/23 hydroCHLOROthiazide [Hydrodiuril] 25 mg PO MOWEFR #30 tab 04/05/23 lisinopriL [Zestril] 20 mg PO DAILY #30 tab 04/05/23 Bisacodyl Supp [Dulcolax Supp] 10 mg UT DAILY PRN 05/24/23 05/24/23 Mineral Oil [Mineral Oil Enema] 1 ea RC ONCE PRN 05/24/23 05/24/23 Senna [Senokot] 17.2 mg PO DAILY PRN 05/24/23 05/24/23 polyethylene glycoL 3350 [Miralax] 17 gm PO DAILY PRN 05/24/23 05/24/23 - Allergies Allergies/Adverse Reactions: Allergies Allergy/AdvReac Type Severity Reaction Status Date / Time No Known Drug Allergies Allergy Verified 05/24/23 18:29 - Social History Does the pt smoke?: No Smoking Status: Former smoker Does the pt have substance abuse?: No PD ED PE NORMAL - Vitals Vital signs reviewed: Yes - General General: Alert and oriented X 3, No acute distress - HEENT HEENT: PERRL, Other (dry lips) - Neck Neck: Supple, no meningeal sign - Cardiac Cardiac: RRR, Strong equal pulses - Respiratory Respiratory: No respiratory distress, Clear bilaterally - Abdomen Abdomen: Soft, Non tender, Non distended - Derm Derm: Warm and dry - Neuro Neuro: Other (alert, happy, pleasant) - Psych Psych: Normal mood, Normal affect Results - Vitals Vitals: Vital Signs - 24 hr 05/24/23 05/24/23 05/24/23 17:35 18:43 20:00 Temperature 36.9 C 36.3 C L Heart Rate 70 63 64 Respiratory 16 16 19 Rate Blood Pressure 141/111 H 111/65 123/60 O2 Saturation 98 99 98 Oxygen O2 Source Room air - Labs Labs: Laboratory Tests 05/24/23 05/24/23 05/24/23 17:52 17:52 18:20 WBC 6.3 RBC 4.47 L Hgb 13.2 L Hct 42.6 MCV 95.3 H MCH 29.5 MCHC 31.0 L RDW 13.7 Plt Count 153 MPV 12.0 H Neut # (Auto) 4.8 Lymph # (Auto) 0.9 L [place] # (Auto) 0.6 Eos # (Auto) 0.1 Baso # (Auto) 0.0 Absolute Nucleated RBC 0.00 Nucleated RBC % 0.0 Sodium 134 L Potassium 4.7 H Chloride 97 L Carbon Dioxide 28 Anion Gap 9.0 BUN 70 H Creatinine 2.1 H Estimated GFR (MDRD) 31 L Glucose 108 H Calcium 9.2 Total Bilirubin 1.2 H AST 6 L ALT < 3 L Alkaline Phosphatase 56 Total Protein 6.9 Albumin 3.8 Globulin 3.1 Albumin/Globulin Ratio 1.2 Lipase 20 Urine Color DARK YELLOW Urine Clarity CLEAR Urine pH 5.5 Ur Specific [place] 1.025 Urine Protein NEGATIVE Urine Glucose (UA) NEGATIVE Urine Ketones TRACE Urine Occult Blood TRACE-INTA Urine Nitrite NEGATIVE Urine Bilirubin SMALL H Urine Urobilinogen 0.2 (NORMAL) Ur Leukocyte Esterase NEGATIVE Ur Microscopic Review NOT INDICATED Urine Culture Comments NOT INDICATED PD Medical Decision Making - ED course Complexity details: reviewed results, re-evaluated patient, considered differential, d/w patient ED course: Patient is well-appearing, nontoxic. Afebrile. Does appear dehydrated. Given 2 L of IV fluid. He is tolerating p.o. without difficulty here. He does have a mild elevation of his creatinine above normal. Elevated BUN as well consistent with dehydration. Will have this rechecked with his doctor. No evidence of sepsis, UTI. Abdomen is soft, nontender nondistended. Encourage the patient to increase his eating at the correction. Patient counseled regarding signs and symptoms for which I believe and urgent re-evaluation would be necessary. Patient with good understanding of and agreement to plan and is comfortable going home at this time This document was made in part using voice recognition software. While efforts are made to proofread this document, sound alike and grammatical errors may occur. Departure - Departure Disposition: 01 Home, Self Care Clinical Impression: Dehydration Condition: Good Instructions: ED Dehydration Follow-Up: your,doctor in 1 week [Other] Comments: You were given 2 L of IV fluid today. You are dehydrated. Make sure you are eating and drinking at home. Your urinalysis does not show any signs of infection. Please follow-up with your doctor for further care. You should have your kidney function rechecked in 3 to 4 days with your doctor. Forms: PCP List Discharge Date/Time: 05/24/23 20:34
[2023-05-24] MEDS: SODIUM CHLORIDE 0.9% 1,000 ML IV STA ×2 (17:58→19:12)
[2023-05-24 18:11] LABS: BASOPHILS % (AUTO) 0.2 %; EOSINOPHILS # (AUTO) 0.1 10^3/uL (0.0-0.7); EOSINOPHILS % (AUTO) 1.3 %; HCT - HEMATOCRIT 42.6 % (42.0-52.0); HGB - HEMOGLOBIN 13.2 g/dL (14.0-18.0); LYMPHOCYTES # (AUTO) 0.9 10^3/uL (1.5-3.5); LYMPHOCYTES % (AUTO) 13.6 %; MEAN CORPUSCULAR HEMOGLOBIN 29.5 pg (27.0-31.0); MEAN CORPUSCULAR VOLUME 95.3 fL (80.0-94.0); MONOCYTES # (AUTO) 0.6 10^3/uL (0.0-1.0); MONOCYTES % (AUTO) 8.7 %; NEUTROPHILS # (AUTO) 4.8 10^3/uL (1.5-6.6); NEUTROPHILS % (AUTO) 75.9 %; PLT - PLATELET COUNT 153 10^3/uL (130-450); RED BLOOD COUNT 4.47 10^6/uL (4.70-6.10); RED CELL DISTRIBUTION WIDTH 13.7 % (12.0-15.0); WHITE BLOOD COUNT 6.3 x10^3/uL (4.8-10.8)
[2023-05-24 18:23] LABS: LIPASE 20 U/L (11-82)
[2023-05-24 18:24] LABS: ALBUMIN 3.8 g/dL (3.2-5.5); ALBUMIN/GLOBULIN RATIO 1.2 (1.0-2.2); ALKALINE PHOSPHATASE 56 IU/L (42-121); ALT ALANINE AMINOTRANSFERASE < 3 IU/L (10-60); AST ASPARTATE AMINOTRANSFERASE 6 IU/L (10-42); BILIRUBIN,TOTAL 1.2 mg/dL (0.2-1.0); BUN - BLOOD UREA NITROGEN 70 mg/dL (6-20); CALCIUM 9.2 mg/dL (8.5-10.3); CARBON DIOXIDE - CO2 28 mmol/L (21-32); CHLORIDE 97 mmol/L (101-111); CREATININE 2.1 mg/dL (0.6-1.3); GFR - MDRD 31 (>89); GLUCOSE 108 mg/dL (74-104); POTASSIUM 4.7 mmol/L (3.5-4.5); SODIUM 134 mmol/L (135-145); TOTAL PROTEIN 6.9 g/dL (6.4-8.9)
[2023-05-24 18:31] LABS: BILIRUBIN,URINE SMALL (NEGATIVE); GLUCOSE, URINE (UA) NEGATIVE (NEGATIVE); KETONES,URINE (UA) TRACE mg/dL (NEGATIVE); LEUKOCYTE ESTERASE, URINE NEGATIVE (NEGATIVE); NITRITE,URINE NEGATIVE (NEGATIVE); OCCULT BLOOD,URINE TRACE-INTA (NEGATIVE); PH,URINE 5.5 PH (5.0-7.5); PROTEIN,URINE NEGATIVE (NEGATIVE); UROBILINOGEN,URINE 0.2 (NORMAL) E.U./dL (NORMAL)
[2023-05-24 18:32] LABS: CLARITY,URINE CLEAR (CLEAR)
[2023-05-24 20:10] VITALS: BP 123/60; O2SAT 98
== END 2023-05-24 20:34 | disposition home or self-care (01) ==
LOC: EDUNIT# → ED 17:32
DX: E86.0 Dehydration (principal); I10 Essential (primary) hypertension; Z87.891 Personal history of nicotine dependence
CPT/HCPCS: 36415; 51701; 80053; 81001; 81003; 83690; 85025; 87086; 99283

== ENCOUNTER 2023-05-24 20:30 | Outpatient (CLI) | payer OTHER | END 2023-05-24 23:59 | LOC: EMS 20:30 | PROVIDERS: ATTEND Emergency Medicine | DX: R41.0 Disorientation, unspecified (principal); E86.0 Dehydration; F03.90 Unspecified dementia, unspecified severity, without behavioral disturbance, psychotic disturbance, mood disturbance, and anxiety | CPT/HCPCS: A0425; A0428 ==

== ENCOUNTER 2023-06-04 16:33 | Outpatient (CLI) | payer OTHER | END 2023-06-04 16:34 | disposition critical access hospital (66) | LOC: EMS 16:33 | DX: I46.9 Cardiac arrest, cause unspecified (principal) | CPT/HCPCS: A0425; A0427 ==

== ENCOUNTER 2023-06-04 16:35 | Emergency (ER) | payer OTHER ==
[2023-06-04] MEDS: CALCIUM CHLORIDE ABBOJECT 1000MG/10 ML SYRINGE IVP STA (16:37)
[2023-06-04] MEDS: EPINEPHrine ABBOJECT 1 MG/10 ML SYRINGE IVP STA (16:40)
[2023-06-04] MEDS: SODIUM BICARBONATE ABBOJECT 50 MEQ/50 ML SYRINGE IVP STA (16:42)
[2023-06-04] MEDS: ATROPINE ABBOJECT 0.5 MG/5 ML SYRINGE IVP STA (16:51)
[2023-06-04 16:54] LABS: BASOPHILS % (AUTO) 0.6 %; EOSINOPHILS % (AUTO) 1.1 %; HCT - HEMATOCRIT 38.2 % (42.0-52.0); HGB - HEMOGLOBIN 11.3 g/dL (14.0-18.0); LYMPHOCYTES % (AUTO) 46.2 %; MEAN CORPUSCULAR HEMOGLOBIN 30.1 pg (27.0-31.0); MEAN CORPUSCULAR HGB CONC 29.6 g/dL (32.0-36.0); MEAN CORPUSCULAR VOLUME 101.9 fL (80.0-94.0); MEAN PLATELET VOLUME 11.7 fL (7.4-11.4); MONOCYTES % (AUTO) 4.6 %; NEUTROPHILS % (AUTO) 39.3 %; PLT - PLATELET COUNT 125 10^3/uL (130-450); RED BLOOD COUNT 3.75 10^6/uL (4.70-6.10); RED CELL DISTRIBUTION WIDTH 13.8 % (12.0-15.0)
[2023-06-04 16:58] VITALS: BP 0/0
[2023-06-04 17:03] LABS: SLIDE REVIEW? Indicated
[2023-06-04 17:04] LABS: ABNORMAL LYMPHS % (MANUAL) 0 %
[2023-06-04] MEDS: SODIUM CHLORIDE 0.9% 1,000 ML IV STA (17:05)
[2023-06-04] MEDS: EPINEPHrine 4 MG in DEXTROSE 5% 246 ML IV STA (17:06)
[2023-06-04 17:18] LABS: BAND NEUTROPHILS % (MANUAL) 2 %; EOSINOPHILS # (MANUAL) 0.1 10^3/uL (0-0.7); LYMPHOCYTES # (MANUAL) 6.7 10^3/uL (1.5-3.5); LYMPHOCYTES % (MANUAL) 48 %; METAMYELOCYTES % (MANUAL) 3 %; MONOCYTES # (MANUAL) 0.7 10^3/uL (0.0-1.0); MYELOCYTES % (MANUAL) 1 %; NEUTROPHILS # (MANUAL) 5.9 10^3/uL (1.5-6.6)
[2023-06-04 17:22] LABS: DIFFERENTIAL COMMENT MANUAL DIFFERENTIAL; PLATELET ESTIMATE, MANUAL DECREASED (<130,000) (NORMAL); PLATELET MORPHOLOGY NORMAL APPEARANCE (NORMAL); RBC MORPHOLOGY (MULTIPLE) 2+ ACANTHOCYTES (NORMAL)
[2023-06-04 17:32] LABS: TROPONIN I HIGH SENSITIVITY 73.4 ng/L (2.3-19.7)
--- NOTE | 2023-06-04 17:32 | ED Physician Documentation ---
PD HPI CPR - Stated complaint Stated Complaint: ROSC - Chief complaint Chief Complaint: Critical Care - History obtained from History obtained from: EMS - Additional information Additional information: 78-year-old gentleman brought in from local SNF after ROSC. He has been undergoing CPR since 4 PM. AED for BLS showed no shock advised and he was in a wide-complex variable rhythm prior to arrival but not V. tach or V-fib. On arrival he is undergoing CPR again as he has lost pulses. POLST accompanies him, says full code, but no intubation. He had a prolonged stay here for probably social reasons and is under court court appointed guardianship. PD PAST MEDICAL HISTORY - Past Medical History Cardiovascular: Hypertension, High cholesterol Respiratory: None Neuro: Dementia, CVA, Other Endocrine/Autoimmune: None GI: None : Other Psych: Depression Musculoskeletal: Fatigue - Past Surgical History Past Surgical History: Yes - Present Medications Home Medications: Ambulatory Orders Medication Instructions Recorded Confirmed Acetaminophen [Tylenol] 650 mg PO Q4HR PRN #30 tab 04/05/23 Albuterol 2.5 mg INH RTQ4H PRN 30 Days ml 04/05/23 Atorvastatin [Lipitor] 40 mg PO HS #30 tab 04/05/23 Calcium Carbonate [Tums (Calcium 500 mg PO 0900,1700 #30 tab 04/05/23 Carbonate 500mg)] Carbidopa/Levodopa 25/100 [Sinemet 1 tab PO 0700,1100,1500,1900 #30 04/05/23 25 mg/100 mg] tab Carbidopa/Levodopa ER 50/200 1 tab PO QPM #30 tab 04/05/23 [Sinemet Cr 50 mg/200 mg] Clopidogrel [Plavix] 75 mg PO DAILY #30 tab 04/05/23 Cod Liver Oil/Zinc Oxide [Desitin] 1 gm TOP BID #30 each 04/05/23 Pantoprazole [Protonix] 40 mg PO QDAC #30 tab 04/05/23 hydroCHLOROthiazide [Hydrodiuril] 25 mg PO MOWEFR #30 tab 04/05/23 lisinopriL [Zestril] 20 mg PO DAILY #30 tab 04/05/23 Bisacodyl Supp [Dulcolax Supp] 10 mg SC DAILY PRN 05/24/23 05/24/23 Mineral Oil [Mineral Oil Enema] 1 ea RC ONCE PRN 05/24/23 05/24/23 Senna [Senokot] 17.2 mg PO DAILY PRN 05/24/23 05/24/23 polyethylene glycoL 3350 [Miralax] 17 gm PO DAILY PRN 05/24/23 05/24/23 - Allergies Allergies/Adverse Reactions: Allergies Allergy/AdvReac Type Severity Reaction Status Date / Time No Known Drug Allergies Allergy Verified 05/24/23 18:29 - Social History Does the pt smoke?: No Smoking Status: Never smoker Does the pt drink ETOH?: No Does the pt have substance abuse?: No PD ED PE NORMAL - Vitals Vital signs reviewed: Yes - General General: Other (Undergoing CPR, he does have some dependent lividity and cyanosis.) - HEENT HEENT: Other (Pupils are fixed and dilated) - Respiratory Respiratory: Other (Rhonchorous breath sounds) - Neuro Eye Opening: None Motor: None Verbal: None GCS Score: 3 Results - Vitals Vitals: Vital Signs - 24 hr 06/04/23 16:36 Heart Rate 0 L Respiratory 0 L Rate Blood Pressure 0/0 L Oxygen O2 Source Ambu bag - Labs Labs: Laboratory Tests 06/04/23 06/04/23 16:46 16:46 WBC 14.0 H RBC 3.75 L Hgb 11.3 L Hct 38.2 L MCV 101.9 H MCH 30.1 MCHC 29.6 L RDW 13.8 Plt Count 125 L MPV 11.7 H Neut # (Auto) Not Reportable Lymph # (Auto) Not Reportable [place] # (Auto) Not Reportable Eos # (Auto) Not Reportable Baso # (Auto) Not Reportable Absolute Nucleated RBC Not Reportable Total Counted 100 Band Neuts % (Manual) 2 Abnorm Lymph % (Manual) 0 Metamyelocytes % 3 H Myelocytes % 1 H Nucleated RBC % Not Reportable Neutrophils # (Manual) 5.9 Lymphocytes # (Manual) 6.7 H Monocytes # (Manual) 0.7 Eosinophils # (Manual) 0.1 Basophils # (Manual) 0.0 Differential Comment MANUAL DIFFERENTIAL Manual Slide Review Indicated Platelet Estimate DECREASED (<130,000) Platelet Morphology NORMAL APPEARANCE RBC Morph Micro Appear 2+ ACANTHOCYTES Sodium 142 Potassium 4.1 Chloride 106 Carbon Dioxide 19 L Anion Gap 17.0 H BUN 57 H Creatinine 1.6 H Estimated GFR (MDRD) 42 L Glucose 247 H Calcium 13.1 H* Total Bilirubin 1.0 AST 51 H ALT 5 L Alkaline Phosphatase 61 Troponin I High Sens 73.4 H* Total Protein 5.4 L Albumin 2.9 L Globulin 2.5 Albumin/Globulin Ratio 1.2 Lipase 51 Procedures - Intubation - Major Provider: Emergency physician Blade: Glidescope Tube: Size-enter number (7.5), Cuffed Route: Oral Confirmation: Direct visualization, End tidal CO2 Complications: No compications PD Medical Decision Making - ED course ED course: 78-year-old gentleman had cardiac arrest at a SNF, was resuscitated with ROSC but then lost pulses again on the way here. On arrival he is undergoing CPR and ACLS protocol was ongoing. He seemed to respond to epinephrine and CPR multiple times, but after a few minutes when he had ROSC he would code again, he was in a wide-complex atrial fibrillation. There was a concern for hyperkalemia given recent emergency department visit for dehydration and he was treated with calcium chloride and bicarb as well. Social work was able to get his guardian on the phone and we discussed goals of care and she at that point told me that if he were to code again that he would not want further resuscitation and when he did code again efforts were ceased and time of at 1716. - Critical Care Time(min): 35 Time Includes: Direct patient care, Review records, Reassess patient, Document care, Coordinate care Data interpretation: Labs, Pulse ox Departure - Departure Disposition: 20 Clinical Impression: Sudden cardiac Forms: PCP List
[2023-06-04 17:47] LABS: ALBUMIN 2.9 g/dL (3.2-5.5); ALBUMIN/GLOBULIN RATIO 1.2 (1.0-2.2); CALCIUM 13.1 mg/dL (8.5-10.3); CREATININE 1.6 mg/dL (0.6-1.3); POTASSIUM 4.1 mmol/L (3.5-4.5); TOTAL PROTEIN 5.4 g/dL (6.4-8.9)
== END 2023-06-04 20:50 | disposition expired ==
LOC: EDUNIT# → ED 16:35
DX: I46.9 Cardiac arrest, cause unspecified (principal); I10 Essential (primary) hypertension; E78.00 Pure hypercholesterolemia, unspecified; Z86.73 Personal history of transient ischemic attack (TIA), and cerebral infarction without residual deficits; F03.90 Unspecified dementia, unspecified severity, without behavioral disturbance, psychotic disturbance, mood disturbance, and anxiety; Z79.899 Other long term (current) drug therapy
CPT/HCPCS: 31500; 36415; 80053; 83690; 84484; 85025; 92950; 99291